=== PATIENT | male | born 1950 | race Caucasian/White ===

== ENCOUNTER 2016-08-31 17:43 | Inpatient (IN) | payer BC ==
[~2016-08-31] VITALS: Ht 180.3 cm; Wt 80.0 kg
[2016-08-31 17:45] VITALS: Ht 180.3 cm; Wt 80.0 kg
[2016-08-31] MEDS ORDERED: NITROGLYCERIN 2% 1 GM OINT PKT TD STA (17:48)
[2016-08-31] MEDS ORDERED: ASPIRIN 81 MG TAB PO STA (17:48)
[2016-08-31] MEDS ORDERED: NITROGLYCERIN (SL) 0.4 MG TAB SL PRN (18:00)
[2016-08-31] MEDS ORDERED: ASPI-664 PO (18:02)
[2016-08-31] MEDS ORDERED: DOCU-103 PO (18:02)
[2016-08-31] MEDS ORDERED: INSU100V3 IJ (18:03)
[2016-08-31] MEDS ORDERED: FURO20TA3 PO (18:04)
[2016-08-31] MEDS ORDERED: VALS160T20 PO (18:05)
[2016-08-31] MEDS ORDERED: ALBU18HF INHALATION (18:05)
[2016-08-31] MEDS ORDERED: HYDR-3011 PO (18:07)
[2016-08-31 18:09] LABS: ADD SCAN DIFF NO
[2016-08-31 18:10] LABS: BASOPHIL # 0.1 10^3/ul (0.0-0.1); BASOPHILS % 0.7 % (0.0-2.0); EOSINOPHILS # 0.3 10^3/ul (0.0-0.5); EOSINOPHILS % 2.5 % (0.0-7.0); HEMATOCRIT 34.9 % (42.0-52.0); HEMOGLOBIN 10.6 g/dl (14.0-18.0); LYMPHOCYTES % 9.7 % (15.0-51.0); MEAN CORPUSCULAR HEMOGLOBIN 24.8 pg (29.0-33.0); MEAN CORPUSCULAR HGB CONC 30.4 g/dl (32.0-37.0); MEAN CORPUSCULAR VOLUME 81.7 fl (82.0-101.0); MONOCYTE # 0.9 10^3/ul (0.3-0.9); NEUTROPHIL # 8.4 10^3/ul (1.6-7.5); NEUTROPHILS % 78.4 % (39.0-77.0); PLATELET COUNT 176 10^3/UL (140-415); RED BLOOD COUNT 4.27 10^6/ul (4.70-6.10); RED CELL DISTRIBUTION WIDTH 18.5 % (11.5-14.5); WHITE BLOOD COUNT 10.7 10^3/ul (4.8-10.8)
--- NOTE | 2016-08-31 18:11 | RADRPT ---
PROCEDURE: Chest x-ray CLINICAL INDICATION: Chest pain TECHNIQUE: Chest single view COMPARISON: None FINDINGS: There is mild cardiomegaly. Mild interstitial CHF is seen with small bilateral pleural effusions. Bony thorax is unremarkable IMPRESSION: Cardiomegaly with mild interstitial CHF and small bilateral pleural effusions right greater than lef t RPTAT: HH .Blake Manzo MD, MD Date Time Electronically viewed and signed by .Blake Manzo MD, on 08/31/2016 18:11 .W/
[2016-08-31 18:21] LABS: INR 1.25; PARTIAL THROMBOPLASTIN TIME 29.3 Sec (25.0-35.0); PROTIME 15.8 Sec (12.2-14.2); PT RATIO 1.2
[2016-08-31] MEDS ORDERED: METO25TA7 PO (18:22)
[2016-08-31 18:26] LABS: CREATININE 2.04 mg/dl (0.61-1.24)
[2016-08-31 18:27] LABS: CALCIUM 8.7 mg/dl (8.4-10.2)
[2016-08-31 18:30] VITALS: TEMP 98.3
[2016-08-31 18:39] LABS: TROPONIN-I 0.041 ng/ml (0.00-0.12)
[2016-08-31] MEDS ORDERED: ALBUTEROL 0.083% (NEB) 2.5 MG/3 ML AMP HHN STA (19:12)
[2016-08-31] MEDS ORDERED: IPRATROPIUM (NEB) 0.5 MG/2.5 ML AMP HHN ONE (19:30)
[2016-08-31] MEDS ORDERED: ONDANSETRON 4 MG INJ IV PRN (20:00)
[2016-08-31] MEDS ORDERED: ACETAMINOPHEN 325 MG TAB PO PRN (20:00)
--- NOTE | 2016-08-31 20:09 | ERA ---
ER Documentation Chief Complaint Date/Time DATE: 08/31/16 TIME: 20:07 Chief Complaint SOB HPI Patient is a 65-year-old male with coronary disease, CHF, and diabetes who presents with shortness of breath. The patient was brought in by ambulance. The patient has had 1 week of shortness of breath which has been worsening. He cannot lay down without becoming extremely short of breath. He also has swelling of his leg to the abdomen. He has a previous right lower extremity amputation. His primary doctor is Dr. Bragg. ROS All systems reviewed and are negative except as per history of present illness. Medications Home Meds Reported Medications Metoprolol Succinate* (Toprol XL*) 25 Mg Tab.sr.24h, 25 MG PO DAILY, #30 TAB 08/31/16 Hydroxyzine Hcl* (Hydroxyzine Hcl*) 25 Mg Tablet, 25 MG PO BID Y for ITCHING, # 30 TAB 08/31/16 Albuterol Sulfate* (Ventolin HFA*) 18 Gm Hfa.aer.ad, 2 PUFF INHALATION Q4H, #1 INHALER 08/31/16 Valsartan* (Diovan*) 160 Mg Tablet, 160 MG PO DAILY, TAB 08/31/16 Furosemide* (Furosemide*) 20 Mg Tablet, 20 MG PO DAILY, #60 TAB 08/31/16 Insulin Regular, Human (Humulin R) 100 Unit/1 Ml Vial, 6-15 UNIT IJ BID, VIAL INJECT 6 UNITS-QAM AND 12-15 UNITS-QPM, DEPENDS HOW MUCH BS 08/31/16 Docusate Sodium (Docusil) 100 Mg Capsule, 100 MG PO BID, #60 CAP 08/31/16 Aspirin* (Aspirin* EC) 81 Mg Tablet.dr, 81 MG PO DAILY, TAB 08/31/16 Allergies Allergies: Coded Allergies: No Known Allergy (Unverified , 08/31/16) PMhx/Soc Positive for coronary disease, CHF, and diabetes FmHx Family History: No diabetes Physical Exam Vitals Vital Signs Date Time Temp Pulse Resp B/P Pulse Ox O2 Delivery O2 Flow Rate FiO2 08/31/16 19:46 2.0 08/31/16 19:45 87 20 97 Nasal Cannula 2.0 08/31/16 18:30 98.3 83 16 129/82 100 Room Air 08/31/16 17:50 0 08/31/16 17:45 85 33 133/87 98 Physical Exam Const: Moderate distress secondary to shortness of breath Head: Atraumatic Eyes: Normal Conjunctiva ENT: Normal External Ears, Nose and Mouth. Neck: Full range of motion..~ No meningismus. Resp: Decreased breath sounds bilaterally Cardio: Regular rate and rhythm, no murmurs Abd: Soft, edema to the lower abdomen Skin: No petechiae or rashes Back: No midline or flank tenderness Ext: Previous right lower extremity amputation, left lower extremity edema Neur: Awake and alert Psych: Normal Mood and Affect Result Diagram: 08/31/16 1750 08/31/16 175 Results 24 hrs Laboratory Tests Test 08/31/16 17:50 White Blood Count 10.710^3/ul Red Blood Count 4.2710^6/ul Hemoglobin 10.6g/dl Hematocrit 34.9% Mean Corpuscular Volume 81.7fl Mean Corpuscular Hemoglobin 24.8pg Mean Corpuscular Hemoglobin Concent 30.4g/dl Red Cell Distribution Width 18.5% Platelet Count 63134^3/UL Mean Platelet Volume 10.0fl Neutrophils % 78.4% Lymphocytes % 9.7% Monocytes % 8.0% Eosinophils % 2.5% Basophils % 0.7% Nucleated Red Blood Cells % 0.0/100WBC Neutrophils # 8.410^3/ul Lymphocytes # 1.010^3/ul Monocytes # 0.910^3/ul Eosinophils # 0.310^3/ul Basophils # 0.110^3/ul Nucleated Red Blood Cells # 0.010^3/ul Prothrombin Time 15.8Sec Prothrombin Time Ratio 1.2 INR International Normalized Ratio 1.25 Activated Partial Thromboplast Time 29.3Sec Sodium Level 140mmol/L Potassium Level 5.0mmol/L Chloride Level 104mmol/L Carbon Dioxide Level 23mmol/L Anion Gap 18 Blood Urea Nitrogen 43mg/dl Creatinine 2.04mg/dl Glucose Level 95mg/dl Calcium Level 8.7mg/dl Troponin I 0.041ng/ml Current Medications Medications (Trade) Dose Ordered Sig/Deborah Route PRN Reason Start Time Stop Time Status Last Admin Dose Admin Aspirin (Aspirin) 162 mg ONCE STAT PO 08/31/16 17:48 08/31/16 17:49 DC 08/31/16 17:58 Nitroglycerin (Nitroglycerin 2% Oint) 1 inch ONCE STAT TD 08/31/16 17:48 08/31/16 17:49 DC 08/31/16 17:59 Nitroglycerin (Nitroglycerin (Sl Tab) 0.4 Mg) 1 tab Q5M UP TO 3 DOSES PRN SL CHEST PAIN 08/31/16 18:00 08/31/16 17:57 Albuterol (Proventil 0.083% (Neb)) 5 mg ONCE STAT HHN 08/31/16 19:12 08/31/16 19:13 DC 08/31/16 19:44 Ipratropium [place] (Atrovent 0.02% (Neb)) 0.5 mg ONCE ONCE HHN 08/31/16 19:30 08/31/16 19:31 DC 08/31/16 19:44 Ondansetron HCl (Zofran Inj) 4 mg ER BRIDGE PRN IV NAUSEA AND/OR VOMITING 08/31/16 20:00 09/01/16 19:59 Acetaminophen (Tylenol Tab) 650 mg ER BRIDGE PRN PO MILD PAIN/FEVER 08/31/16 20:00 09/01/16 19:59 Procedures/MDM EKG read by me: Rate/Rhythm: Left bundle branch block a normal rate Intervals: Normal Impression: Left bundle branch block with negative Sgarbossa criteria Chest x-ray shows cardiomegaly, edema, and pleural effusions per radiology. Patient is a 65-year-old male with cardiac disease who presents with what appears to be acute CHF exacerbation. I believe he has anasarca with swelling to the abdomen as well. The patient was given Lasix, aspirin, and nitroglycerin. The patient will be admitted to the care of Dr. Perez from the panel team. Patient will be admitted to a trauma to bed. At this point I doubt pneumonia or pneumothorax, or pulmonary embolism. Departure Diagnosis: Primary Impression: Shortness of breath Additional Impressions: Acute exacerbation of CHF (congestive heart failure) Qualified Code: I50.9 - Acute on chronic congestive heart failure, unspecified congestive heart failure type Anemia Qualified Code: D64.9 - Anemia, unspecified type Condition: DHARA Ferrell MD Aug 31, 2016 20:09
[2016-08-31 21:00] VITALS: BP 133/74; PULSE 89; RESP 17
[2016-09-01] VITALS (12 sets, daily range): BP systolic 114–139; BP diastolic 59–77; PULSE 75–94; RESP 16–19
[2016-09-01 00:16] LABS: TROPONIN-I 0.04 ng/ml (0.00-0.12)
[2016-09-01 00:21] LABS: CK-MB 0.79 ng/ml (0.0-2.4)
[2016-09-01] MEDS ORDERED: GLUCOSE GEL 15 GRAM TUBE BUCCAL PRN (05:00)
[2016-09-01] MEDS ORDERED: GLUCOSE GEL 15 GRAM TUBE PO PRN ×2 (05:00)
[2016-09-01] MEDS ORDERED: ONDANSETRON 4 MG INJ IV PRN (05:00)
[2016-09-01] MEDS ORDERED: GLUCAGON 1 MG INJ IM PRN (05:00)
[2016-09-01] MEDS ORDERED: DEXTROSE 50% 50 ML SYRINGE IV PRN ×2 (05:00)
[2016-09-01] MEDS ORDERED: ACETAMINOPHEN 325 MG TAB PO PRN (05:00)
[2016-09-01] MEDS ORDERED: FUROSEMIDE 40 MG INJ IV SCH (06:00)
--- NOTE | 2016-09-01 07:53 | HP ---
DATE OF ADMISSION: 08/31/2016 TIME SEEN: 2300 CHIEF COMPLAINT: Shortness of breath. HISTORY OF PRESENT ILLNESS: The patient is a 65-year-old male with a history of diabetes, CHF, righ t above knee amputation, probable old AL in [place] a few years ago, peripheral neuropathy, diabetes , and hypertension who presented to the emergency department with shortness of breath. The symptoms have been progressively getting worse for over a week now. The patient's home medication includes albuterol as well as among other medications, but the patient has not always been compliant with med ication. He also reported left lower extremity swelling (notes that he has right-above knee amputat ion) and also orthopnea. Denied chest pain, nausea, vomiting, diaphoresis, fever, chills. When he presented to the ER, vitals were stable except he was initially tachypneic with respiratory rate in the 30s. Laboratory value shows a hemoglobin of 10.6, BUN 43, creatinine 2, otherwise the r est of his basic labs are within normal limits. Chest x-ray shows cardiomegaly with mild interstitial CHF and small bilateral pleural effusions, rig ht greater than left. REVIEW OF SYSTEMS: A 12-point review was performed, negative except as mentioned in the HPI. PAST MEDICAL HISTORY: As per HPI. PAST SURGICAL HISTORY: Right above-knee amputation. SURGICAL HISTORY: Right above-knee amputation. ALLERGIES: NO KNOWN DRUG ALLERGIES. HOME MEDICATIONS: 1. Albuterol. 2. Toprol XL. 3. Diovan 4. Aspirin. 5. Atarax 6. Lasix. 8. Colace. 9. Regular insulin. PHYSICAL EXAMINATION: VITAL SIGNS: Stable. GENERAL: The patient in some distress due to shortness of breath. HEENT: Normocephalic, atraumatic. Extraocular muscles are intact. Pupils are reactive to light. No scleral icterus. CARDIOVASCULAR: Regular rate and rhythm. LUNGS: He has decreased breath sounds at the bases. ABDOMEN: Soft. There is anasarca. Positive bowel sounds. There is some discomfort to deep palpat ion with no guarding, no rigidity, no rebound tenderness. EXTREMITIES: Right above-knee amputation and left lower extremity edema. LABORATORY DATA: Pertinent positives as mentioned in the HPI. IMAGING: Chest x-ray results as mentioned in the HPI. IMPRESSION: 1. Shortness of breath, combination of congestive heart failure exacerbation and renal insufficienc y. 2. Congestive heart failure exacerbation. 3. Presumed acute renal insufficiency. 4. Likely history of coronary artery disease. 5. Hypertension. 6. Type 1 diabetes. PLAN: Continue telemetry monitoring. He will receive breathing treatments. Will hold Lasix for no w given elevated creatinine. Will give albumin. We will monitor her urine output closely. We will obtain a 2-D echo. We will trend his troponins, the first 2 so far have been negative. We will tabatha ce a cardiology consult. Will continue his home medications with adjustments as needed. He will be on insulin for diabetes. Will check A1c, fasting lipid, and TSH in the morning. Will check for fe rritin, iron profile, as well as FOBT to work up his microcytic anemia. Further workup and management will be per clinical course. Dictated By: BRADLEY GUTIERREZ/IMTIAZ Conf#: [id number] DID#: [id number]
[2016-09-01 07:58] LABS: ADD SCAN DIFF NO
[2016-09-01] MEDS: INSULIN ASPART [NOVOLOG] 3 ML PEN SC SCH ×4 (08:00→21:00)
[2016-09-01 08:07] LABS: BASOPHILS % 0.3 % (0.0-2.0); EOSINOPHILS # 0.1 10^3/ul (0.0-0.5); EOSINOPHILS % 0.8 % (0.0-7.0); HEMATOCRIT 32.1 % (42.0-52.0); HEMOGLOBIN 9.6 g/dl (14.0-18.0); LYMPHOCYTES # 0.8 10^3/ul (0.8-2.9); LYMPHOCYTES % 6.3 % (15.0-51.0); MEAN CORPUSCULAR HEMOGLOBIN 24.1 pg (29.0-33.0); MEAN CORPUSCULAR HGB CONC 29.9 g/dl (32.0-37.0); MEAN CORPUSCULAR VOLUME 80.7 fl (82.0-101.0); MEAN PLATELET VOLUME 11.1 fl (7.4-10.4); MONOCYTE # 1.1 10^3/ul (0.3-0.9); MONOCYTES % 8.3 % (0.0-11.0); NEUTROPHIL # 10.6 10^3/ul (1.6-7.5); NEUTROPHILS % 83.7 % (39.0-77.0); PLATELET COUNT 162 10^3/UL (140-415); RED BLOOD COUNT 3.98 10^6/ul (4.70-6.10); RED CELL DISTRIBUTION WIDTH 18.4 % (11.5-14.5); WHITE BLOOD COUNT 12.7 10^3/ul (4.8-10.8)
[2016-09-01 08:26] LABS: ALBUMIN 3.3 g/dl (3.3-4.9); POTASSIUM 4.8 mmol/L (3.5-5.1)
[2016-09-01 08:28] LABS: BILIRUBIN,INDIRECT 0.7 mg/dl (0-1.1); BILIRUBIN,TOTAL 0.7 mg/dl (0.2-1.3); CREATININE 1.94 mg/dl (0.61-1.24)
[2016-09-01 08:29] LABS: CALCIUM 8.6 mg/dl (8.4-10.2); TOTAL PROTEIN 7.1 g/dl (6.1-8.1)
[2016-09-01] MEDS ORDERED: hydrOXYzine HCL 25 MG TAB GTB PRN (08:30)
[2016-09-01 08:41] LABS: ALBUMIN/GLOBULIN RATIO 0.86; CHOL/HDL RATIO 4.2 RATIO
[2016-09-01 08:42] LABS: TROPONIN-I 0.045 ng/ml (0.00-0.12)
--- NOTE | 2016-09-01 08:51 | RADRPT ---
PROCEDURE: US KIDNEYS AND BLADDER CLINICAL INDICATION: Renal insufficiency TECHNIQUE: Sonographic evaluation of the kidneys and bladder was performed using a curved array tr ansducer. COMPARISON: None. FINDINGS: Right kidney measures 10.7 cm in length. Left kidney measures 10.8 cm in length. Moderate bilateral cortical thinning and echogenicity suggestive of medical renal disease. Benign appearing cyst is seen in the right kidney. No hydronephrosis bilaterally. The incompletely distended bladder is grossly unremarkable. Bilateral ureteral jets are seen. Moderate ascites is seen. IMPRESSION: Moderate bilateral cortical thinning and echogenicity suggestive of medical renal disease. No hydro nephrosis. Benign appearing cyst seen in the right kidney. Moderate ascites. RPTAT:PP .Femi Feliz MD, Date Time Electronically viewed and signed by .Femi Feliz MD, on 09/01/2016 08:51 .V/
[2016-09-01 08:54] LABS: CK-MB 0.66 ng/ml (0.0-2.4)
[2016-09-01] MEDS ORDERED: VALSARTAN 160 MG TAB PO SCH (09:00)
[2016-09-01] MEDS: METOPROLOL (XL) 25 MG TAB PO SCH (09:33)
[2016-09-01] MEDS: DOCUSATE SODIUM 100 MG CAP PO SCH (09:33)
[2016-09-01] MEDS: ASPIRIN (EC) 81 MG TAB PO SCH (09:33)
[2016-09-01] MEDS: HEPARIN 5,000 UNIT/0.5 ML VIAL SC SCH ×2 (09:35→22:00)
--- NOTE | 2016-09-01 10:21 | PN ---
Date/Time of Note Date/Time of Note DATE: 09/01/16 TIME: 10:17 Assessment/Plan VTE Prophylaxis VTE Prophylaxis Intervention: heparin Lines/Catheters IV [facility] Saline Lock Assessment/Plan Chief Complaint/Hosp Course Assessment and plan 1. Dyspnea secondary to CHF exacerbation and renal insufficiency. Medications to be renally dosed. Surgeon Chief and caterpillar driver consulted. Diuretic per nephrology recommendations. Continue on O2 and titrate down as tolerated. Bronchodilators as needed. 2. CHF exacerbation. Echocardiogram pending. Follow up on result. Continue optimization with cardiovascular medications 3. Acute on likely chronic kidney disease. Monitor renal panel. Avoid nephrotoxic medications as possible. 4. History of CAD. Continue on antiplatelet therapy 5. History of hypertension. On antihypertensives and adjust as needed 6. Diabetes. Follow up on A1c. Continue insulin regimen and adjust as needed Disposition and plan: Await cardiology section crews activities clerk input. Continue on O2. Follow-up with tachycardia gram. Continue inpatient monitoring Discussed plan of care with Dr. Rasmussen Problems: Subjective 24 Hr Interval Summary Free Text/Dictation Still reports having some shortness of breath. Denies any chest pain Exam/Review of Systems Vital Signs Vitals Vital Signs Date Time Temp Pulse Resp B/P Pulse Ox O2 Delivery O2 Flow Rate FiO2 09/01/16 09:04 89 09/01/16 07:58 Nasal Cannula 2.0 09/01/16 07:39 98.4 19 124/74 97 Intake and Output 08/31/16 08/31/16 09/01/16 15:00 23:00 07:00 Output Total 250 ml Balance -250 ml Exam Constitutional: alert, oriented Psych: nl mood/affect Head: normocephalic Eyes: nl conjunctiva Neck: non-tender, supple, No jvd Respiratory: diminished breath sounds, wheezing Cardiovascular: other (regular rate) Gastrointestinal: other (protuberant,), soft Musculoskeletal: other (right AKA), swelling (left lower extremity) Neurological: INDEPENDENT JEWELER II-XII intact, nl mental status, nl speech Skin: No rash or lesions Results Result Diagram: 09/01/16 0710 09/01/16 0710 Results 24 hrs Laboratory Tests Test 08/31/16 17:50 08/31/16 23:30 09/01/16 00:34 09/01/16 07:10 White Blood Count 10.7 12.7 H Red Blood Count 4.27 L 3.98 L Hemoglobin 10.6 L 9.6 L Hematocrit 34.9 L 32.1 L Mean Corpuscular Volume 81.7 L 80.7 L Mean Corpuscular Hemoglobin 24.8 L 24.1 L Mean Corpuscular Hemoglobin Concent 30.4 L 29.9 L Red Cell Distribution Width 18.5 H 18.4 H Platelet Count 176 162 Mean Platelet Volume 10.0 11.1 H Neutrophils % 78.4 H 83.7 H Lymphocytes % 9.7 L 6.3 L Monocytes % 8.0 8.3 Eosinophils % 2.5 0.8 Basophils % 0.7 0.3 Nucleated Red Blood Cells % 0.0 0.0 Neutrophils # 8.4 H 10.6 H Lymphocytes # 1.0 0.8 Monocytes # 0.9 1.1 H Eosinophils # 0.3 0.1 Basophils # 0.1 0.0 Nucleated Red Blood Cells # 0.0 0.0 Prothrombin Time 15.8 H Prothrombin Time Ratio 1.2 INR International Normalized Ratio 1.25 Activated Partial Thromboplast Time 29.3 Sodium Level 140 139 Potassium Level 5.0 4.8 Chloride Level 104 105 Carbon Dioxide Level 23 21 Anion Gap 18 H 18 H Blood Urea Nitrogen 43 H 41 H Creatinine 2.04 H 1.94 H Glucose Level 95 139 # Calcium Level 8.7 8.6 Troponin I 0.041 0.040 0.045 Creatine Kinase 38 38 Creatine Kinase Index 2.1 1.7 Creatinine Kinase MB (Mass) 0.79 0.66 Bedside Glucose 125 Hemoglobin A1c 5.4 Total Bilirubin 0.7 Direct Bilirubin 0.00 Indirect Bilirubin 0.7 Aspartate Amino Transf (AST/SGOT) 17 Alanine Aminotransferase (ALT/SGPT) 19 Alkaline Phosphatase 128 H Total Protein 7.1 Albumin 3.3 Globulin 3.80 H Albumin/Globulin Ratio 0.86 Triglycerides Level 81 Cholesterol Level 124 LDL Cholesterol, Calculated 79 HDL Cholesterol 29 L Cholesterol/HDL Ratio 4.2 Thyroid Stimulating Hormone (TSH) Pending Test 09/01/16 08:20 Bedside Glucose 131 Medications Medications Current Medications Heparin Sodium (Porcine) (Heparin (5000 Units/0.5 ml)) 5,000 unit BID SC Last administered on 09/01/16t 09:35; Admin Dose 5,000 UNIT; Start 09/01/16 at 09:00 Acetaminophen (Tylenol Tab) 650 mg Q6H PRN PO PAIN AND OR ELEVATED TEMP; Start 09/01/16 at 05:00 Insulin Glargine (Lantus) 12 unit DAILY@20 SC ; Start 09/01/16 at 20:00 Diagnostic Test (Pha) (Accu-Chek) 1 ea 02 XX ; Start 09/02/16 at 02:00 Ondansetron HCl (Zofran Inj) 4 mg Q6H PRN IV NAUSEA AND/OR VOMITING; Start at 05:00 Miscellaneous Information 1 ea NOTE XX ; Start 09/01/16 at 05:00 Glucose (Glutose) 15 gm Q15M PRN PO DECREASED GLUCOSE; Start 09/01/16 at 05:00 Glucose (Glutose) 22.5 gm Q15M PRN PO DECREASED GLUCOSE; Start 09/01/16 at 05: 00 Dextrose (D50w Syringe) 25 ml Q15M PRN IV DECREASED GLUCOSE; Start 09/01/16 at 05:00 Dextrose (D50w Syringe) 50 ml Q15M PRN IV DECREASED GLUCOSE; Start 09/01/16 at 05:00 Glucagon (Glucagen) 1 mg Q15M PRN IM DECREASED GLUCOSE; Start 09/01/16 at 05:00 Glucose (Glutose) 15 gm Q15M PRN BUCCAL DECREASED GLUCOSE; Start 09/01/16 at 05 :00 Aspirin (Halfprin) 81 mg DAILY PO Last administered on 09/01/16 09:33; Admin Dose 81 MG; Start 09/01/16 at 09:00 Metoprolol Succinate (Toprol Xl) 25 mg DAILY PO Last administered on 09/01/16 09:33; Admin Dose 25 MG; Start 09/01/16 at 09:00 Hydroxyzine HCl (Atarax) 25 mg Q6H PRN GTB ITCHING; Start 09/01/16 at 08:30 Valsartan (Diovan) 160 mg DAILY PO Last administered on 09/01/16 09:33; Admin Dose 160 MG; Start 09/01/16 at 09:00 Docusate Sodium (Colace) 100 mg DAILY PO Last administered on 09/01/16 09:33; Admin Dose 100 MG; Start 09/01/16 at 09:00 URSULA COOK Sep 01, 2016 10:20
--- NOTE | 2016-09-01 12:52 | CONS ---
DATE OF ADMISSION: 08/31/2016 DATE OF CONSULTATION: 09/01/2016 HISTORY OF PRESENT ILLNESS: Thank you very much for allowing me to evaluate this 65-year-old male w ith known diabetes, history of heart failure, peripheral vascular disease with above the right knee amputation, antecedent [place], neuropathy, admitted to the hospital with shortness of breath with eviden ce of renal insufficiency. HISTORICAL EVENTS: As you well know, this patient does have known diabetes and objective evidence m acrovascular disease, accompanied by coronary artery disease, admitted to the hospital with increasi ng shortness of breath during the last week. My conversation with the patient's daughter revealed t hat he does have underlying renal disease and laboratory studies will hopefully be forwarded to me f or my review. He presently remains tachypneic per the family and has had no chest pain. MEDICATIONS PRIOR TO ADMISSION INCLUDE: 1. Albuterol. 2. Toprol. 3. Diovan. 4. Aspirin. 5. Atarax 6. Lasix. 7. Colace. 8. Regular insulin. PHYSICAL EXAMINATION: VITAL SIGNS: BP 114/59, respirations were 22, temperature 99.2. EYES: Extraocular muscles were full. NOSE, MOUTH, AND THROAT: Normal. NECK: Supple. LUNGS: There were rales and rhonchi bilaterally. HEART: Rhythm slightly irregular without third sound, 1/6 systolic murmur. ABDOMEN: Nontender. Liver and spleen were not palpable. No masses or tenderness were noted. EXTREMITIES: There was amputation of the right lower extremity, no edema. Sacrum revealed 2+ edema . LABORATORY AND DIAGNOSTIC STUDIES: Hematocrit 32.1 today, yesterday 34.9, white count 10,700 yester day, 12,700 today, platelet count was normal. Creatinine was 1.94 today, yesterday 2.04. Electroly maik were unrevealing. IMAGING STUDIES: Included a renal ultrasound that revealed cortical thinning bilaterally without hy dronephrosis and a chest x-ray compatible with congestive heart failure. IMPRESSION: 1. 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 2. At this point, would continue his ARB as it will be beneficial with respect to treatment of his CHF and continued diurese. Pending reviewing laboratory studies from his regular physician and obse rving creatinines going forward, I will decide whether to discontinue ARB. I will be glad to follow him with you. Dictated By: JACKIE SCOTT/IMTIAZ Conf#: [id number] DID#: [id number]
[2016-09-01 13:32] LABS: THYROID STIMULATING HORMONE 2.65 MIU/L (0.465-4.680)
[2016-09-01 14:03] LABS: IRON 13 ug/dl (35-150)
[2016-09-01 14:12] LABS: TOTAL IRON BINDING CAPACITY 275 ug/dl (241-421)
[2016-09-01 14:31] LABS: FERRITIN 92.1 ng/ml (11.1-264.0)
[2016-09-01 15:36] LABS: ADD UMIC YES; URINE BILIRUBIN (Dip) NEGATIVE (NEGATIVE); URINE BLOOD (Dip) TRACE (NEGATIVE); URINE COLOR LT. YELLOW (YELLOW); URINE GLUCOSE (Dip) NEGATIVE (NEGATIVE); URINE KETONES (Dip) NEGATIVE (NEGATIVE); URINE LEUKOCYTE ESTERASE (Dip) NEGATIVE (NEGATIVE); URINE NITRITE (Dip) NEGATIVE (NEGATIVE); URINE TOTAL PROTEIN (Dip) 2+ (NEGATIVE); URINE UROBILINOGEN (Dip) 0.2 E.U./dL (0.1-1.0)
[2016-09-01 15:53] LABS: TRANSITIONAL EPI CELLS,URINE MODERATE; URINE RBCS 0-2 /HPF (0)
[2016-09-01 15:54] LABS: BACTERIA,URINE FEW
[2016-09-01 16:08] LABS: PROTEIN/CREAT RATIO 1.75 RATIO
--- NOTE | 2016-09-01 17:16 | RADRPT ---
PROCEDURE: Limited US Pelvis. CLINICAL INDICATION: Pre and post bladder scan for urinary retention. TECHNIQUE: Multiple sonographic images of the pelvis were obtained utilizing a transabdominal and endovaginal technique. The images were reviewed on a PACS workstation. COMPARISON: No. FINDINGS: The urinary bladder measures 7.4 x 4.35 7.3 cm for total volume of 164 ml. Postvoid images revealed the urinary bladder measuring 7.4 x 4.3 x 6 cm. Postvoid residual of 101 ml is noted. There is a m oderate amount of ascites. IMPRESSION: 1. 100.1 ml postvoid residual. 2. Ascites. Physician Bridget Date Time Electronically viewed and signed by Physician Bridget on 09/01/2016 17:16 /
[2016-09-01] MEDS: INSULIN GLARGINE [LANtus] 3 ML PEN SC SCH (21:48)
[2016-09-02] VITALS (12 sets, daily range): BP systolic 108–133; BP diastolic 59–63; PULSE 72–77; RESP 16–20
--- NOTE | 2016-09-02 00:17 | RADRPT ---
Echocardiogram Report Patient Name: GERSON LYN Gender: Male Date: 1950 Study Date: 01-Sep-2016 Collarette Separator: Luis Miguel Coley [facility] Location: [id number] Ref. Physician: BRADLEY SETHI Quality: Adequate Procedures: Transthoracic echocardiogram with complete 2D, M-Mode, and doppler examination. Indications: Congestive Heart Failure. 2D/M Mode Doppler Measurement Value Normal Ranges Measurement Value Normal Ranges LVIDd 2D 5.5 3.5 - 5.6 cm AV Peak Evangelista 1.1 m/sec LVIDs 2D 4.9 2.1 - 4.1 cm AV Peak PG 4.4 mmHg LVPWd 2D 0.9 0.6 - 1.1 cm LVOT Peak Evangelista 0.8 m/sec IVSd 2D 1.0 0.6 - 1.1 cm LVOT Peak PG 2.4 mmHg AoR Diam 2D 3.7 2.0 - 3.7 cm TR Peak Evangelista 2.9 m/sec EDV 2D 146.0 cm3 TR Peak PG 34.3 mmHg ESV 2D 118.7 cm3 RVSP 49.0 mmHg LA Dimen 2D 4.3 2.3 - 4.0 cm Findings Left Ventricle: Normal left ventricular cavity size. Normal left ventricular wall thickness. Severe left ventricular systolic dysfunction. Ejection fraction is visually estimated at 1520 %. Multiple segmental wall motion abnormalities. These segments of the LV are dyskinetic mid septum segment. Right Ventricle: Normal right ventricular size. Normal right ventricular systolic function. Left Atrium: There is mild enlargement of left atrium. Right Atrium: There is mild enlargement of right atrium. Mitral Valve: Mild mitral annular calcification. Mild mitral valve regurgitation. Aortic Valve: No hemodynamically significant aortic stenosis by doppler. Aortic cusps appear mildly calcified. Tricuspid Valve: Estimated peak PA systolic pressure 49 mmHg. Tricuspid valve appears mildly thickened. There is mild tricuspid regurgitation. Pulmonic Valve: Pulmonic valve not well visualized. There is trace pulmonic regurgitation. Pericardium: Normal pericardium with no significant pericardial effusion. Aorta: Normal aortic root. IVC: Dilated IVC without respiratory collapse consistent with elevated right atrial pressure. Conclusions 1.Normal left ventricular cavity size. Normal left ventricular wall thickness. Severe left ventricular systolic dysfunction. Ejection fraction is visually estimated at 15-20 %. Multiple segmental wall motion abnormalities. These segments of the LV are dyskinetic mid septum segment. 2.There is mild enlargement of left atrium. 3.There is mild enlargement of right atrium. 4.Mild mitral annular calcification. Mild mitral valve regurgitation. 5.No hemodynamically significant aortic stenosis by doppler. Aortic cusps appear mildly calcified. 6.Estimated peak PA systolic pressure 49 mmHg. Tricuspid valve appears mildly thickened. There is mild tricuspid regurgitation. 7.Pulmonic valve not well visualized. There is trace pulmonic regurgitation. Electronically Signed By: Ochoa Oneill 02-Sep-2016 00:16:49 -0700 Patient Name: GERSON LYN Study Date: 01-Sep-2016 [id number]
[2016-09-02] MEDS ORDERED: ACCU-CHEK XX SCH (02:00)
[2016-09-02] MEDS: ACCU-CHEK XX SCH (02:00)
[2016-09-02] MEDS: IPRATROPIUM (NEB) 0.5 MG/2.5 ML AMP HHN PRN (03:09)
[2016-09-02] MEDS: LEVALBUTEROL (NEB) 0.63 MG/3 ML AMP HHN PRN (03:09)
[2016-09-02 07:50] LABS: ADD SCAN DIFF NO
[2016-09-02 07:54] LABS: BASOPHILS % 0.4 % (0.0-2.0); EOSINOPHILS # 0.4 10^3/ul (0.0-0.5); EOSINOPHILS % 3.8 % (0.0-7.0); HEMATOCRIT 32.7 % (42.0-52.0); HEMOGLOBIN 9.5 g/dl (14.0-18.0); LYMPHOCYTES # 1.2 10^3/ul (0.8-2.9); MEAN CORPUSCULAR HEMOGLOBIN 24.1 pg (29.0-33.0); MEAN CORPUSCULAR HGB CONC 29.1 g/dl (32.0-37.0); MEAN CORPUSCULAR VOLUME 82.8 fl (82.0-101.0); MONOCYTE # 0.9 10^3/ul (0.3-0.9); MONOCYTES % 9.6 % (0.0-11.0); NEUTROPHIL # 7.1 10^3/ul (1.6-7.5); NEUTROPHILS % 73.9 % (39.0-77.0); PLATELET COUNT 161 10^3/UL (140-415); RED BLOOD COUNT 3.95 10^6/ul (4.70-6.10); RED CELL DISTRIBUTION WIDTH 18.3 % (11.5-14.5); WHITE BLOOD COUNT 9.7 10^3/ul (4.8-10.8)
[2016-09-02] MEDS: INSULIN ASPART [NOVOLOG] 3 ML PEN SC SCH ×4 (08:00→21:00)
[2016-09-02 08:12] LABS: CALCIUM 8.5 mg/dl (8.4-10.2); CREATININE 2.2 mg/dl (0.61-1.24); MAGNESIUM 2.1 mg/dl (1.7-2.5); PHOSPHORUS 4.6 mg/dl (2.5-4.9); POTASSIUM 5.4 mmol/L (3.5-5.1)
--- NOTE | 2016-09-02 08:42 | CONS ---
Date/Time of Note Date/Time of Note DATE: 09/02/16 TIME: 08:39 Assessment/Plan Assessment/Plan Additional Assessment/Plan 1. CKD, stable sec to ateriolonephrosclerosis, ? DM (non-nephrotic proteinuria) 2. Elev K, I stopped ARB and will inc lasix today and observe renal fx 3. Ascites is present, consider paracentesis altho JVD is present. Consultation Date/Type/Reason Admit Date/Time Aug 31, 2016 at 19:32 Initial Consult Date Detailed Summary Respiratory: shortness of breath Cardiovascular: No chest pain Gastrointestinal: No pain Exam/Review of Systems Vital Signs Vitals Vital Signs Date Time Temp Pulse Resp B/P Pulse Ox O2 Delivery O2 Flow Rate FiO2 09/02/16 08:25 72 09/02/16 07:42 98.6 20 112/62 97 09/02/16 03:12 21 09/01/16 19:42 Nasal Cannula 2.0 Intake and Output 09/01/16 09/01/16 09/02/16 15:00 23:00 07:00 Intake Total 600 ml Output Total 390 ml 400 ml 325 ml Balance -390 ml 200 ml -325 ml Exam Neck: jvd Respiratory: diminished breath sounds (with rales pesent bilat) Cardiovascular: regular rate and rhythm Gastrointestinal: soft Extremities: edema (sacral edema is present) Results Result Diagram: 09/02/16 0716 09/02/16 0716 Results 24 hrs Laboratory Tests Test 09/01/16 12:37 09/01/16 13:29 09/01/16 14:45 09/01/16 17:14 Bedside Glucose 170 165 Iron Level 13 L Total Iron Binding Capacity 275 Percent Iron Saturation 5 L Ferritin 92.1 Troponin I 0.044 B-Type Natriuretic Peptide 97953 H Urine Color LT. YELLOW Urine Clarity CLOUDY H Urine pH 5.5 Urine Specific Cerulean 1.020 Urine Ketones NEGATIVE Urine Nitrite NEGATIVE Urine Bilirubin NEGATIVE Urine Urobilinogen 0.2 E.U./dL Urine Leukocyte Esterase NEGATIVE Urine Microscopic RBC 0-2 Urine Microscopic WBC NONE SEEN Urine Transitional Epithelial Cells MODERATE Urine Amorphous Urates MANY Urine Bacteria FEW Urine Hemoglobin TRACE Urine Random Creatinine 55.79 Urine Protein/Creatinine Ratio 1.75 Urine Glucose NEGATIVE Urine Total Protein 98.0 H Test 09/01/16 21:44 09/02/16 03:12 09/02/16 07:16 09/02/16 07:51 Bedside Glucose 180 140 102 White Blood Count 9.7 # Red Blood Count 3.95 L Hemoglobin 9.5 L Hematocrit 32.7 L Mean Corpuscular Volume 82.8 Mean Corpuscular Hemoglobin 24.1 L Mean Corpuscular Hemoglobin Concent 29.1 L Red Cell Distribution Width 18.3 H Platelet Count 161 Mean Platelet Volume 10.0 Neutrophils % 73.9 Lymphocytes % 12.0 L Monocytes % 9.6 Eosinophils % 3.8 Basophils % 0.4 Nucleated Red Blood Cells % 0.0 Neutrophils # 7.1 Lymphocytes # 1.2 Monocytes # 0.9 Eosinophils # 0.4 Basophils # 0.0 Nucleated Red Blood Cells # 0.0 Sodium Level 138 Potassium Level 5.4 H Chloride Level 108 Carbon Dioxide Level 24 Anion Gap 11 # Blood Urea Nitrogen 48 H Creatinine 2.20 H Glucose Level 105 Calcium Level 8.5 Phosphorus Level 4.6 Magnesium Level 2.1 Medications Medications Current Medications Heparin Sodium (Porcine) (Heparin (5000 Units/0.5 ml)) 5,000 unit BID SC Last administered on 09/01/16 22:00; Admin Dose 5,000 UNIT; Start 09/01/16 at 09:00 Acetaminophen (Tylenol Tab) 650 mg Q6H PRN PO PAIN AND OR ELEVATED TEMP; Start 09/01/16 at 05:00 Insulin Glargine (Lantus) 12 unit DAILY@20 SC Last administered on 09/01/16 21 :48; Admin Dose 12 UNIT; Start 09/01/16 at 20:00 Diagnostic Test (Pha) (Accu-Chek) 1 ea 02 XX Last administered on 09/02/16 02: 00; Admin Dose 1 EA; Start 09/02/16 at 02:00 Ondansetron HCl (Zofran Inj) 4 mg Q6H PRN IV NAUSEA AND/OR VOMITING; Start at 05:00 Miscellaneous Information 1 ea NOTE XX ; Start 09/01/16 at 05:00 Glucose (Glutose) 15 gm Q15M PRN PO DECREASED GLUCOSE; Start 09/01/16 at 05:00 Glucose (Glutose) 22.5 gm Q15M PRN PO DECREASED GLUCOSE; Start 09/01/16 at 05: 00 Dextrose (D50w Syringe) 25 ml Q15M PRN IV DECREASED GLUCOSE; Start 09/01/16 at 05:00 Dextrose (D50w Syringe) 50 ml Q15M PRN IV DECREASED GLUCOSE; Start 09/01/16 at 05:00 Glucagon (Glucagen) 1 mg Q15M PRN IM DECREASED GLUCOSE; Start 09/01/16 at 05:00 Glucose (Glutose) 15 gm Q15M PRN BUCCAL DECREASED GLUCOSE; Start 09/01/16 at 05 :00 Aspirin (Halfprin) 81 mg DAILY PO Last administered on 09/01/16 09:33; Admin Dose 81 MG; Start 09/01/16 at 09:00 Metoprolol Succinate (Toprol Xl) 25 mg DAILY PO Last administered on 09/01/16 09:33; Admin Dose 25 MG; Start 09/01/16 at 09:00 Hydroxyzine HCl (Atarax) 25 mg Q6H PRN GTB ITCHING; Start 09/01/16 at 08:30 Valsartan (Diovan) 160 mg DAILY PO Last administered on 09/01/16 09:33; Admin Dose 160 MG; Start 09/01/16 at 09:00 Docusate Sodium (Colace) 100 mg DAILY PO Last administered on 09/01/16 09:33; Admin Dose 100 MG; Start 09/01/16 at 09:00 JACKIE FROST MD Sep 02, 2016 08:42
[2016-09-02] MEDS: ASPIRIN (EC) 81 MG TAB PO SCH (11:00)
[2016-09-02] MEDS: METOPROLOL (XL) 25 MG TAB PO SCH (11:01)
[2016-09-02] MEDS: DOCUSATE SODIUM 100 MG CAP PO SCH (11:01)
[2016-09-02] MEDS: HEPARIN 5,000 UNIT/0.5 ML VIAL SC SCH ×2 (11:02→21:45)
[2016-09-02] MEDS: FUROSEMIDE 40 MG INJ IV SCH ×2 (11:02→18:45)
--- NOTE | 2016-09-02 15:59 | PN ---
Date/Time of Note Date/Time of Note DATE: 09/02/16 TIME: 15:54 Assessment/Plan VTE Prophylaxis VTE Prophylaxis Intervention: heparin Lines/Catheters IV [facility]from [facility] Saline Lock Urinary Cath still in place: No Assessment/Plan Chief Complaint/Hosp Course Assessment and plan 1. Dyspnea secondary to CHF exacerbation and renal insufficiency. Medications to be renally dosed. Diuretic per nephrology recommendations. Continue on O2 and titrate down as tolerated. Bronchodilators as needed. Cardiology to follow 2. CHF exacerbation. EF: 15-20%. cont optimization with cardiovascular medications 3. Acute on likely chronic kidney disease. Avoid nephrotoxic medications as possible. 4. History of CAD. Continue on antiplatelet therapy 5. History of hypertension. On antihypertensives and adjust as needed 6. Diabetes.. 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 cont diuretic with monitor of renal panel. await for clinical improvement Discussed plan of care with Dr. Rasmussen Problems: Subjective 24 Hr Interval Summary Free Text/Dictation no s/s of distress. reports better breathing Exam/Review of Systems Vital Signs Vitals Vital Signs Date Time Temp Pulse Resp B/P Pulse Ox O2 Delivery O2 Flow Rate FiO2 09/02/16 12:12 77 09/02/16 12:10 97.8 18 115/60 93 09/02/16 08:00 Nasal Cannula 2.0 09/02/16 03:12 21 Intake and Output 09/01/16 09/01/16 09/02/16 14:59 22:59 06:59 Intake Total 600 ml Output Total 390 ml 400 ml 200 ml Balance -390 ml 200 ml -200 ml Exam Constitutional: alert, oriented Psych: nl mood/affect Head: normocephalic Eyes: nl conjunctiva Neck: non-tender, supple, No jvd Respiratory: diminished breath sounds, wheezing Cardiovascular: other (regular rate) Gastrointestinal: other (protuberant,), soft, less distended Musculoskeletal: other (right AKA), swelling (left lower extremity) Neurological: CREATIVE DESIGNER II-XII intact, nl mental status, nl speech Skin: No rash or lesions Results Result Diagram: 09/02/16 0716 09/02/16 1357 Results 24 hrs Laboratory Tests Test 09/01/16 17:14 09/01/16 21:44 09/02/16 03:12 09/02/16 07:16 Bedside Glucose 165 180 140 White Blood Count 9.7 # Red Blood Count 3.95 L Hemoglobin 9.5 L Hematocrit 32.7 L Mean Corpuscular Volume 82.8 Mean Corpuscular Hemoglobin 24.1 L Mean Corpuscular Hemoglobin Concent 29.1 L Red Cell Distribution Width 18.3 H Platelet Count 161 Mean Platelet Volume 10.0 Neutrophils % 73.9 Lymphocytes % 12.0 L Monocytes % 9.6 Eosinophils % 3.8 Basophils % 0.4 Nucleated Red Blood Cells % 0.0 Neutrophils # 7.1 Lymphocytes # 1.2 Monocytes # 0.9 Eosinophils # 0.4 Basophils # 0.0 Nucleated Red Blood Cells # 0.0 Sodium Level 138 Potassium Level 5.4 H Chloride Level 108 Carbon Dioxide Level 24 Anion Gap 11 # Blood Urea Nitrogen 48 H Creatinine 2.20 H Glucose Level 105 Calcium Level 8.5 Phosphorus Level 4.6 Magnesium Level 2.1 Test 09/02/16 07:51 09/02/16 11:56 09/02/16 13:57 Bedside Glucose 102 143 Potassium Level 5.2 H Medications Medications Current Medications Heparin Sodium (Porcine) (Heparin (5000 Units/0.5 ml)) 5,000 unit BID SC Last administered on 09/02/16 11:02; Admin Dose 5,000 UNIT; Start 09/01/16 at 09:00 Acetaminophen (Tylenol Tab) 650 mg Q6H PRN PO PAIN AND OR ELEVATED TEMP; Start 09/01/16 at 05:00 Insulin Glargine (Lantus) 12 unit DAILY@20 SC Last administered on 09/01/16 21 :48; Admin Dose 12 UNIT; Start 09/01/16 at 20:00 Diagnostic Test (Pha) (Accu-Chek) 1 ea 02 XX Last administered on 09/02/16 02: 00; Admin Dose 1 EA; Start 09/02/16 at 02:00 Ondansetron HCl (Zofran Inj) 4 mg Q6H PRN IV NAUSEA AND/OR VOMITING; Start at 05:00 Miscellaneous Information 1 ea NOTE XX ; Start 09/01/16 at 05:00 Glucose (Glutose) 15 gm Q15M PRN PO DECREASED GLUCOSE; Start 09/01/16 at 05:00 Glucose (Glutose) 22.5 gm Q15M PRN PO DECREASED GLUCOSE; Start 09/01/16 at 05: 00 Dextrose (D50w Syringe) 25 ml Q15M PRN IV DECREASED GLUCOSE; Start 09/01/16 at 05:00 Dextrose (D50w Syringe) 50 ml Q15M PRN IV DECREASED GLUCOSE; Start 09/01/16 at 05:00 Glucagon (Glucagen) 1 mg Q15M PRN IM DECREASED GLUCOSE; Start 09/01/16 at 05:00 Glucose (Glutose) 15 gm Q15M PRN BUCCAL DECREASED GLUCOSE; Start 09/01/16 at 05 :00 Aspirin (Halfprin) 81 mg DAILY PO Last administered on 09/02/16 11:00; Admin Dose 81 MG; Start 09/01/16 at 09:00 Metoprolol Succinate (Toprol Xl) 25 mg DAILY PO Last administered on 09/02/16 11:01; Admin Dose 25 MG; Start 09/01/16 at 09:00 Hydroxyzine HCl (Atarax) 25 mg Q6H PRN GTB ITCHING; Start 09/01/16 at 08:30 Docusate Sodium (Colace) 100 mg DAILY PO Last administered on 09/02/16 11:01; Admin Dose 100 MG; Start 09/01/16 at 09:00 URSULA COOK Sep 02, 2016 15:59
[2016-09-02] MEDS: INSULIN GLARGINE [LANtus] 3 ML PEN SC SCH (21:45)
[2016-09-03] VITALS (12 sets, daily range): BP systolic 102–131; BP diastolic 53–72; PULSE 68–84; RESP 18–21
[2016-09-03] MEDS: ACCU-CHEK XX SCH (02:00)
[2016-09-03] MEDS: FUROSEMIDE 40 MG INJ IV SCH ×2 (05:42→18:05)
--- NOTE | 2016-09-03 07:02 | CONS ---
DATE OF ADMISSION: 08/31/2016 DATE OF CONSULTATION: 09/02/2016 TYPE OF CONSULTATION: Cardiology. REASON FOR CONSULTATION: Cardiomyopathy with severely depressed left ventricular ejection fraction, congestive heart failure exacerbation. REQUESTING PHYSICIAN: Dawson Sethi MD, from the hospital service, and Ursula Schroeder NP from the hospitalist service. HISTORY OF PRESENT ILLNESS: Mr. Phan is a 65-year-old male with history of diabetes mellitus, congestive heart failure, right above knee amputation, possible prior [place] in [facility] a few years prior, who initially presented with complaints of dyspnea on exertion with very minimal activity, orthopnea, but denies chest pain, syncope, dizziness, or palpitations. Upon arrival initially in the emergency department, temperature of 98.3, blood pressure 130/60, pulse 85, respiratory rate 33, saturating 98% on 2 liters. Patient's labs showed white count of 10.7, hemoglobin 10.6, platelet count 176. Sodium 140, potassium 5.0, creatinine 2.0, BUN of 43. Troponin negative. INR 1.25. UA borderline. The patient underwent a chest x-ray revealing cardiomegaly with mild interstitial CHF and small bilateral pleural effusions, right greater than left. The patient underwent a renal ultrasound revealing moderate bilateral cortical thinning and changes suggestive of medical renal disease, no hydronephrosis, moderate ascites and a pelvic ultrasound revealing a postvoid residual of 100 mL and ascites. The patient's electrocardiogram revealed normal sinus rhythm at a rate of 85 with left bundle branch block, secondary repolarization abnormalities. The patient subsequently was admitted to the hospital and underwent a 2D echo interpreted by myself revealing a severely depressed left ventricular ejection fraction of approximately 15% to 20% with global hypokinesis and associated mild tricuspid and mitral regurgitation. Additionally, the patient has been consulted by nephrology service for renal failure. PAST MEDICAL HISTORY: As above in HPI. MEDICATIONS CURRENTLY IN HOSPITAL: 1. Lasix 80 mg IV b.i.d. 2. Lantus. 3. Heparin 5000 subq b.i.d. 4. Aspirin 81 mg daily. 5. Toprol-XL 25 mg daily. 6. Colace p.r.n. 7. Hydroxyzine p.r.n. 8. Insulin sliding scale. 9. Zofran p.r.n. 11. Sublingual nitroglycerin p.r.n. ALLERGIES: NO KNOWN DRUG ALLERGIES. SOCIAL HISTORY: Very remote tobacco, quit greater than 15 years. No ETOH or illicit drug use. FAMILY HISTORY: No history of cardiac or early CAD. REVIEW OF SYSTEMS: As above in HPI. CONSTITUTIONAL: No fevers, chills. PULMONARY: Shortness of breath. CARDIOVASCULAR: Congestive heart failure, cardiomyopathy. GASTROINTESTINAL: No vomiting. GENITOURINARY: No hematuria. MUSCULOSKELETAL: Degenerative joint disease. PSYCHIATRIC: No documented psych history. NEUROLOGIC: No documented history of CVA. PHYSICAL EXAMINATION VITAL SIGNS: Temperature 98.4, blood pressure 130/60, pulse 76, respiratory rate 20, saturating 97%. GENERAL: The patient is alert, awake and complaining of shortness of breath. NECK: JVP approximately 9 to 10 cm water. CHEST: Fair movement throughout with bibasilar crackles. HEART: Regular rate and rhythm. Normal S1, S2, a I/ systolic murmur, laterally displaced PMI. ABDOMEN: Positive bowel sounds, soft. EXTREMITIES: Mildly distended. EXTREMITIES: Status post right above knee amputation with left lower extremity with 1+ edema and chronic venous stasis changes and difficult to palpate distal pulses at the dorsalis pedis, posterior tibial. LABORATORY DATA: As above in HPI with most recent from today, sodium 138, potassium 5.4, creatinine 2.2, BUN of 48. White blood cell count 9.7, hemoglobin 9.5, platelet count of 161. Troponin negative x3. LDL of 79, HDL of 29. TSH of 2.6. IMAGING STUDIES: As above in HPI. No further imaging studies for my review at this time. ECG: As above in HPI. No further electrocardiograms for my review at this time. IMPRESSION: 1. Congestive heart failure, systolic, acute on chronic, likely. 2. Cardiomyopathy with severely depressed left ventricular ejection fraction. 3. Abnormal electrocardiogram with left bundle branch block pattern; negative troponins greater than 3. 4. Hypertension, under reasonable control. 5. Peripheral vascular disease, status post right above the knee amputation. 6. Renal failure. 7. Hyperkalemia. 8. Anemia. RECOMMENDATIONS: 1. At this time, would maintain patient on telemetry monitoring to follow rhythm and rate closely. 2. Would continue the patient's newly started Lasix diuresis as well as aspirin for prophylaxis against cardiovascular events. 3. Continue the patient's current Toprol-XL and we will initiate patient on hydralazine afterload reduction in the setting of renal failure in lieu of JACQUELINE inhibitor or ARB that has been held at this time, given renal failure and hyperkalemia. 4. Follow for recurrent episodes of chest pain and we will give p.r.n. sublingual nitroglycerin for this. 5. We will continue to check serial EKGs, although they may be unrevealing as they may continue to just reveal left bundle branch block. 6. When patient's vital signs have improved, we will likely progress to Lexiscan Cardiolite stress test and/or left heart catheterization. Thank you for allowing me to take part in the care of this patient. I will continue to follow along very closely with you. Further recommendations will be made as the patient progresses through his inpatient hospital clinical course. Dictated By: ELANA ROTHMAN/IMTIAZ Conf#: [id number] DID#: [id number] CC: URSULA SCHROEDER NP; DAWSON SETHI MD;*EndCC* MTDD
[2016-09-03] MEDS: INSULIN ASPART [NOVOLOG] 3 ML PEN SC SCH ×4 (08:00→21:00)
[2016-09-03 08:16] LABS: ADD SCAN DIFF NO
[2016-09-03 08:18] LABS: BASOPHILS % 0.5 % (0.0-2.0); EOSINOPHILS # 0.4 10^3/ul (0.0-0.5); EOSINOPHILS % 4.4 % (0.0-7.0); HEMATOCRIT 32.2 % (42.0-52.0); HEMOGLOBIN 9.5 g/dl (14.0-18.0); LYMPHOCYTES # 0.9 10^3/ul (0.8-2.9); LYMPHOCYTES % 10.8 % (15.0-51.0); MEAN CORPUSCULAR HEMOGLOBIN 24.2 pg (29.0-33.0); MEAN CORPUSCULAR HGB CONC 29.5 g/dl (32.0-37.0); MEAN CORPUSCULAR VOLUME 81.9 fl (82.0-101.0); MEAN PLATELET VOLUME 10.1 fl (7.4-10.4); MONOCYTE # 0.8 10^3/ul (0.3-0.9); MONOCYTES % 9.2 % (0.0-11.0); NEUTROPHIL # 6.3 10^3/ul (1.6-7.5); NEUTROPHILS % 74.7 % (39.0-77.0); PLATELET COUNT 182 10^3/UL (140-415); RED BLOOD COUNT 3.93 10^6/ul (4.70-6.10); RED CELL DISTRIBUTION WIDTH 17.8 % (11.5-14.5); WHITE BLOOD COUNT 8.5 10^3/ul (4.8-10.8)
[2016-09-03 08:36] LABS: CHOL/HDL RATIO 5.2 RATIO
[2016-09-03 08:38] LABS: POTASSIUM 4.7 mmol/L (3.5-5.1)
[2016-09-03 08:41] LABS: CREATININE 2.5 mg/dl (0.61-1.24)
[2016-09-03 08:42] LABS: CALCIUM 8.6 mg/dl (8.4-10.2); MAGNESIUM 2.1 mg/dl (1.7-2.5); PHOSPHORUS 4.7 mg/dl (2.5-4.9)
--- NOTE | 2016-09-03 09:19 | PN ---
Date/Time of Note Date/Time of Note DATE: 09/03/16 TIME: 09:16 Assessment/Plan VTE Prophylaxis VTE Prophylaxis Intervention: heparin Lines/Catheters IV [facility] Saline Lock Urinary Cath still in place: No Assessment/Plan Chief Complaint/Hosp Course Assessment and plan 1. Dyspnea secondary to CHF exacerbation and renal insufficiency. Medications to be renally dosed. Diuretic per nephrology recommendations. Continue on O2 and titrate down as tolerated. Bronchodilators as needed. Continue with cardiology recommendations. Follow up on chest x-ray 2. CHF exacerbation. EF: 15-20%. cont optimization with cardiovascular medications. Possible stress test/catheterization per anesthetic assistant once VS more stable 3. Acute on likely chronic kidney disease. meds renally dosed. slightly worse today 4. History of CAD. Continue on antiplatelet therapy 5. History of hypertension. On antihypertensives and adjust as needed 6. Diabetes.. Continue insulin regimen and adjust as needed Disposition and plan: f/u CXR. monitor renal panel. cont inhouse monitoring Discussed plan of care with Dr. Rasmussen Problems: Subjective 24 Hr Interval Summary Free Text/Dictation Reports still orthopnea Exam/Review of Systems Vital Signs Vitals Vital Signs Date Time Temp Pulse Resp B/P Pulse Ox O2 Delivery O2 Flow Rate FiO2 09/03/16 08:04 74 09/03/16 07:33 98.2 21 125/60 98 09/03/16 03:39 2.0 09/02/16 08:00 Nasal Cannula 09/02/16 03:12 21 Intake and Output 09/02/16 09/02/16 09/03/16 15:00 23:00 07:00 Intake Total 600 ml Output Total 700 ml Balance -100 ml Exam Constitutional: alert, oriented Psych: nl mood/affect Head: normocephalic Neck: non-tender, supple Respiratory: diminished breath sounds, wheezing Cardiovascular: regular rate and rhythm Gastrointestinal: non-tender, other (protuberant), soft Musculoskeletal: other (right AKA) Neurological: RECRUITING MANAGER II-XII intact, nl mental status, nl speech Skin: nl turgor Results Result Diagram: 09/03/16 0725 09/03/16 0725 Results 24 hrs Laboratory Tests Test 09/02/16 11:56 09/02/16 13:57 09/02/16 17:19 09/02/16 21:36 Bedside Glucose 143 127 126 Potassium Level 5.2 H Test 09/03/16 07:25 09/03/16 08:41 White Blood Count 8.5 Red Blood Count 3.93 L Hemoglobin 9.5 L Hematocrit 32.2 L Mean Corpuscular Volume 81.9 L Mean Corpuscular Hemoglobin 24.2 L Mean Corpuscular Hemoglobin Concent 29.5 L Red Cell Distribution Width 17.8 H Platelet Count 182 Mean Platelet Volume 10.1 Neutrophils % 74.7 Lymphocytes % 10.8 L Monocytes % 9.2 Eosinophils % 4.4 Basophils % 0.5 Nucleated Red Blood Cells % 0.0 Neutrophils # 6.3 Lymphocytes # 0.9 Monocytes # 0.8 Eosinophils # 0.4 Basophils # 0.0 Nucleated Red Blood Cells # 0.0 Sodium Level 141 Potassium Level 4.7 Chloride Level 105 Carbon Dioxide Level 25 Anion Gap 16 Blood Urea Nitrogen 55 H Creatinine 2.50 H Glucose Level 103 Calcium Level 8.6 Phosphorus Level 4.7 Magnesium Level 2.1 Triglycerides Level 99 Cholesterol Level 141 LDL Cholesterol, Calculated 94 HDL Cholesterol 27 L Cholesterol/HDL Ratio 5.2 Bedside Glucose 94 Medications Medications Current Medications Heparin Sodium (Porcine) (Heparin (5000 Units/0.5 ml)) 5,000 unit BID SC Last administered on 09/02/16 21:45; Admin Dose 5,000 UNIT; Start 09/01/16 at 09:00 Acetaminophen (Tylenol Tab) 650 mg Q6H PRN PO PAIN AND OR ELEVATED TEMP; Start 09/01/16 at 05:00 Insulin Glargine (Lantus) 12 unit DAILY@20 SC Last administered on 09/02/16 21 :45; Admin Dose 12 UNIT; Start 09/01/16 at 20:00 Diagnostic Test (Pha) (Accu-Chek) 1 ea 02 XX Last administered on 09/02/16 02: 00; Admin Dose 1 EA; Start 09/02/16 at 02:00 Ondansetron HCl (Zofran Inj) 4 mg Q6H PRN IV NAUSEA AND/OR VOMITING; Start at 05:00 Miscellaneous Information 1 ea NOTE XX ; Start 09/01/16 at 05:00 Glucose (Glutose) 15 gm Q15M PRN PO DECREASED GLUCOSE; Start 09/01/16 at 05:00 Glucose (Glutose) 22.5 gm Q15M PRN PO DECREASED GLUCOSE; Start 09/01/16 at 05: 00 Dextrose (D50w Syringe) 25 ml Q15M PRN IV DECREASED GLUCOSE; Start 09/01/16 at 05:00 Dextrose (D50w Syringe) 50 ml Q15M PRN IV DECREASED GLUCOSE; Start 09/01/16 at 05:00 Glucagon (Glucagen) 1 mg Q15M PRN IM DECREASED GLUCOSE; Start 09/01/16 at 05:00 Glucose (Glutose) 15 gm Q15M PRN BUCCAL DECREASED GLUCOSE; Start 09/01/16 at 05 :00 Aspirin (Halfprin) 81 mg DAILY PO Last administered on 09/02/16 11:00; Admin Dose 81 MG; Start 09/01/16 at 09:00 Metoprolol Succinate (Toprol Xl) 25 mg DAILY PO Last administered on 09/02/16 11:01; Admin Dose 25 MG; Start 09/01/16 at 09:00 Hydroxyzine HCl (Atarax) 25 mg Q6H PRN GTB ITCHING; Start 09/01/16 at 08:30 Docusate Sodium (Colace) 100 mg DAILY PO Last administered on 09/02/16 11:01; Admin Dose 100 MG; Start 09/01/16 at 09:00 Hydralazine HCl (Apresoline) 10 mg Q8 PO Last administered on 09/02/16 21:43; Admin Dose 10 MG; Start 09/02/16 at 22:00 URSULA COOK Sep 03, 2016 09:19
[2016-09-03] MEDS: METOPROLOL (XL) 25 MG TAB PO SCH ×2 (09:26→21:17)
[2016-09-03] MEDS: DOCUSATE SODIUM 100 MG CAP PO SCH (09:26)
[2016-09-03] MEDS: ASPIRIN (EC) 81 MG TAB PO SCH (09:26)
[2016-09-03] MEDS: HEPARIN 5,000 UNIT/0.5 ML VIAL SC SCH ×2 (09:37→21:20)
--- NOTE | 2016-09-03 13:42 | CONS ---
Date/Time of Note Date/Time of Note DATE: 09/03/16 TIME: 13:39 Assessment/Plan Assessment/Plan Additional Assessment/Plan * Dyspnea secondary to CHF exacerbation : cont to improve slowly with diuretics. cr slightly worse again today and will reduce lasix to 40 mg iv bid and follow * CHF exacerbation. EF: 15-20%. cont optimization with cardiovascular medications. dc hydralaizine given hypotesnion. target bp <140/90 to help renal perfusion * Acute on likely chronic kidney disease: cr worse, suspect due to hypotension and diuretics. reduce dose and monitor am labs * History of CAD. Continue on antiplatelet therapy/ b blockers * History of hypertension. On antihypertensives/ dc hydralaizine and cont toprol for now * Diabetes.. Continue insulin regimen and adjust as needed Consultation Date/Type/Reason Admit Date/Time Aug 31, 2016 at 19:32 Initial Consult Date 24 HR Interval Summary Free Text/Dictation feels a little better. at bedside. no sob/ cp Exam/Review of Systems Vital Signs Vitals Vital Signs Date Time Temp Pulse Resp B/P Pulse Ox O2 Delivery O2 Flow Rate FiO2 09/03/16 12:06 68 09/03/16 11:33 97.9 20 106/55 99 09/03/16 08:00 Nasal Cannula 2.0 09/02/16 03:12 21 Intake and Output 09/02/16 09/02/16 09/03/16 15:00 23:00 07:00 Intake Total 600 ml Output Total 700 ml Balance -100 ml Exam Constitutional: alert Head: atraumatic, normocephalic Neck: supple Respiratory: diminished breath sounds Cardiovascular: edema, nl pulses, regular rate and rhythm Gastrointestinal: non-tender (s/p amputation), soft Results Result Diagram: 09/03/16 0725 09/03/16 0725 Results 24 hrs Laboratory Tests Test 09/02/16 13:57 09/02/16 17:19 09/02/16 21:36 09/03/16 07:25 Potassium Level 5.2 H 4.7 Bedside Glucose 127 126 White Blood Count 8.5 Red Blood Count 3.93 L Hemoglobin 9.5 L Hematocrit 32.2 L Mean Corpuscular Volume 81.9 L Mean Corpuscular Hemoglobin 24.2 L Mean Corpuscular Hemoglobin Concent 29.5 L Red Cell Distribution Width 17.8 H Platelet Count 182 Mean Platelet Volume 10.1 Neutrophils % 74.7 Lymphocytes % 10.8 L Monocytes % 9.2 Eosinophils % 4.4 Basophils % 0.5 Nucleated Red Blood Cells % 0.0 Neutrophils # 6.3 Lymphocytes # 0.9 Monocytes # 0.8 Eosinophils # 0.4 Basophils # 0.0 Nucleated Red Blood Cells # 0.0 Sodium Level 141 Chloride Level 105 Carbon Dioxide Level 25 Anion Gap 16 Blood Urea Nitrogen 55 H Creatinine 2.50 H Glucose Level 103 Calcium Level 8.6 Phosphorus Level 4.7 Magnesium Level 2.1 Triglycerides Level 99 Cholesterol Level 141 LDL Cholesterol, Calculated 94 HDL Cholesterol 27 L Cholesterol/HDL Ratio 5.2 Test 09/03/16 08:41 09/03/16 11:59 Bedside Glucose 94 112 Medications Medications Current Medications Heparin Sodium (Porcine) (Heparin (5000 Units/0.5 ml)) 5,000 unit BID SC Last administered on 09/03/16 09:37; Admin Dose 5,000 UNIT; Start 09/01/16 at 09:00 Acetaminophen (Tylenol Tab) 650 mg Q6H PRN PO PAIN AND OR ELEVATED TEMP; Start 09/01/16 at 05:00 Insulin Glargine (Lantus) 12 unit DAILY@20 SC Last administered on 09/02/16 21 :45; Admin Dose 12 UNIT; Start 09/01/16 at 20:00 Diagnostic Test (Pha) (Accu-Chek) 1 ea 02 XX Last administered on 09/02/16 02: 00; Admin Dose 1 EA; Start 09/02/16 at 02:00 Ondansetron HCl (Zofran Inj) 4 mg Q6H PRN IV NAUSEA AND/OR VOMITING; Start at 05:00 Miscellaneous Information 1 ea NOTE XX ; Start 09/01/16 at 05:00 Glucose (Glutose) 15 gm Q15M PRN PO DECREASED GLUCOSE; Start 09/01/16 at 05:00 Glucose (Glutose) 22.5 gm Q15M PRN PO DECREASED GLUCOSE; Start 09/01/16 at 05: 00 Dextrose (D50w Syringe) 25 ml Q15M PRN IV DECREASED GLUCOSE; Start 09/01/16 at 05:00 Dextrose (D50w Syringe) 50 ml Q15M PRN IV DECREASED GLUCOSE; Start 09/01/16 at 05:00 Glucagon (Glucagen) 1 mg Q15M PRN IM DECREASED GLUCOSE; Start 09/01/16 at 05:00 Glucose (Glutose) 15 gm Q15M PRN BUCCAL DECREASED GLUCOSE; Start 09/01/16 at 05 :00 Aspirin (Halfprin) 81 mg DAILY PO Last administered on 09/03/16 09:26; Admin Dose 81 MG; Start 09/01/16 at 09:00 Metoprolol Succinate (Toprol Xl) 25 mg DAILY PO Last administered on 09/03/16 09:26; Admin Dose 25 MG; Start 09/01/16 at 09:00 Hydroxyzine HCl (Atarax) 25 mg Q6H PRN GTB ITCHING; Start 09/01/16 at 08:30 Docusate Sodium (Colace) 100 mg DAILY PO Last administered on 09/03/16 09:26; Admin Dose 100 MG; Start 09/01/16 at 09:00 Hydralazine HCl (Apresoline) 10 mg Q8 PO Last administered on 09/02/16 21:43; Admin Dose 10 MG; Start 09/02/16 at 22:00 ELVIS PACHECO MD Sep 03, 2016 13:42
--- NOTE | 2016-09-03 16:16 | CONS ---
Date/Time of Note Date/Time of Note DATE: 09/03/16 TIME: 16:10 Assessment/Plan Assessment/Plan Chief Complaint/Hosp Course IMPRESSION: 1. Congestive heart failure, systolic, acute on chronic, likely. 2. Cardiomyopathy with severely depressed left ventricular ejection fraction.15 -20% by echo this admit 3. Abnormal electrocardiogram with left bundle branch block pattern; negative troponins greater than 3. 4. Hypertension, under reasonable control. 5. Peripheral vascular disease, status post right above the knee amputation. 6. Renal failure. 7. Hyperkalemia. 8. Anemia. 9.Dyslipidemia-LDL 93 HDL 27 Recc: -Tele -serial ecg's -Continue toprol XL -Resume low dose hydralazine afterload reduction as tolerated to improve cardiac output in lieu of ACEI given renal failure at this time -Continue lasix diuresis and follow dandy tender clsoely and volume status Problems: Consultation Date/Type/Reason Admit Date/Time Aug 31, 2016 at 19:32 Initial Consult Date 09/02/2016 Type of Consultation: Cardiology Reason for Consultation CHF/cardiomyopathy Referring Provider: LEE RAHMAN Exam/Review of Systems Vital Signs Vitals Vital Signs Date Time Temp Pulse Resp B/P Pulse Ox O2 Delivery O2 Flow Rate FiO2 09/03/16 15:25 98.1 76 20 125/70 99 09/03/16 08:00 Nasal Cannula 2.0 09/02/16 03:12 21 Intake and Output 09/02/16 09/02/16 09/03/16 15:00 23:00 07:00 Intake Total 600 ml Output Total 700 ml Balance -100 ml Exam Review of Systems: CONSTITUTIONAL: No fevers, chills. PULMONARY: No sob CARDIOVASCULAR: No chest pain/palpitations GASTROINTESTINAL: No nausea/vomiting. GENITOURINARY: No hematuria/dysuria. MUSCULOSKELETAL: No myagias/arthalgias. PSYCHIATRIC: The patient denies depression. NEUROLOGIC: No weakness Constitutional: alert, oriented Psych: no complaints Head: normocephalic ENMT: mucosa pink and moist Neck: jvd (9-10 cm water), supple Respiratory: diminished breath sounds (at bases/B) Cardiovascular: regular rate and rhythm Gastrointestinal: non-tender, soft Musculoskeletal: muscle tone (normal) Extremities: pitting pedal edema (LLE, RLE s/p amputation) Neurological: lethargic Results Result Diagram: 09/03/16 0725 09/03/16 0725 Results 24 hrs Laboratory Tests Test 09/02/16 17:19 09/02/16 21:36 09/03/16 07:25 09/03/16 08:41 Bedside Glucose 127 126 94 White Blood Count 8.5 Red Blood Count 3.93 L Hemoglobin 9.5 L Hematocrit 32.2 L Mean Corpuscular Volume 81.9 L Mean Corpuscular Hemoglobin 24.2 L Mean Corpuscular Hemoglobin Concent 29.5 L Red Cell Distribution Width 17.8 H Platelet Count 182 Mean Platelet Volume 10.1 Neutrophils % 74.7 Lymphocytes % 10.8 L Monocytes % 9.2 Eosinophils % 4.4 Basophils % 0.5 Nucleated Red Blood Cells % 0.0 Neutrophils # 6.3 Lymphocytes # 0.9 Monocytes # 0.8 Eosinophils # 0.4 Basophils # 0.0 Nucleated Red Blood Cells # 0.0 Sodium Level 141 Potassium Level 4.7 Chloride Level 105 Carbon Dioxide Level 25 Anion Gap 16 Blood Urea Nitrogen 55 H Creatinine 2.50 H Glucose Level 103 Calcium Level 8.6 Phosphorus Level 4.7 Magnesium Level 2.1 Triglycerides Level 99 Cholesterol Level 141 LDL Cholesterol, Calculated 94 HDL Cholesterol 27 L Cholesterol/HDL Ratio 5.2 Test 09/03/16 11:59 Bedside Glucose 112 Medications Medications Current Medications Heparin Sodium (Porcine) (Heparin (5000 Units/0.5 ml)) 5,000 unit BID SC Last administered on 09/03/16 09:37; Admin Dose 5,000 UNIT; Start 09/01/16 at 09:00 Acetaminophen (Tylenol Tab) 650 mg Q6H PRN PO PAIN AND OR ELEVATED TEMP; Start 09/01/16 at 05:00 Insulin Glargine (Lantus) 12 unit DAILY@20 SC Last administered on 09/02/16 21 :45; Admin Dose 12 UNIT; Start 09/01/16 at 20:00 Diagnostic Test (Pha) (Accu-Chek) 1 ea 02 XX Last administered on 09/02/16 02: 00; Admin Dose 1 EA; Start 09/02/16 at 02:00 Ondansetron HCl (Zofran Inj) 4 mg Q6H PRN IV NAUSEA AND/OR VOMITING; Start at 05:00 Miscellaneous Information 1 ea NOTE XX ; Start 09/01/16 at 05:00 Glucose (Glutose) 15 gm Q15M PRN PO DECREASED GLUCOSE; Start 09/01/16 at 05:00 Glucose (Glutose) 22.5 gm Q15M PRN PO DECREASED GLUCOSE; Start 09/01/16 at 05: 00 Dextrose (D50w Syringe) 25 ml Q15M PRN IV DECREASED GLUCOSE; Start 09/01/16 at 05:00 Dextrose (D50w Syringe) 50 ml Q15M PRN IV DECREASED GLUCOSE; Start 09/01/16 at 05:00 Glucagon (Glucagen) 1 mg Q15M PRN IM DECREASED GLUCOSE; Start 09/01/16 at 05:00 Glucose (Glutose) 15 gm Q15M PRN BUCCAL DECREASED GLUCOSE; Start 09/01/16 at 05 :00 Aspirin (Halfprin) 81 mg DAILY PO Last administered on 09/03/16 09:26; Admin Dose 81 MG; Start 09/01/16 at 09:00 Metoprolol Succinate (Toprol Xl) 25 mg DAILY PO Last administered on 09/03/16 09:26; Admin Dose 25 MG; Start 09/01/16 at 09:00 Hydroxyzine HCl (Atarax) 25 mg Q6H PRN GTB ITCHING; Start 09/01/16 at 08:30 Docusate Sodium (Colace) 100 mg DAILY PO Last administered on 09/03/16 09:26; Admin Dose 100 MG; Start 09/01/16 at 09:00 ELANA LARSON Sep 03, 2016 16:16
--- NOTE | 2016-09-03 19:26 | RADRPT ---
PROCEDURE: XR Chest. CLINICAL INDICATION: Shortness of breath. TECHNIQUE: Single frontal view. COMPARISON: 08/31/2016. FINDINGS: There is interstitial disease bilaterally consistent with pulmonary edema, slightly worse than seen previously. There is mild atelectasis at the lung bases. The lungs are otherwise clear. The heart is enlarged. There are small bilateral pleural effusions. There is no pneumothorax. IMPRESSION: 1. Slightly worse appearance of the lungs. 2. Small bilateral pleural effusions. 3. Cardiomegaly. RPTAT: QQ .Bernardo Terrell MD, MD Date Time Electronically viewed and signed by .Bernardo Terrell MD, MD on 09/03/2016 19:26 .R/
[2016-09-03] MEDS: LEVALBUTEROL (NEB) 0.63 MG/3 ML AMP HHN PRN (20:15)
[2016-09-03] MEDS: INSULIN GLARGINE [LANtus] 3 ML PEN SC SCH (21:20)
[2016-09-04] VITALS (11 sets, daily range): BP systolic 113–130; BP diastolic 61–78; PULSE 68–84; RESP 17–20
[2016-09-04] MEDS: ACCU-CHEK XX SCH (01:51)
[2016-09-04] MEDS: FUROSEMIDE 40 MG INJ IV SCH ×2 (05:38→17:46)
[2016-09-04 07:43] LABS: ADD SCAN DIFF NO
[2016-09-04 07:48] LABS: BASOPHILS % 0.4 % (0.0-2.0); EOSINOPHILS # 0.4 10^3/ul (0.0-0.5); EOSINOPHILS % 4.4 % (0.0-7.0); HEMATOCRIT 29.7 % (42.0-52.0); HEMOGLOBIN 8.8 g/dl (14.0-18.0); LYMPHOCYTES % 12.6 % (15.0-51.0); MEAN CORPUSCULAR HEMOGLOBIN 24.2 pg (29.0-33.0); MEAN CORPUSCULAR HGB CONC 29.6 g/dl (32.0-37.0); MEAN CORPUSCULAR VOLUME 81.8 fl (82.0-101.0); MEAN PLATELET VOLUME 10.3 fl (7.4-10.4); MONOCYTE # 0.8 10^3/ul (0.3-0.9); NEUTROPHIL # 5.9 10^3/ul (1.6-7.5); NEUTROPHILS % 72.1 % (39.0-77.0); PLATELET COUNT 177 10^3/UL (140-415); RED BLOOD COUNT 3.63 10^6/ul (4.70-6.10); RED CELL DISTRIBUTION WIDTH 17.6 % (11.5-14.5); WHITE BLOOD COUNT 8.2 10^3/ul (4.8-10.8)
[2016-09-04] MEDS: INSULIN ASPART [NOVOLOG] 3 ML PEN SC SCH ×4 (08:00→20:23)
[2016-09-04 08:06] LABS: MAGNESIUM 1.9 mg/dl (1.7-2.5); PHOSPHORUS 4.7 mg/dl (2.5-4.9)
[2016-09-04] MEDS: DOCUSATE SODIUM 100 MG CAP PO SCH (09:23)
[2016-09-04] MEDS: ASPIRIN (EC) 81 MG TAB PO SCH (09:23)
[2016-09-04] MEDS: METOPROLOL (XL) 25 MG TAB PO SCH ×2 (09:24→20:30)
[2016-09-04] MEDS: HEPARIN 5,000 UNIT/0.5 ML VIAL SC SCH ×2 (09:33→20:34)
[2016-09-04 10:07] LABS: ADD SCAN DIFF NO
[2016-09-04 10:09] LABS: BASOPHILS % 0.5 % (0.0-2.0); EOSINOPHILS # 0.4 10^3/ul (0.0-0.5); EOSINOPHILS % 4.5 % (0.0-7.0); HEMATOCRIT 30.7 % (42.0-52.0); HEMOGLOBIN 9.3 g/dl (14.0-18.0); LYMPHOCYTES % 11.3 % (15.0-51.0); MEAN CORPUSCULAR HEMOGLOBIN 24.7 pg (29.0-33.0); MEAN CORPUSCULAR HGB CONC 30.3 g/dl (32.0-37.0); MEAN CORPUSCULAR VOLUME 81.6 fl (82.0-101.0); MEAN PLATELET VOLUME 10.1 fl (7.4-10.4); MONOCYTE # 0.9 10^3/ul (0.3-0.9); MONOCYTES % 10.9 % (0.0-11.0); NEUTROPHIL # 6.1 10^3/ul (1.6-7.5); NEUTROPHILS % 72.3 % (39.0-77.0); PLATELET COUNT 188 10^3/UL (140-415); RED BLOOD COUNT 3.76 10^6/ul (4.70-6.10); RED CELL DISTRIBUTION WIDTH 17.6 % (11.5-14.5); WHITE BLOOD COUNT 8.4 10^3/ul (4.8-10.8)
--- NOTE | 2016-09-04 10:10 | PN ---
Date/Time of Note Date/Time of Note DATE: 09/04/16 TIME: 10:08 Assessment/Plan VTE Prophylaxis VTE Prophylaxis Intervention: heparin Lines/Catheters IV [facility] Saline Lock Urinary Cath still in place: No Assessment/Plan Chief Complaint/Hosp Course Assessment and plan 1. Dyspnea secondary to CHF exacerbation and renal insufficiency. Medications to be renally dosed. Continue diuresis. Continue on O2 and titrate down as tolerated. Bronchodilators as needed. Noted with slightly worse x-ray. 2. CHF exacerbation. EF: 15-20%. cont optimization with cardiovascular medications. 3. Acute on likely chronic kidney disease. meds renally dosed. Renal panel pending 4. History of CAD. Continue on antiplatelet therapy 5. History of hypertension. On antihypertensives and adjust as needed 6. Diabetes.. Continue insulin regimen and adjust as needed Disposition and plan: Still orthopneic. Continue diuresis. Await for clinical improvement. Discussed plan of care with Dr. Rasmussen Problems: Subjective 24 Hr Interval Summary Free Text/Dictation Still has orthopnea. No reports of cough at this time of chest pain Exam/Review of Systems Vital Signs Vitals Vital Signs Date Time Temp Pulse Resp B/P Pulse Ox O2 Delivery O2 Flow Rate FiO2 09/04/16 08:10 Nasal Cannula 2.0 09/04/16 08:04 68 09/04/16 07:50 97.6 19 118/61 97 09/02/16 03:12 21 Intake and Output 09/03/16 09/03/16 09/04/16 14:59 22:59 06:59 Intake Total 900 ml 240 ml Output Total 700 ml 925 ml Balance 200 ml -685 ml Exam Constitutional: alert, oriented Psych: nl mood/affect Head: normocephalic Neck: No jvd Respiratory: diminished breath sounds, wheezing Cardiovascular: other (regular rate) Gastrointestinal: non-tender, soft Musculoskeletal: other (right AKA) 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, nl mental status, nl speech Skin: other (scabs seen on abdomen) Results Result Diagram: 09/04/16 0612 09/03/16 0725 Results 24 hrs Laboratory Tests Test 09/03/16 11:59 09/03/16 17:19 09/03/16 20:55 09/04/16 06:12 Bedside Glucose 112 137 142 White Blood Count 8.2 Red Blood Count 3.63 L Hemoglobin 8.8 L Hematocrit 29.7 L Mean Corpuscular Volume 81.8 L Mean Corpuscular Hemoglobin 24.2 L Mean Corpuscular Hemoglobin Concent 29.6 L Red Cell Distribution Width 17.6 H Platelet Count 177 Mean Platelet Volume 10.3 Neutrophils % 72.1 Lymphocytes % 12.6 L Monocytes % 10.0 Eosinophils % 4.4 Basophils % 0.4 Nucleated Red Blood Cells % 0.0 Neutrophils # 5.9 Lymphocytes # 1.0 Monocytes # 0.8 Eosinophils # 0.4 Basophils # 0.0 Nucleated Red Blood Cells # 0.0 Phosphorus Level 4.7 Magnesium Level 1.9 Test 09/04/16 08:12 Bedside Glucose 70 Medications Medications Current Medications Heparin Sodium (Porcine) (Heparin (5000 Units/0.5 ml)) 5,000 unit BID SC Last administered on 09/04/16 09:33; Admin Dose 5,000 UNIT; Start 09/01/16 at 09:00 Acetaminophen (Tylenol Tab) 650 mg Q6H PRN PO PAIN AND OR ELEVATED TEMP; Start 09/01/16 at 05:00 Insulin Glargine (Lantus) 12 unit DAILY@20 SC Last administered on 09/03/16 21 :20; Admin Dose 12 UNIT; Start 09/01/16 at 20:00 Diagnostic Test (Pha) (Accu-Chek) 1 ea 02 XX Last administered on 09/02/16 02: 00; Admin Dose 1 EA; Start 09/02/16 at 02:00 Ondansetron HCl (Zofran Inj) 4 mg Q6H PRN IV NAUSEA AND/OR VOMITING; Start at 05:00 Miscellaneous Information 1 ea NOTE XX ; Start 09/01/16 at 05:00 Glucose (Glutose) 15 gm Q15M PRN PO DECREASED GLUCOSE; Start 09/01/16 at 05:00 Glucose (Glutose) 22.5 gm Q15M PRN PO DECREASED GLUCOSE; Start 09/01/16 at 05: 00 Dextrose (D50w Syringe) 25 ml Q15M PRN IV DECREASED GLUCOSE; Start 09/01/16 at 05:00 Dextrose (D50w Syringe) 50 ml Q15M PRN IV DECREASED GLUCOSE; Start 09/01/16 at 05:00 Glucagon (Glucagen) 1 mg Q15M PRN IM DECREASED GLUCOSE; Start 09/01/16 at 05:00 Glucose (Glutose) 15 gm Q15M PRN BUCCAL DECREASED GLUCOSE; Start 09/01/16 at 05 :00 Aspirin (Halfprin) 81 mg DAILY PO Last administered on 09/04/16 09:23; Admin Dose 81 MG; Start 09/01/16 at 09:00 Hydroxyzine HCl (Atarax) 25 mg Q6H PRN GTB ITCHING; Start 09/01/16 at 08:30 Docusate Sodium (Colace) 100 mg DAILY PO Last administered on 09/04/16 09:23; Admin Dose 100 MG; Start 09/01/16 at 09:00 Metoprolol Succinate (Toprol Xl) 12.5 mg BID PO Last administered on 09/04/16 09:24; Admin Dose 12.5 MG; Start 09/03/16 at 21:00 Hydralazine HCl (Apresoline) 10 mg Q8 PO Last administered on 09/03/16 21:18; Admin Dose 10 MG; Start 09/03/16 at 22:00 URSULA COOK Sep 04, 2016 10:10
[2016-09-04 10:22] LABS: POTASSIUM 5.2 mmol/L (3.5-5.1)
[2016-09-04 10:24] LABS: CREATININE 2.28 mg/dl (0.61-1.24)
[2016-09-04 10:25] LABS: CALCIUM 8.4 mg/dl (8.4-10.2)
--- NOTE | 2016-09-04 11:41 | CONS ---
Date/Time of Note Date/Time of Note DATE: 09/04/16 TIME: 11:38 Assessment/Plan Assessment/Plan Additional Assessment/Plan * Dyspnea secondary to CHF exacerbation : cont to improve slowly with diuretics. cr slightly better today awith adjustment in lasix dose. cont current meds and monitor cr/ k * CHF exacerbation. EF: 15-20%. cont optimization with cardiovascular medications. hydralaizine on hold for sbp<100 to ensure adequate renal perfusion * Acute on likely chronic kidney disease: slightly better * History of CAD. Continue on antiplatelet therapy/ b blockers * History of hypertension. On antihypertensives. keep sbp> 100 * Diabetes.. Continue insulin regimen and adjust as needed Consultation Date/Type/Reason Admit Date/Time Aug 31, 2016 at 19:32 Type of Consultation: Cardiology Referring Provider: LEE RAHMAN 24 HR Interval Summary Free Text/Dictation DOING OK. SITTING IN BED. SOME COUGH. NO SOB Exam/Review of Systems Vital Signs Vitals Vital Signs Date Time Temp Pulse Resp B/P Pulse Ox O2 Delivery O2 Flow Rate FiO2 09/04/16 08:10 Nasal Cannula 2.0 09/04/16 08:04 68 09/04/16 07:50 97.6 19 118/61 97 09/02/16 03:12 21 Intake and Output 09/03/16 09/03/16 09/04/16 15:00 23:00 07:00 Intake Total 900 ml 240 ml Output Total 700 ml 925 ml Balance 200 ml -685 ml Exam Constitutional: alert, oriented Psych: no complaints Head: normocephalic Neck: non-tender, supple Respiratory: diminished breath sounds Cardiovascular: edema (s/p bka), regular rate and rhythm Gastrointestinal: non-tender, soft Results Result Diagram: 09/04/1637 09/04/16 0937 Results 24 hrs Laboratory Tests Test 09/03/16 11:59 09/03/16 17:19 09/03/16 20:55 09/04/16 06:12 Bedside Glucose 112 137 142 White Blood Count 8.2 Red Blood Count 3.63 L Hemoglobin 8.8 L Hematocrit 29.7 L Mean Corpuscular Volume 81.8 L Mean Corpuscular Hemoglobin 24.2 L Mean Corpuscular Hemoglobin Concent 29.6 L Red Cell Distribution Width 17.6 H Platelet Count 177 Mean Platelet Volume 10.3 Neutrophils % 72.1 Lymphocytes % 12.6 L Monocytes % 10.0 Eosinophils % 4.4 Basophils % 0.4 Nucleated Red Blood Cells % 0.0 Neutrophils # 5.9 Lymphocytes # 1.0 Monocytes # 0.8 Eosinophils # 0.4 Basophils # 0.0 Nucleated Red Blood Cells # 0.0 Phosphorus Level 4.7 Magnesium Level 1.9 Test 09/04/16 08:12 09/04/16 09:37 Bedside Glucose 70 White Blood Count 8.4 Red Blood Count 3.76 L Hemoglobin 9.3 L Hematocrit 30.7 L Mean Corpuscular Volume 81.6 L Mean Corpuscular Hemoglobin 24.7 L Mean Corpuscular Hemoglobin Concent 30.3 L Red Cell Distribution Width 17.6 H Platelet Count 188 Mean Platelet Volume 10.1 Neutrophils % 72.3 Lymphocytes % 11.3 L Monocytes % 10.9 Eosinophils % 4.5 Basophils % 0.5 Nucleated Red Blood Cells % 0.0 Neutrophils # 6.1 Lymphocytes # 1.0 Monocytes # 0.9 Eosinophils # 0.4 Basophils # 0.0 Nucleated Red Blood Cells # 0.0 Sodium Level 141 Potassium Level 5.2 H Chloride Level 104 Carbon Dioxide Level 26 Anion Gap 16 Blood Urea Nitrogen 57 H Creatinine 2.28 H Glucose Level 100 Calcium Level 8.4 Medications Medications Current Medications Heparin Sodium (Porcine) (Heparin (5000 Units/0.5 ml)) 5,000 unit BID SC Last administered on 09/04/16 09:33; Admin Dose 5,000 UNIT; Start 09/01/16 at 09:00 Acetaminophen (Tylenol Tab) 650 mg Q6H PRN PO PAIN AND OR ELEVATED TEMP; Start 09/01/16 at 05:00 Insulin Glargine (Lantus) 12 unit DAILY@20 SC Last administered on 09/03/16 21 :20; Admin Dose 12 UNIT; Start 09/01/16 at 20:00 Diagnostic Test (Pha) (Accu-Chek) 1 ea 02 XX Last administered on 09/02/16 02: 00; Admin Dose 1 EA; Start 09/02/16 at 02:00 Ondansetron HCl (Zofran Inj) 4 mg Q6H PRN IV NAUSEA AND/OR VOMITING; Start at 05:00 Miscellaneous Information 1 ea NOTE XX ; Start 09/01/16 at 05:00 Glucose (Glutose) 15 gm Q15M PRN PO DECREASED GLUCOSE; Start 09/01/16 at 05:00 Glucose (Glutose) 22.5 gm Q15M PRN PO DECREASED GLUCOSE; Start 09/01/16 at 05: 00 Dextrose (D50w Syringe) 25 ml Q15M PRN IV DECREASED GLUCOSE; Start 09/01/16 at 05:00 Dextrose (D50w Syringe) 50 ml Q15M PRN IV DECREASED GLUCOSE; Start 09/01/16 at 05:00 Glucagon (Glucagen) 1 mg Q15M PRN IM DECREASED GLUCOSE; Start 09/01/16 at 05:00 Glucose (Glutose) 15 gm Q15M PRN BUCCAL DECREASED GLUCOSE; Start 09/01/16 at 05 :00 Aspirin (Halfprin) 81 mg DAILY PO Last administered on 09/04/16 09:23; Admin Dose 81 MG; Start 09/01/16 at 09:00 Hydroxyzine HCl (Atarax) 25 mg Q6H PRN GTB ITCHING; Start 09/01/16 at 08:30 Docusate Sodium (Colace) 100 mg DAILY PO Last administered on 09/04/16 09:23; Admin Dose 100 MG; Start 09/01/16 at 09:00 Metoprolol Succinate (Toprol Xl) 12.5 mg BID PO Last administered on 09/04/16 09:24; Admin Dose 12.5 MG; Start 09/03/16 at 21:00 Hydralazine HCl (Apresoline) 10 mg Q8 PO Last administered on 09/03/16 21:18; Admin Dose 10 MG; Start 09/03/16 at 22:00 ELVIS PACHECO MD Sep 04, 2016 11:40
--- NOTE | 2016-09-04 15:26 | CONS ---
Date/Time of Note Date/Time of Note DATE: 09/04/16 TIME: 15:23 Assessment/Plan Assessment/Plan Chief Complaint/Hosp Course IMPRESSION: 1. Congestive heart failure, systolic, acute on chronic, likely.-negative troponin x 3 2. Cardiomyopathy with severely depressed left ventricular ejection fraction.15 -20% by echo this admit 3. Abnormal electrocardiogram with left bundle branch block pattern; negative troponins greater than 3. 4. Hypertension, under reasonable control. 5. Peripheral vascular disease, status post right above the knee amputation. 6. Renal failure. 7. Hyperkalemia-improved 8. Anemia. 9.Dyslipidemia-LDL 93 HDL 27 Recc: -Tele -serial ecg's -Continue toprol XL -Continue low dose hydralazine afterload reduction as tolerated to improve cardiac output in lieu of ACEI given renal failure at this time -Continue lasix diuresis and follow regulatory compliance coordinator closely and volume status Problems: Consultation Date/Type/Reason Admit Date/Time Aug 31, 2016 at 19:32 Initial Consult Date 09/02/2016 Type of Consultation: Cardiology Reason for Consultation Cardiomyopathy Referring Provider: LEE RAHMAN Exam/Review of Systems Vital Signs Vitals Vital Signs Date Time Temp Pulse Resp B/P Pulse Ox O2 Delivery O2 Flow Rate FiO2 09/04/16 12:27 97.6 70 18 120/65 99 09/04/16 08:10 Nasal Cannula 2.0 09/02/16 03:12 21 Intake and Output 09/03/16 09/03/16 09/04/16 15:00 23:00 07:00 Intake Total 900 ml 240 ml Output Total 700 ml 925 ml Balance 200 ml -685 ml Exam Cardiomyopathy Constitutional: alert Psych: no complaints Head: normocephalic ENMT: mucosa pink and moist Neck: supple Respiratory: clear to auscultation Cardiovascular: regular rate and rhythm Gastrointestinal: non-tender, soft Musculoskeletal: muscle tone (normal) Extremities: other (s/p LLE amputation), pitting pedal edema Neurological: other (No focal deficits) Results Result Diagram: 09/04/16 0937 09/04/16 0937 Results 24 hrs Laboratory Tests Test 09/03/16 17:19 09/03/16 20:55 09/04/16 06:12 09/04/16 08:12 Bedside Glucose 137 142 70 White Blood Count 8.2 Red Blood Count 3.63 L Hemoglobin 8.8 L Hematocrit 29.7 L Mean Corpuscular Volume 81.8 L Mean Corpuscular Hemoglobin 24.2 L Mean Corpuscular Hemoglobin Concent 29.6 L Red Cell Distribution Width 17.6 H Platelet Count 177 Mean Platelet Volume 10.3 Neutrophils % 72.1 Lymphocytes % 12.6 L Monocytes % 10.0 Eosinophils % 4.4 Basophils % 0.4 Nucleated Red Blood Cells % 0.0 Neutrophils # 5.9 Lymphocytes # 1.0 Monocytes # 0.8 Eosinophils # 0.4 Basophils # 0.0 Nucleated Red Blood Cells # 0.0 Phosphorus Level 4.7 Magnesium Level 1.9 Test 09/04/16 09:37 09/04/16 12:20 White Blood Count 8.4 Red Blood Count 3.76 L Hemoglobin 9.3 L Hematocrit 30.7 L Mean Corpuscular Volume 81.6 L Mean Corpuscular Hemoglobin 24.7 L Mean Corpuscular Hemoglobin Concent 30.3 L Red Cell Distribution Width 17.6 H Platelet Count 188 Mean Platelet Volume 10.1 Neutrophils % 72.3 Lymphocytes % 11.3 L Monocytes % 10.9 Eosinophils % 4.5 Basophils % 0.5 Nucleated Red Blood Cells % 0.0 Neutrophils # 6.1 Lymphocytes # 1.0 Monocytes # 0.9 Eosinophils # 0.4 Basophils # 0.0 Nucleated Red Blood Cells # 0.0 Sodium Level 141 Potassium Level 5.2 H Chloride Level 104 Carbon Dioxide Level 26 Anion Gap 16 Blood Urea Nitrogen 57 H Creatinine 2.28 H Glucose Level 100 Calcium Level 8.4 Bedside Glucose 97 Medications Medications Current Medications Heparin Sodium (Porcine) (Heparin (5000 Units/0.5 ml)) 5,000 unit BID SC Last administered on 09/04/16 09:33; Admin Dose 5,000 UNIT; Start 09/01/16 at 09:00 Acetaminophen (Tylenol Tab) 650 mg Q6H PRN PO PAIN AND OR ELEVATED TEMP; Start 09/01/16 at 05:00 Insulin Glargine (Lantus) 12 unit DAILY@20 SC Last administered on 09/03/16 21 :20; Admin Dose 12 UNIT; Start 09/01/16 at 20:00 Diagnostic Test (Pha) (Accu-Chek) 1 XX Last administered on 09/02/16 02: 00; Admin Dose 1 EA; Start 09/02/16 at 02:00 Ondansetron HCl (Zofran Inj) 4 mg Q6H PRN IV NAUSEA AND/OR VOMITING; Start at 05:00 Miscellaneous Information 1 ea NOTE XX ; Start 09/01/16 at 05:00 Glucose (Glutose) 15 gm Q15M PRN PO DECREASED GLUCOSE; Start 09/01/16 at 05:00 Glucose (Glutose) 22.5 gm Q15M PRN PO DECREASED GLUCOSE; Start 09/01/16 at 05: 00 Dextrose (D50w Syringe) 25 ml Q15M PRN IV DECREASED GLUCOSE; Start 09/01/16 at 05:00 Dextrose (D50w Syringe) 50 ml Q15M PRN IV DECREASED GLUCOSE; Start 09/01/16 at 05:00 Glucagon (Glucagen) 1 mg Q15M PRN IM DECREASED GLUCOSE; Start 09/01/16 at 05:00 Glucose (Glutose) 15 gm Q15M PRN BUCCAL DECREASED GLUCOSE; Start 09/01/16 at 05 :00 Aspirin (Halfprin) 81 mg DAILY PO Last administered on 09/04/16 09:23; Admin Dose 81 MG; Start 09/01/16 at 09:00 Hydroxyzine HCl (Atarax) 25 mg Q6H PRN GTB ITCHING; Start 09/01/16 at 08:30 Docusate Sodium (Colace) 100 mg DAILY PO Last administered on 09/04/16 09:23; Admin Dose 100 MG; Start 09/01/16 at 09:00 Metoprolol Succinate (Toprol Xl) 12.5 mg BID PO Last administered on 09/04/16 09:24; Admin Dose 12.5 MG; Start 09/03/16 at 21:00 Hydralazine HCl (Apresoline) 10 mg Q8 PO Last administered on 09/04/16 14:09; Admin Dose 10 MG; Start 09/03/16 at 22:00 ELANA LARSON Sep 04, 2016 15:26
[2016-09-04] MEDS: INSULIN GLARGINE [LANtus] 3 ML PEN SC SCH (20:24)
[2016-09-04] MEDS: IPRATROPIUM (NEB) 0.5 MG/2.5 ML AMP HHN PRN (21:03)
[2016-09-04] MEDS: LEVALBUTEROL (NEB) 0.63 MG/3 ML AMP HHN PRN (21:03)
[2016-09-05] VITALS (12 sets, daily range): BP systolic 97–126; BP diastolic 50–76; PULSE 69–80; RESP 18–20
[2016-09-05] MEDS: ACCU-CHEK XX SCH (02:00)
[2016-09-05] MEDS: FUROSEMIDE 40 MG INJ IV SCH ×2 (05:59→17:53)
[2016-09-05 07:59] LABS: ADD SCAN DIFF NO
[2016-09-05] MEDS: INSULIN ASPART [NOVOLOG] 3 ML PEN SC SCH ×4 (07:59→21:00)
[2016-09-05 08:05] LABS: BASOPHIL # 0.1 10^3/ul (0.0-0.1); BASOPHILS % 0.6 % (0.0-2.0); EOSINOPHILS # 0.3 10^3/ul (0.0-0.5); EOSINOPHILS % 3.9 % (0.0-7.0); HEMATOCRIT 28.4 % (42.0-52.0); HEMOGLOBIN 8.6 g/dl (14.0-18.0); LYMPHOCYTES % 11.3 % (15.0-51.0); MEAN CORPUSCULAR HEMOGLOBIN 24.6 pg (29.0-33.0); MEAN CORPUSCULAR HGB CONC 30.3 g/dl (32.0-37.0); MEAN CORPUSCULAR VOLUME 81.1 fl (82.0-101.0); MEAN PLATELET VOLUME 10.4 fl (7.4-10.4); MONOCYTE # 0.9 10^3/ul (0.3-0.9); MONOCYTES % 10.5 % (0.0-11.0); NEUTROPHIL # 6.4 10^3/ul (1.6-7.5); NEUTROPHILS % 73.2 % (39.0-77.0); PLATELET COUNT 179 10^3/UL (140-415); RED CELL DISTRIBUTION WIDTH 17.5 % (11.5-14.5); WHITE BLOOD COUNT 8.7 10^3/ul (4.8-10.8)
[2016-09-05 08:25] LABS: ALBUMIN/GLOBULIN RATIO 0.81; BILIRUBIN,INDIRECT 0.1 mg/dl (0-1.1); BILIRUBIN,TOTAL 0.1 mg/dl (0.2-1.3); CALCIUM 8.1 mg/dl (8.4-10.2); CREATININE 2.08 mg/dl (0.61-1.24); TOTAL PROTEIN 6.7 g/dl (6.1-8.1)
[2016-09-05] MEDS: DOCUSATE SODIUM 100 MG CAP PO SCH (08:34)
[2016-09-05] MEDS: ASPIRIN (EC) 81 MG TAB PO SCH (08:35)
[2016-09-05] MEDS: HEPARIN 5,000 UNIT/0.5 ML VIAL SC SCH ×2 (08:36→20:34)
[2016-09-05] MEDS: METOPROLOL (XL) 25 MG TAB PO SCH ×2 (08:37→20:28)
--- NOTE | 2016-09-05 08:41 | CONS ---
Date/Time of Note Date/Time of Note DATE: 09/05/16 TIME: 08:39 Assessment/Plan Assessment/Plan Additional Assessment/Plan 1. CKD is stable despite diuretic rx, will inc Lasix 2. CHF improved. Consultation Date/Type/Reason Admit Date/Time Aug 31, 2016 at 19:32 Type of Consultation: Cardiology Referring Provider: LEE RAHMAN Detailed Summary Respiratory: No shortness of breath Cardiovascular: No chest pain Gastrointestinal: no complaints Exam/Review of Systems Vital Signs Vitals Vital Signs Date Time Temp Pulse Resp B/P Pulse Ox O2 Delivery O2 Flow Rate FiO2 09/05/16 08:17 69 09/05/16 08:15 2.0 09/05/16 07:26 97.7 20 97/50 92 09/04/16 21:03 Nasal Cannula 09/02/16 03:12 21 Intake and Output 09/04/16 09/04/16 09/05/16 15:00 23:00 07:00 Intake Total 120 ml 800 ml 1250 ml Output Total 300 ml 700 ml 1995 ml Balance -180 ml 100 ml -745 ml Exam Neck: jvd (is present) Respiratory: clear to auscultation, diminished breath sounds Cardiovascular: regular rate and rhythm Gastrointestinal: soft Extremities: edema (less sacral edema) Results Result Diagram: 09/05/16 0645 09/05/16 0645 Results 24 hrs Laboratory Tests Test 09/04/16 09:37 09/04/16 12:20 09/04/16 17:38 09/04/16 20:03 White Blood Count 8.4 Red Blood Count 3.76 L Hemoglobin 9.3 L Hematocrit 30.7 L Mean Corpuscular Volume 81.6 L Mean Corpuscular Hemoglobin 24.7 L Mean Corpuscular Hemoglobin Concent 30.3 L Red Cell Distribution Width 17.6 H Platelet Count 188 Mean Platelet Volume 10.1 Neutrophils % 72.3 Lymphocytes % 11.3 L Monocytes % 10.9 Eosinophils % 4.5 Basophils % 0.5 Nucleated Red Blood Cells % 0.0 Neutrophils # 6.1 Lymphocytes # 1.0 Monocytes # 0.9 Eosinophils # 0.4 Basophils # 0.0 Nucleated Red Blood Cells # 0.0 Sodium Level 141 Potassium Level 5.2 H Chloride Level 104 Carbon Dioxide Level 26 Anion Gap 16 Blood Urea Nitrogen 57 H Creatinine 2.28 H Glucose Level 100 Calcium Level 8.4 Bedside Glucose 97 134 182 Test 09/05/16 02:52 09/05/16 06:45 09/05/16 07:39 Bedside Glucose 134 280 H White Blood Count 8.7 Red Blood Count 3.50 L Hemoglobin 8.6 L Hematocrit 28.4 L Mean Corpuscular Volume 81.1 L Mean Corpuscular Hemoglobin 24.6 L Mean Corpuscular Hemoglobin Concent 30.3 L Red Cell Distribution Width 17.5 H Platelet Count 179 Mean Platelet Volume 10.4 Neutrophils % 73.2 Lymphocytes % 11.3 L Monocytes % 10.5 Eosinophils % 3.9 Basophils % 0.6 Nucleated Red Blood Cells % 0.0 Neutrophils # 6.4 Lymphocytes # 1.0 Monocytes # 0.9 Eosinophils # 0.3 Basophils # 0.1 Nucleated Red Blood Cells # 0.0 Sodium Level 136 Potassium Level 5.0 Chloride Level 106 Carbon Dioxide Level 23 Anion Gap 12 Blood Urea Nitrogen 61 H Creatinine 2.08 H Glucose Level 134 Calcium Level 8.1 L Total Bilirubin 0.1 L Direct Bilirubin 0.00 Indirect Bilirubin 0.1 Aspartate Amino Transf (AST/SGOT) 23 Alanine Aminotransferase (ALT/SGPT) 26 Alkaline Phosphatase 144 H Total Protein 6.7 Albumin 3.0 L Globulin 3.70 H Albumin/Globulin Ratio 0.81 Medications Medications Current Medications Heparin Sodium (Porcine) (Heparin (5000 Units/0.5 ml)) 5,000 unit BID SC Last administered on 09/05/16 08:36; Admin Dose 5,000 UNIT; Start 09/01/16 at 09:00 Acetaminophen (Tylenol Tab) 650 mg Q6H PRN PO PAIN AND OR ELEVATED TEMP; Start 09/01/16 at 05:00 Insulin Glargine (Lantus) 12 unit DAILY@20 SC Last administered on 09/04/16 20 :24; Admin Dose 12 UNIT; Start 09/01/16 at 20:00 Diagnostic Test (Pha) (Accu-Chek) 1 ea 02 XX Last administered on 09/05/16 02: 00; Admin Dose 1 EA; Start 09/02/16 at 02:00 Ondansetron HCl (Zofran Inj) 4 mg Q6H PRN IV NAUSEA AND/OR VOMITING; Start at 05:00 Miscellaneous Information 1 ea NOTE XX ; Start 09/01/16 at 05:00 Glucose (Glutose) 15 gm Q15M PRN PO DECREASED GLUCOSE; Start 09/01/16 at 05:00 Glucose (Glutose) 22.5 gm Q15M PRN PO DECREASED GLUCOSE; Start 09/01/16 at 05: 00 Dextrose (D50w Syringe) 25 ml Q15M PRN IV DECREASED GLUCOSE; Start 09/01/16 at 05:00 Dextrose (D50w Syringe) 50 ml Q15M PRN IV DECREASED GLUCOSE; Start 09/01/16 at 05:00 Glucagon (Glucagen) 1 mg Q15M PRN IM DECREASED GLUCOSE; Start 09/01/16 at 05:00 Glucose (Glutose) 15 gm Q15M PRN BUCCAL DECREASED GLUCOSE; Start 09/01/16 at 05 :00 Aspirin (Halfprin) 81 mg DAILY PO Last administered on 09/05/16 08:35; Admin Dose 81 MG; Start 09/01/16 at 09:00 Hydroxyzine HCl (Atarax) 25 mg Q6H PRN GTB ITCHING; Start 09/01/16 at 08:30 Docusate Sodium (Colace) 100 mg DAILY PO Last administered on 09/05/16 08:34; Admin Dose 100 MG; Start 09/01/16 at 09:00 Metoprolol Succinate (Toprol Xl) 12.5 mg BID PO Last administered on 09/04/16 20:30; Admin Dose 12.5 MG; Start 09/03/16 at 21:00 Hydralazine HCl (Apresoline) 10 mg Q8 PO Last administered on 09/04/16 22:39; Admin Dose 10 MG; Start 09/03/16 at 22:00 JACKIE FROST MD September 05, 2016 08:41
--- NOTE | 2016-09-05 15:03 | RADRPT ---
Vent Rate: 74 bpm RR Interval: 0 msec [place] Interval: 168 msec QRS Duration: 182 msec QT Interval: 448 msec QTC Interval: 497 msec P-R-T [place]: 42 - -21 - 0 degrees Normal sinus rhythm Nonspecific intraventricular block Possible Lateral infarct , age undetermined Abnormal ECG Electronically Signed By: Micky Gibbons [id number]
--- NOTE | 2016-09-05 18:33 | PN ---
DATE: 09/05/2016 TIME OF EVALUATION: 1600. SUBJECTIVE DATA: Denies any chest pain. Denies any dyspnea. OBJECTIVE DATA: VITAL SIGNS: Temperature 98.0, pulse 76, respiratory rate 20, blood pressure 123/71, oxygen saturation 97% on room air. GENERAL: This is a 65-year-old male sitting in bed in no apparent distress. HEENT: Head normocephalic and atraumatic. Eyes: Anicteric sclerae. Conjunctivae clear. ENT: Nasal septum is midline. Oral mucosa is moist. NECK: Supple. No JVD noticed. RESPIRATORY: Bilaterally diminished breath sounds. No adventitious breath sounds heard. No use of accessory muscles of respiration. CARDIAC: Regular rate and rhythm. S1 and S2 heard. GENITOURINARY: Deferred. EXTREMITIES: No cyanosis, no clubbing. Right-sided below knee amputation. NEUROLOGIC: The patient is awake, alert and oriented. Cranial nerves are grossly intact. LABORATORY AND DIAGNOSTIC DATA: WBC 8.7, hemoglobin 8.6, hematocrit 28.4, platelet count 129. Sodium 136, potassium 5.0, chloride 106, carbon dioxide 23 , anion gap 12, BUN 61, creatinine 2.3, glucose 134, calcium 8.1. ASSESSMENT AND PLAN: 1. Acute respiratory failure. Hypoxic. Most probably secondary to congestive heart failure exacerbation. Systolic dysfunction. Continue supplemental oxygen and inhaled bronchodilators. 2. Cardiomyopathy with ejection fraction of 15% to 20%. Continue cardiac medications including beta blockers and hydralazine. The patient is not an ideal candidate for JACQUELINE inhibitors because of underlying renal function. 3. Acute on chronic congestive heart failure exacerbation. Systolic dysfunction. Continue on diuretics as per nephrology. 4. Acute on chronic kidney disease. Continue to monitor BUN and creatinine closely. Nephrology following. 5. Essential hypertension. Continue antihypertensives. Blood pressure slightly on the lower side. 6. Coronary artery disease. Continue antiplatelet therapy. 7. Diabetes mellitus type 2. Hemoglobin A1c 5.4. Continue sliding scale insulin. Blood sugars fairly well controlled. 8. Dyslipidemia. Low cholesterol diet. 9. Hyperkalemia, most probably secondary to underlying worsening renal function , improving. 10. Peripheral vascular disease. Continue antiplatelet therapy. 11. Fluid, electrolytes and nutrition. Carbohydrate controlled low cholesterol diet. 12 Deep venous thrombosis prophylaxis. Subcutaneous heparin. 13. Gastrointestinal prophylaxis. Histamine 2 receptor blockers. PLAN: 1. Continue current management. 2. Continue to monitor renal function closely. 3. Will discharge the patient home once cleared by consultants. The case was discussed with Dr. Valera. The plan of care was explained to the patient's daughter over the phone. RICKY VALERA MD, AM/IMTIAZ Conf#: [id number] DID#: [id number] MTDD
[2016-09-05] MEDS: FAMOTIDINE 20 MG TAB PO SCH (18:34)
--- NOTE | 2016-09-05 18:50 | CONS ---
Date/Time of Note Date/Time of Note DATE: 09/05/16 TIME: 18:48 Assessment/Plan Assessment/Plan Chief Complaint/Hosp Course IMPRESSION: 1. Congestive heart failure, systolic, acute on chronic, likely.-negative troponin x 3 2. Cardiomyopathy with severely depressed left ventricular ejection fraction.15 -20% by echo this admit 3. Abnormal electrocardiogram with left bundle branch block pattern; negative troponins greater than 3. 4. Hypertension, under reasonable control. 5. Peripheral vascular disease, status post right above the knee amputation. 6. Renal failure. 7. Hyperkalemia-improved 8. Anemia. 9.Dyslipidemia-LDL 93 HDL 27 Recc: -Tele -serial ecg's -Continue toprol XL -Continue low dose hydralazine afterload reduction as tolerated to improve cardiac output in lieu of ACEI given renal failure at this time -Continue lasix diuresis which was increased today and follow [employer] exchange administrator closely and volume status which are both slowly improving Problems: Consultation Date/Type/Reason Admit Date/Time Aug 31, 2016 at 19:32 Initial Consult Date 09/02/2016 Type of Consultation: Cardiology Reason for Consultation CHF/cardiomyopathy Referring Provider: LEE RAHMAN Exam/Review of Systems Vital Signs Vitals Vital Signs Date Time Temp Pulse Resp B/P Pulse Ox O2 Delivery O2 Flow Rate FiO2 09/05/16 16:21 76 09/05/16 15:58 98.0 20 123/61 95 09/05/16 08:15 2.0 09/05/16 07:30 Nasal Cannula 09/02/16 03:12 21 Intake and Output 09/04/16 09/04/16 09/05/16 15:00 23:00 07:00 Intake Total 120 ml 800 ml 1250 ml Output Total 300 ml 700 ml 1995 ml Balance -180 ml 100 ml -745 ml Exam Review of Systems: CONSTITUTIONAL: No fevers, chills. PULMONARY: ongoing sob CARDIOVASCULAR: No chest pain/palpitations GASTROINTESTINAL: No nausea/vomiting. GENITOURINARY: No hematuria/dysuria. MUSCULOSKELETAL: No myagias/arthalgias. PSYCHIATRIC: The patient denies depression. NEUROLOGIC: generalized weakness Constitutional: alert Psych: no complaints Head: normocephalic ENMT: mucosa pink and moist Neck: jvd (9 cm water), supple Respiratory: diminished breath sounds (at bases/B) Cardiovascular: regular rate and rhythm Gastrointestinal: non-tender, soft Musculoskeletal: muscle tone (normal) Extremities: other (RLE s/p amputation), pitting pedal edema (LLE) Neurological: lethargic Results Result Diagram: 09/05/16 0645 09/05/16 0645 Results 24 hrs Laboratory Tests Test 09/04/16 20:03 09/05/16 02:52 09/05/16 06:45 09/05/16 07:39 Bedside Glucose 182 134 280 H White Blood Count 8.7 Red Blood Count 3.50 L Hemoglobin 8.6 L Hematocrit 28.4 L Mean Corpuscular Volume 81.1 L Mean Corpuscular Hemoglobin 24.6 L Mean Corpuscular Hemoglobin Concent 30.3 L Red Cell Distribution Width 17.5 H Platelet Count 179 Mean Platelet Volume 10.4 Neutrophils % 73.2 Lymphocytes % 11.3 L Monocytes % 10.5 Eosinophils % 3.9 Basophils % 0.6 Nucleated Red Blood Cells % 0.0 Neutrophils # 6.4 Lymphocytes # 1.0 Monocytes # 0.9 Eosinophils # 0.3 Basophils # 0.1 Nucleated Red Blood Cells # 0.0 Sodium Level 136 Potassium Level 5.0 Chloride Level 106 Carbon Dioxide Level 23 Anion Gap 12 Blood Urea Nitrogen 61 H Creatinine 2.08 H Glucose Level 134 Calcium Level 8.1 L Total Bilirubin 0.1 L Direct Bilirubin 0.00 Indirect Bilirubin 0.1 Aspartate Amino Transf (AST/SGOT) 23 Alanine Aminotransferase (ALT/SGPT) 26 Alkaline Phosphatase 144 H Total Protein 6.7 Albumin 3.0 L Globulin 3.70 H Albumin/Globulin Ratio 0.81 Test 09/05/16 11:48 09/05/16 17:04 Bedside Glucose 92 136 Medications Medications Current Medications Heparin Sodium (Porcine) (Heparin (5000 Units/0.5 ml)) 5,000 unit BID SC Last administered on 09/05/16 08:36; Admin Dose 5,000 UNIT; Start 09/01/16 at 09:00 Acetaminophen (Tylenol Tab) 650 mg Q6H PRN PO PAIN AND OR ELEVATED TEMP; Start 09/01/16 at 05:00 Insulin Glargine (Lantus) 12 unit DAILY@20 SC Last administered on 09/04/16 20 :24; Admin Dose 12 UNIT; Start 09/01/16 at 20:00 Diagnostic Test (Pha) (Accu-Chek) 1 ea 02 XX Last administered on 09/05/16 02: 00; Admin Dose 1 EA; Start 09/02/16 at 02:00 Ondansetron HCl (Zofran Inj) 4 mg Q6H PRN IV NAUSEA AND/OR VOMITING; Start at 05:00 Miscellaneous Information 1 ea NOTE XX ; Start 09/01/16 at 05:00 Glucose (Glutose) 15 gm Q15M PRN PO DECREASED GLUCOSE; Start 09/01/16 at 05:00 Glucose (Glutose) 22.5 gm Q15M PRN PO DECREASED GLUCOSE; Start 09/01/16 at 05: 00 Dextrose (D50w Syringe) 25 ml Q15M PRN IV DECREASED GLUCOSE; Start 09/01/16 at 05:00 Dextrose (D50w Syringe) 50 ml Q15M PRN IV DECREASED GLUCOSE; Start 09/01/16 at 05:00 Glucagon (Glucagen) 1 mg Q15M PRN IM DECREASED GLUCOSE; Start 09/01/16 at 05:00 Glucose (Glutose) 15 gm Q15M PRN BUCCAL DECREASED GLUCOSE; Start 09/01/16 at 05 :00 Aspirin (Halfprin) 81 mg DAILY PO Last administered on 09/05/16 08:35; Admin Dose 81 MG; Start 09/01/16 at 09:00 Hydroxyzine HCl (Atarax) 25 mg Q6H PRN GTB ITCHING; Start 09/01/16 at 08:30 Docusate Sodium (Colace) 100 mg DAILY PO Last administered on 09/05/16 08:34; Admin Dose 100 MG; Start 09/01/16 at 09:00 Metoprolol Succinate (Toprol Xl) 12.5 mg BID PO Last administered on 09/04/16 20:30; Admin Dose 12.5 MG; Start 09/03/16 at 21:00 Hydralazine HCl (Apresoline) 10 mg Q8 PO Last administered on 09/05/16 15:48; Admin Dose 10 MG; Start 09/03/16 at 22:00 Famotidine (Pepcid) 20 mg DAILY PO Last administered on 09/05/16 18:34; Admin Dose 20 MG; Start 09/05/16 at 17:57 ELANA LARSON 1, 2017 18:50
[2016-09-05] MEDS: INSULIN GLARGINE [LANtus] 3 ML PEN SC SCH (20:33)
[2016-09-06] VITALS (12 sets, daily range): BP systolic 101–144; BP diastolic 41–79; PULSE 72–85; RESP 18–22
[2016-09-06] MEDS: ACCU-CHEK XX SCH (02:00)
[2016-09-06] MEDS: FUROSEMIDE 40 MG INJ IV SCH ×2 (06:00→17:18)
[2016-09-06 06:33] LABS: ADD SCAN DIFF NO
[2016-09-06 06:41] LABS: BASOPHILS % 0.5 % (0.0-2.0); EOSINOPHILS # 0.4 10^3/ul (0.0-0.5); EOSINOPHILS % 4.6 % (0.0-7.0); HEMATOCRIT 30.5 % (42.0-52.0); HEMOGLOBIN 9.1 g/dl (14.0-18.0); LYMPHOCYTES % 11.4 % (15.0-51.0); MEAN CORPUSCULAR HEMOGLOBIN 23.9 pg (29.0-33.0); MEAN CORPUSCULAR HGB CONC 29.8 g/dl (32.0-37.0); MEAN CORPUSCULAR VOLUME 80.1 fl (82.0-101.0); MEAN PLATELET VOLUME 10.2 fl (7.4-10.4); MONOCYTE # 0.8 10^3/ul (0.3-0.9); MONOCYTES % 8.7 % (0.0-11.0); NEUTROPHIL # 6.5 10^3/ul (1.6-7.5); NEUTROPHILS % 74.5 % (39.0-77.0); PLATELET COUNT 203 10^3/UL (140-415); RED BLOOD COUNT 3.81 10^6/ul (4.70-6.10); RED CELL DISTRIBUTION WIDTH 17.4 % (11.5-14.5); WHITE BLOOD COUNT 8.7 10^3/ul (4.8-10.8)
[2016-09-06 06:52] LABS: CALCIUM 8.5 mg/dl (8.4-10.2); CREATININE 1.96 mg/dl (0.61-1.24); POTASSIUM 5.2 mmol/L (3.5-5.1)
--- NOTE | 2016-09-06 07:56 | CONS ---
Date/Time of Note Date/Time of Note DATE: 09/06/16 TIME: 07:54 Assessment/Plan Assessment/Plan Additional Assessment/Plan 1. CKD, stable 2. CHF, will add zaroxolyn bid, follow up cxr ordered 3. Cards comments reviewed Consultation Date/Type/Reason Admit Date/Time Aug 31, 2016 at 19:32 Type of Consultation: Cardiology Referring Provider: LEE RAHMAN Detailed Summary Respiratory: cough, shortness of breath Cardiovascular: No chest pain Gastrointestinal: no complaints Exam/Review of Systems Vital Signs Vitals Vital Signs Date Time Temp Pulse Resp B/P Pulse Ox O2 Delivery O2 Flow Rate FiO2 09/06/16 06:06 2.0 09/06/16 04:55 98.1 77 20 101/41 95 09/05/16 07:30 Nasal Cannula Intake and Output 09/05/16 09/05/16 09/06/16 15:00 23:00 07:00 Intake Total 400 ml 250 ml Output Total 800 ml Balance 400 ml -550 ml Exam Neck: jvd Respiratory: diminished breath sounds, other (rhonchi bilat and few rales) Cardiovascular: regular rate and rhythm Gastrointestinal: soft Extremities: No edema (mod sacral edema) Results Result Diagram: 09/06/16 0610 09/06/16 0610 Results 24 hrs Laboratory Tests Test 09/05/16 11:48 09/05/16 17:04 09/05/16 20:25 09/06/16 06:10 Bedside Glucose 92 136 141 White Blood Count 8.7 Red Blood Count 3.81 L Hemoglobin 9.1 L Hematocrit 30.5 L Mean Corpuscular Volume 80.1 L Mean Corpuscular Hemoglobin 23.9 L Mean Corpuscular Hemoglobin Concent 29.8 L Red Cell Distribution Width 17.4 H Platelet Count 203 Mean Platelet Volume 10.2 Neutrophils % 74.5 Lymphocytes % 11.4 L Monocytes % 8.7 Eosinophils % 4.6 Basophils % 0.5 Nucleated Red Blood Cells % 0.0 Neutrophils # 6.5 Lymphocytes # 1.0 Monocytes # 0.8 Eosinophils # 0.4 Basophils # 0.0 Nucleated Red Blood Cells # 0.0 Sodium Level 138 Potassium Level 5.2 H Chloride Level 106 Carbon Dioxide Level 25 Anion Gap 12 Blood Urea Nitrogen 60 H Creatinine 1.96 H Glucose Level 116 Calcium Level 8.5 Magnesium Level 1.8 Medications Medications Current Medications Heparin Sodium (Porcine) (Heparin (5000 Units/0.5 ml)) 5,000 unit BID SC Last administered on 09/05/16 20:34; Admin Dose 5,000 UNIT; Start 09/01/16 at 09:00 Acetaminophen (Tylenol Tab) 650 mg Q6H PRN PO PAIN AND OR ELEVATED TEMP; Start 09/01/16 at 05:00 Insulin Glargine (Lantus) 12 unit DAILY@20 SC Last administered on 09/05/16 20: 33; Admin Dose 12 UNIT; Start 09/01/16 at 20:00 Diagnostic Test (Pha) (Accu-Chek) 1 ea 02 XX Last administered on 09/05/16 02: 00; Admin Dose 1 EA; Start 09/02/16 at 02:00 Ondansetron HCl (Zofran Inj) 4 mg Q6H PRN IV NAUSEA AND/OR VOMITING; Start at 05:00 Miscellaneous Information 1 ea NOTE XX ; Start 09/01/16 at 05:00 Glucose (Glutose) 15 gm Q15M PRN PO DECREASED GLUCOSE; Start 09/01/16 at 05:00 Glucose (Glutose) 22.5 gm Q15M PRN PO DECREASED GLUCOSE; Start 09/01/16 at 05: 00 Dextrose (D50w Syringe) 25 ml Q15M PRN IV DECREASED GLUCOSE; Start 09/01/16 at 05:00 Dextrose (D50w Syringe) 50 ml Q15M PRN IV DECREASED GLUCOSE; Start 09/01/16 at 05:00 Glucagon (Glucagen) 1 mg Q15M PRN IM DECREASED GLUCOSE; Start 09/01/16 at 05:00 Glucose (Glutose) 15 gm Q15M PRN BUCCAL DECREASED GLUCOSE; Start 09/01/16 at 05 :00 Aspirin (Halfprin) 81 mg DAILY PO Last administered on 09/05/16 08:35; Admin Dose 81 MG; Start 09/01/16 at 09:00 Hydroxyzine HCl (Atarax) 25 mg Q6H PRN GTB ITCHING; Start 09/01/16 at 08:30 Docusate Sodium (Colace) 100 mg DAILY PO Last administered on 09/05/16 08:34; Admin Dose 100 MG; Start 09/01/16 at 09:00 Metoprolol Succinate (Toprol Xl) 12.5 mg BID PO Last administered on 09/05/16 20:28; Admin Dose 12.5 MG; Start 09/03/16 at 21:00 Hydralazine HCl (Apresoline) 10 mg Q8 PO Last administered on 09/05/16 21:47; Admin Dose 10 MG; Start 09/03/16 at 22:00 Famotidine (Pepcid) 20 mg DAILY PO Last administered on 09/05/16 18:34; Admin Dose 20 MG; Start 09/05/16 at 17:57 JACKIE FROST MD September 06, 2016 07:56
[2016-09-06] MEDS: INSULIN ASPART [NOVOLOG] 3 ML PEN SC SCH ×4 (07:59→20:56)
[2016-09-06] MEDS: HEPARIN 5,000 UNIT/0.5 ML VIAL SC SCH ×2 (09:13→20:52)
[2016-09-06] MEDS: ASPIRIN (EC) 81 MG TAB PO SCH (09:15)
[2016-09-06] MEDS: FAMOTIDINE 20 MG TAB PO SCH (09:15)
[2016-09-06] MEDS: DOCUSATE SODIUM 100 MG CAP PO SCH (09:15)
[2016-09-06] MEDS: METOLAZONE 5 MG TAB PO SCH ×2 (09:15→20:51)
[2016-09-06] MEDS: METOPROLOL (XL) 25 MG TAB PO SCH ×2 (09:16→20:51)
--- NOTE | 2016-09-06 12:28 | PN ---
Date/Time of Note Date/Time of Note DATE: 09/06/16 TIME: 12:28 Assessment/Plan VTE Prophylaxis VTE Prophylaxis Intervention: heparin Lines/Catheters IV Catheter Type (from [facility]): Sal[facility] Urinary Cath still in place: No Assessment/Plan Chief Complaint/Hosp Course 1. Acute respiratory failure. Hypoxic. Secondary to congestive heart failure exacerbation. Systolic dysfunction. Continue supplemental oxygen and inhaled bronchodilators. 2. Cardiomyopathy with ejection fraction of 15% to 20%. Continue cardiac medications including beta blockers and hydralazine. The patient is not an ideal candidate for JACQUELINE inhibitors because of underlying renal function. 3. Acute on chronic congestive heart failure exacerbation. Systolic dysfunction. Continue on diuretics as per nephrology. 4. Acute on chronic kidney disease. Continue to monitor BUN and creatinine closely. Nephrology following. 5. Essential hypertension. Continue antihypertensives. Blood pressure slightly on the lower side. 6. History of coronary artery disease. Continue antiplatelet therapy. 7. Diabetes mellitus type 2. Hemoglobin A1c 5.4. Continue sliding scale insulin. Blood sugars fairly good control. 8. Dyslipidemia. Reinforced low cholesterol diet. 9. Hyperkalemia, most probably secondary to underlying worsening renal function , improving. 10. Peripheral vascular disease. Continue antiplatelet therapy. 11. Fluid, electrolytes and nutrition. Carbohydrate controlled, low cholesterol diet. 12 Deep venous thrombosis prophylaxis, subcutaneous heparin. 13. Gastrointestinal prophylaxis. Histamine 2 receptor blockers. PLAN: 1. Continue current management. 2. Continue to monitor renal function closely. Case discussed with Dr. Fuentes. Problems: Subjective 24 Hr Interval Summary Free Text/Dictation Patient complains of orthopnea. Exam/Review of Systems Vital Signs Vitals Vital Signs Date Time Temp Pulse Resp B/P Pulse Ox O2 Delivery O2 Flow Rate FiO2 09/06/16 12:23 97.8 77 18 127/68 96 09/06/16 06:06 2.0 09/05/16 07:30 Nasal Cannula Intake and Output 09/05/16 09/05/16 09/06/16 15:00 23:00 07:00 Intake Total 400 ml 250 ml Output Total 800 ml Balance 400 ml -550 ml Exam GENERAL: This is a 65-year-old male sitting in bed in no apparent distress. HEENT: Head normocephalic and atraumatic. Eyes: Anicteric sclerae. Conjunctivae clear. ENT: Nasal septum is midline. Oral mucosa is moist. NECK: Supple. No JVD noticed. RESPIRATORY: Bilaterally diminished breath sounds. No adventitious breath sounds heard. No use of accessory muscles of respiration. CARDIAC: Regular rate and rhythm. S1 and S2 heard. GENITOURINARY: Deferred. EXTREMITIES: No cyanosis, no clubbing. Right-sided below knee amputation. NEUROLOGIC: The patient is awake, alert and oriented. Cranial nerves are grossly intact. Results Result Diagram: 09/06/16 0610 09/06/16 0610 Results 24 hrs Laboratory Tests Test 09/05/16 17:04 09/05/16 20:25 09/06/16 06:10 09/06/16 07:58 Bedside Glucose 136 141 106 White Blood Count 8.7 Red Blood Count 3.81 L Hemoglobin 9.1 L Hematocrit 30.5 L Mean Corpuscular Volume 80.1 L Mean Corpuscular Hemoglobin 23.9 L Mean Corpuscular Hemoglobin Concent 29.8 L Red Cell Distribution Width 17.4 H Platelet Count 203 Mean Platelet Volume 10.2 Neutrophils % 74.5 Lymphocytes % 11.4 L Monocytes % 8.7 Eosinophils % 4.6 Basophils % 0.5 Nucleated Red Blood Cells % 0.0 Neutrophils # 6.5 Lymphocytes # 1.0 Monocytes # 0.8 Eosinophils # 0.4 Basophils # 0.0 Nucleated Red Blood Cells # 0.0 Sodium Level 138 Potassium Level 5.2 H Chloride Level 106 Carbon Dioxide Level 25 Anion Gap 12 Blood Urea Nitrogen 60 H Creatinine 1.96 H Glucose Level 116 Calcium Level 8.5 Magnesium Level 1.8 Test 09/06/16 12:10 Bedside Glucose 178 Medications Medications Current Medications Heparin Sodium (Porcine) (Heparin (5000 Units/0.5 ml)) 5,000 unit BID SC Last administered on 09/06/16 09:13; Admin Dose 5,000 UNIT; Start 09/01/16 at 09:00 Acetaminophen (Tylenol Tab) 650 mg Q6H PRN PO PAIN AND OR ELEVATED TEMP; Start 09/01/16 at 05:00 Insulin Glargine (Lantus) 12 unit DAILY@20 SC Last administered on 09/05/16 20: 33; Admin Dose 12 UNIT; Start 09/01/16 at 20:00 Diagnostic Test (Pha) (Accu-Chek) 1 ea 02 XX Last administered on 09/05/16 02: 00; Admin Dose 1 EA; Start 09/02/16 at 02:00 Ondansetron HCl (Zofran Inj) 4 mg Q6H PRN IV NAUSEA AND/OR VOMITING; Start at 05:00 Miscellaneous Information 1 ea NOTE XX ; Start 09/01/16 at 05:00 Glucose (Glutose) 15 gm Q15M PRN PO DECREASED GLUCOSE; Start 09/01/16 at 05:00 Glucose (Glutose) 22.5 gm Q15M PRN PO DECREASED GLUCOSE; Start 09/01/16 at 05: 00 Dextrose (D50w Syringe) 25 ml Q15M PRN IV DECREASED GLUCOSE; Start 09/01/16 at 05:00 Dextrose (D50w Syringe) 50 ml Q15M PRN IV DECREASED GLUCOSE; Start 09/01/16 at 05:00 Glucagon (Glucagen) 1 mg Q15M PRN IM DECREASED GLUCOSE; Start 09/01/16 at 05:00 Glucose (Glutose) 15 gm Q15M PRN BUCCAL DECREASED GLUCOSE; Start 09/01/16 at 05 :00 Aspirin (Halfprin) 81 mg DAILY PO Last administered on 09/06/16 09:15; Admin Dose 81 MG; Start 09/01/16 at 09:00 Hydroxyzine HCl (Atarax) 25 mg Q6H PRN GTB ITCHING; Start 09/01/16 at 08:30 Docusate Sodium (Colace) 100 mg DAILY PO Last administered on 09/06/16 09:15; Admin Dose 100 MG; Start 09/01/16 at 09:00 Metoprolol Succinate (Toprol Xl) 12.5 mg BID PO Last administered on 09/06/16 09:16; Admin Dose 12.5 MG; Start 09/03/16 at 21:00 Hydralazine HCl (Apresoline) 10 mg Q8 PO Last administered on 09/05/16 21:47; Admin Dose 10 MG; Start 09/03/16 at 22:00 Famotidine (Pepcid) 20 mg DAILY PO Last administered on 09/06/16 09:15; Admin Dose 20 MG; Start 09/05/16 at 17:57 Metolazone (Zaroxolyn) 5 mg BID PO Last administered on 09/06/16 09:15; Admin Dose 5 MG; Start 09/06/16 at 09:00 RICKY CHUNG NP September 06, 2016 12:28
--- NOTE | 2016-09-06 15:55 | CONS ---
Date/Time of Note Date/Time of Note DATE: 09/06/16 TIME: 15:53 Assessment/Plan Assessment/Plan Additional Assessment/Plan 1. Congestive heart failure, systolic, acute on chronic, likely - negative troponin x 3 - con't to keep euvolemic. 2. Cardiomyopathy with severely depressed left ventricular ejection fraction.15 -20% by echo this admit - con't diuresis. 3. Abnormal electrocardiogram with left bundle branch block pattern; negative troponins greater than 3. 4. Hypertension, under reasonable control - will monitor clinically. 5. Peripheral vascular disease, status post right above the knee amputation. Stable. 6. Renal failure - acute on chronic, con't medrx. 7. Hyperkalemia-improved 8. Anemia. 9.Dyslipidemia-LDL 93 HDL 27 Consultation Date/Type/Reason Admit Date/Time Aug 31, 2016 at 19:32 Initial Consult Date Type of Consultation: Cardiology Referring Provider: LEE RAHMAN 24 HR Interval Summary Free Text/Dictation No acute events- rate well controlled - con't med rx. ROS: No fever, no chills, no nausea, no vomiting, no diarrhea/constipation No recent weight changes No chest pain, no PND, no orthopnea No dizziness, blurred vision No thirst, no heat or cold intolerance Exam/Review of Systems Vital Signs Vitals Vital Signs Date Time Temp Pulse Resp B/P Pulse Ox O2 Delivery O2 Flow Rate FiO2 09/06/16 12:23 97.8 77 18 127/68 96 09/06/16 06:06 2.0 09/05/16 07:30 Nasal Cannula Intake and Output 09/05/16 09/05/16 09/06/16 15:00 23:00 07:00 Intake Total 400 ml 250 ml Output Total 800 ml Balance 400 ml -550 ml Exam General: WN/WD/NAD, AOx 2-3 HEENT: Unicetric/atraumatic/EOMI (follow commands) NECK: JVD elevated, no thyromegaly Lymph: no lymphadenopathy HEART: regular with no S3, II/ systolic murmur at apex LUNGS: Coarse sounds ABD: soft, NT, ND, +BS : Intact Neuro: non focal SKIN: chronic changes EXT: trace edema, amput Results Result Diagram: 09/06/16 0610 09/06/16 0610 Results 24 hrs Laboratory Tests Test 09/05/16 17:04 09/05/16 20:25 09/06/16 06:10 09/06/16 07:58 Bedside Glucose 136 141 106 White Blood Count 8.7 Red Blood Count 3.81 L Hemoglobin 9.1 L Hematocrit 30.5 L Mean Corpuscular Volume 80.1 L Mean Corpuscular Hemoglobin 23.9 L Mean Corpuscular Hemoglobin Concent 29.8 L Red Cell Distribution Width 17.4 H Platelet Count 203 Mean Platelet Volume 10.2 Neutrophils % 74.5 Lymphocytes % 11.4 L Monocytes % 8.7 Eosinophils % 4.6 Basophils % 0.5 Nucleated Red Blood Cells % 0.0 Neutrophils # 6.5 Lymphocytes # 1.0 Monocytes # 0.8 Eosinophils # 0.4 Basophils # 0.0 Nucleated Red Blood Cells # 0.0 Sodium Level 138 Potassium Level 5.2 H Chloride Level 106 Carbon Dioxide Level 25 Anion Gap 12 Blood Urea Nitrogen 60 H Creatinine 1.96 H Glucose Level 116 Calcium Level 8.5 Magnesium Level 1.8 Test 09/06/16 12:10 Bedside Glucose 178 Medications Medications Current Medications Heparin Sodium (Porcine) (Heparin (5000 Units/0.5 ml)) 5,000 unit BID SC Last administered on 09/06/16 09:13; Admin Dose 5,000 UNIT; Start 09/01/16 at 09:00 Acetaminophen (Tylenol Tab) 650 mg Q6H PRN PO PAIN AND OR ELEVATED TEMP; Start 09/01/16 at 05:00 Insulin Glargine (Lantus) 12 unit DAILY@20 SC Last administered on 09/05/16 20: 33; Admin Dose 12 UNIT; Start 09/01/16 at 20:00 Diagnostic Test (Pha) (Accu-Chek) 1 ea 02 XX Last administered on 09/05/16 02: 00; Admin Dose 1 EA; Start 09/02/16 at 02:00 Ondansetron HCl (Zofran Inj) 4 mg Q6H PRN IV NAUSEA AND/OR VOMITING; Start at 05:00 Miscellaneous Information 1 ea NOTE XX ; Start 09/01/16 at 05:00 Glucose (Glutose) 15 gm Q15M PRN PO DECREASED GLUCOSE; Start 09/01/16 at 05:00 Glucose (Glutose) 22.5 gm Q15M PRN PO DECREASED GLUCOSE; Start 09/01/16 at 05: 00 Dextrose (D50w Syringe) 25 ml Q15M PRN IV DECREASED GLUCOSE; Start 09/01/16 at 05:00 Dextrose (D50w Syringe) 50 ml Q15M PRN IV DECREASED GLUCOSE; Start 09/01/16 at 05:00 Glucagon (Glucagen) 1 mg Q15M PRN IM DECREASED GLUCOSE; Start 09/01/16 at 05:00 Glucose (Glutose) 15 gm Q15M PRN BUCCAL DECREASED GLUCOSE; Start 09/01/16 at 05 :00 Aspirin (Halfprin) 81 mg DAILY PO Last administered on 09/06/16 09:15; Admin Dose 81 MG; Start 09/01/16 at 09:00 Hydroxyzine HCl (Atarax) 25 mg Q6H PRN GTB ITCHING; Start 09/01/16 at 08:30 Docusate Sodium (Colace) 100 mg DAILY PO Last administered on 09/06/16 09:15; Admin Dose 100 MG; Start 09/01/16 at 09:00 Metoprolol Succinate (Toprol Xl) 12.5 mg BID PO Last administered on 09/06/16 09:16; Admin Dose 12.5 MG; Start 09/03/16 at 21:00 Hydralazine HCl (Apresoline) 10 mg Q8 PO Last administered on 09/06/16 13:35; Admin Dose 10 MG; Start 09/03/16 at 22:00 Famotidine (Pepcid) 20 mg DAILY PO Last administered on 09/06/16 09:15; Admin Dose 20 MG; Start 09/05/16 at 17:57 Metolazone (Zaroxolyn) 5 mg BID PO Last administered on 09/06/16 09:15; Admin Dose 5 MG; Start 09/06/16 at 09:00 JACKIE PACHECO MD September 06, 2016 15:55
[2016-09-06] MEDS: INSULIN GLARGINE [LANtus] 3 ML PEN SC SCH (20:53)
[2016-09-07] VITALS (12 sets, daily range): BP systolic 104–133; BP diastolic 59–78; PULSE 72–81; RESP 18–24
[2016-09-07] MEDS: ACCU-CHEK XX SCH (02:00)
[2016-09-07] MEDS: FUROSEMIDE 40 MG INJ IV SCH ×2 (05:32→17:20)
--- NOTE | 2016-09-07 07:56 | CONS ---
Date/Time of Note Date/Time of Note DATE: 09/07/16 TIME: 07:54 Assessment/Plan Assessment/Plan Additional Assessment/Plan 1. CHF is resolving, CXR is pending 2. BP is controlled. 3. CKD has been stable, await labs today 4. Anemia is stable Consultation Date/Type/Reason Admit Date/Time Aug 31, 2016 at 19:32 Type of Consultation: Cardiology Referring Provider: LEE RAHMAN Detailed Summary Respiratory: cough (is intermittent), shortness of breath (wehn laying down flat in bed) Cardiovascular: no complaints, No chest pain Gastrointestinal: no complaints Exam/Review of Systems Vital Signs Vitals Vital Signs Date Time Temp Pulse Resp B/P Pulse Ox O2 Delivery O2 Flow Rate FiO2 09/07/16 04:14 77 09/07/16 04:07 98.7 24 104/76 97 09/06/16 06:06 2.0 09/05/16 07:30 Nasal Cannula Intake and Output 09/06/16 09/06/16 09/07/16 15:00 23:00 07:00 Intake Total 720 ml 650 ml Output Total 900 ml Balance 720 ml -250 ml Exam Neck: No jvd Respiratory: diminished breath sounds (and reduced rales bilat) Cardiovascular: regular rate and rhythm, No S3 Gastrointestinal: soft Extremities: No edema (less sacral edema) Results Result Diagram: 09/06/16 0610 09/06/16 0610 Results 24 hrs Laboratory Tests Test 09/06/16 07:58 09/06/16 12:10 09/06/16 17:17 09/06/16 20:07 Bedside Glucose 106 178 159 149 Test 09/07/16 02:46 09/07/16 07:48 Bedside Glucose 83 80 Medications Medications Current Medications Heparin Sodium (Porcine) (Heparin (5000 Units/0.5 ml)) 5,000 unit BID SC Last administered on 09/06/16 20:52; Admin Dose 5,000 UNIT; Start 09/01/16 at 09:00 Acetaminophen (Tylenol Tab) 650 mg Q6H PRN PO PAIN AND OR ELEVATED TEMP; Start 09/01/16 at 05:00 Insulin Glargine (Lantus) 12 unit DAILY@20 SC Last administered on 09/06/16 20: 53; Admin Dose 12 UNIT; Start 09/01/16 at 20:00 Diagnostic Test (Pha) (Accu-Chek) 1 ea 02 XX Last administered on 09/05/16 02: 00; Admin Dose 1 EA; Start 09/02/16 at 02:00 Ondansetron HCl (Zofran Inj) 4 mg Q6H PRN IV NAUSEA AND/OR VOMITING; Start at 05:00 Miscellaneous Information 1 ea NOTE XX ; Start 09/01/16 at 05:00 Glucose (Glutose) 15 gm Q15M PRN PO DECREASED GLUCOSE; Start 09/01/16 at 05:00 Glucose (Glutose) 22.5 gm Q15M PRN PO DECREASED GLUCOSE; Start 09/01/16 at 05: 00 Dextrose (D50w Syringe) 25 ml Q15M PRN IV DECREASED GLUCOSE; Start 09/01/16 at 05:00 Dextrose (D50w Syringe) 50 ml Q15M PRN IV DECREASED GLUCOSE; Start 09/01/16 at 05:00 Glucagon (Glucagen) 1 mg Q15M PRN IM DECREASED GLUCOSE; Start 09/01/16 at 05:00 Glucose (Glutose) 15 gm Q15M PRN BUCCAL DECREASED GLUCOSE; Start 09/01/16 at 05 :00 Aspirin (Halfprin) 81 mg DAILY PO Last administered on 09/06/16 09:15; Admin Dose 81 MG; Start 09/01/16 at 09:00 Hydroxyzine HCl (Atarax) 25 mg Q6H PRN GTB ITCHING; Start 09/01/16 at 08:30 Docusate Sodium (Colace) 100 mg DAILY PO Last administered on 09/06/16 09:15; Admin Dose 100 MG; Start 09/01/16 at 09:00 Metoprolol Succinate (Toprol Xl) 12.5 mg BID PO Last administered on 09/06/16 09:16; Admin Dose 12.5 MG; Start 09/03/16 at 21:00 Hydralazine HCl (Apresoline) 10 mg Q8 PO Last administered on 09/06/16 22:39; Admin Dose 10 MG; Start 09/03/16 at 22:00 Famotidine (Pepcid) 20 mg DAILY PO Last administered on 09/06/16 09:15; Admin Dose 20 MG; Start 09/05/16 at 17:57 Metolazone (Zaroxolyn) 5 mg BID PO Last administered on 09/06/16t 20:51; Admin Dose 5 MG; Start 09/06/16 at 09:00 JACKIE FROST MD September 07, 2016 07:56
[2016-09-07] MEDS: INSULIN ASPART [NOVOLOG] 3 ML PEN SC SCH ×4 (07:59→20:42)
[2016-09-07 08:08] LABS: ADD SCAN DIFF NO
[2016-09-07 08:31] LABS: BASOPHIL # 0.1 10^3/ul (0.0-0.1); BASOPHILS % 0.7 % (0.0-2.0); EOSINOPHILS # 0.4 10^3/ul (0.0-0.5); EOSINOPHILS % 5.1 % (0.0-7.0); HEMATOCRIT 31.2 % (42.0-52.0); HEMOGLOBIN 9.5 g/dl (14.0-18.0); LYMPHOCYTES # 1.1 10^3/ul (0.8-2.9); LYMPHOCYTES % 12.6 % (15.0-51.0); MEAN CORPUSCULAR HEMOGLOBIN 24.1 pg (29.0-33.0); MEAN CORPUSCULAR HGB CONC 30.4 g/dl (32.0-37.0); MEAN PLATELET VOLUME 10.3 fl (7.4-10.4); MONOCYTE # 0.7 10^3/ul (0.3-0.9); MONOCYTES % 7.9 % (0.0-11.0); NEUTROPHIL # 6.4 10^3/ul (1.6-7.5); NEUTROPHILS % 73.2 % (39.0-77.0); PLATELET COUNT 216 10^3/UL (140-415); RED BLOOD COUNT 3.95 10^6/ul (4.70-6.10); RED CELL DISTRIBUTION WIDTH 17.2 % (11.5-14.5); WHITE BLOOD COUNT 8.7 10^3/ul (4.8-10.8)
[2016-09-07 08:33] LABS: POTASSIUM 5.1 mmol/L (3.5-5.1)
[2016-09-07 08:36] LABS: CREATININE 1.88 mg/dl (0.61-1.24)
[2016-09-07 08:37] LABS: CALCIUM 8.8 mg/dl (8.4-10.2)
[2016-09-07] MEDS: FAMOTIDINE 20 MG TAB PO SCH (08:38)
[2016-09-07] MEDS: METOLAZONE 5 MG TAB PO SCH ×2 (08:39→20:43)
[2016-09-07] MEDS: METOPROLOL (XL) 25 MG TAB PO SCH ×2 (08:39→20:44)
[2016-09-07] MEDS: DOCUSATE SODIUM 100 MG CAP PO SCH (08:39)
[2016-09-07] MEDS: ASPIRIN (EC) 81 MG TAB PO SCH (08:39)
[2016-09-07] MEDS: HEPARIN 5,000 UNIT/0.5 ML VIAL SC SCH ×2 (08:52→20:41)
[2016-09-07] MEDS: SOD FERRIC GLUC COMPLX 125 MG in SOD CHLORIDE 0.9% 100 ML IVPB SCH (09:01)
--- NOTE | 2016-09-07 11:29 | RADRPT ---
PROCEDURE: Chest 1 views. CLINICAL INDICATION: Shortness of breath. TECHNIQUE: AP views of the chest was obtained. COMPARISON: September 03, 2016 FINDINGS: The heart is large. Diffuse interstitial prominence in both lungs is unchanged. Patchy right lower lung infiltrates, combined with small pleural effusion are stable. Patchy left basilar infiltrates and small left pleural effusion are stable. Atelectasis is noted in the left upper lobe. Osseous s tructures are intact. IMPRESSION: Cardiomegaly . Stable diffuse mild interstitial prominence in both lungs. Stable bilateral lower lung infiltrates and small pleural effusions. Atelectasis in the left upper lobe. RPTAT: AA .Buddy Hwang MD, MD Date Time Electronically viewed and signed by .Buddy Hwang MD, on 09/07/2016 11:28 .P/
--- NOTE | 2016-09-07 12:26 | CONS ---
Date/Time of Note Date/Time of Note DATE: 09/07/16 TIME: 12:23 Assessment/Plan Assessment/Plan Chief Complaint/Hosp Course IMPRESSION: 1. Congestive heart failure, systolic, acute on chronic, likely.-negative troponin x 3 2. Cardiomyopathy with severely depressed left ventricular ejection fraction.15 -20% by echo this admit 3. Abnormal electrocardiogram with left bundle branch block pattern; negative troponins greater than 3. 4. Hypertension, under reasonable control. 5. Peripheral vascular disease, status post right above the knee amputation. 6. Renal failure. 7. Hyperkalemia-improved 8. Anemia. 9.Dyslipidemia-LDL 93 HDL 27 Recc: -Tele -serial ecg's -Continue toprol XL -Continue low dose hydralazine afterload reduction as tolerated to improve cardiac output in lieu of ACEI given renal failure at this time -Continue lasix diuresis and follow infection prevention specialist closely and volume status which are both slowly improving -Lexiscan tomorrow if able to lay flat in AM Problems: Consultation Date/Type/Reason Admit Date/Time Aug 31, 2016 at 19:32 Initial Consult Date 09/02/2016 Type of Consultation: Cardiology Reason for Consultation CHF Referring Provider: LEE RAHMAN Exam/Review of Systems Vital Signs Vitals Vital Signs Date Time Temp Pulse Resp B/P Pulse Ox O2 Delivery O2 Flow Rate FiO2 09/07/16 11:53 98.4 76 18 107/59 95 09/06/16 06:06 2.0 09/05/16 07:30 Nasal Cannula Intake and Output 09/06/16 09/06/16 09/07/16 15:00 23:00 07:00 Intake Total 720 ml 650 ml Output Total 900 ml Balance 720 ml -250 ml Exam Review of Systems: CONSTITUTIONAL: No fevers, chills. PULMONARY: mild sob CARDIOVASCULAR: No chest pain/palpitations GASTROINTESTINAL: No nausea/vomiting. GENITOURINARY: No hematuria/dysuria. MUSCULOSKELETAL: No myagias/arthalgias. PSYCHIATRIC: The patient denies depression. NEUROLOGIC: No weakness Constitutional: alert Psych: no complaints Head: normocephalic ENMT: mucosa pink and moist Neck: jvd (9 cm water), supple Respiratory: diminished breath sounds Cardiovascular: regular rate and rhythm Gastrointestinal: non-tender, soft Musculoskeletal: muscle tone Extremities: other (no focal deficits) Neurological: other (No focal deficits) Results Result Diagram: 09/07/16 0649 09/07/16 0649 Results 24 hrs Laboratory Tests Test 09/06/16 17:17 09/06/16 20:07 09/07/16 02:46 09/07/16 06:49 Bedside Glucose 159 149 83 White Blood Count 8.7 Red Blood Count 3.95 L Hemoglobin 9.5 L Hematocrit 31.2 L Mean Corpuscular Volume 79.0 L Mean Corpuscular Hemoglobin 24.1 L Mean Corpuscular Hemoglobin Concent 30.4 L Red Cell Distribution Width 17.2 H Platelet Count 216 Mean Platelet Volume 10.3 Neutrophils % 73.2 Lymphocytes % 12.6 L Monocytes % 7.9 Eosinophils % 5.1 Basophils % 0.7 Nucleated Red Blood Cells % 0.0 Neutrophils # 6.4 Lymphocytes # 1.1 Monocytes # 0.7 Eosinophils # 0.4 Basophils # 0.1 Nucleated Red Blood Cells # 0.0 Sodium Level 139 Potassium Level 5.1 Chloride Level 102 Carbon Dioxide Level 25 Anion Gap 17 H Blood Urea Nitrogen 62 H Creatinine 1.88 H Glucose Level 77 Calcium Level 8.8 Phosphorus Level 4.3 Magnesium Level 1.8 Test 09/07/16 07:48 09/07/16 12:06 Bedside Glucose 80 154 Medications Medications Current Medications Heparin Sodium (Porcine) (Heparin (5000 Units/0.5 ml)) 5,000 unit BID SC Last administered on 09/07/16 08:52; Admin Dose 5,000 UNIT; Start 09/01/16 at 09:00 Acetaminophen (Tylenol Tab) 650 mg Q6H PRN PO PAIN AND OR ELEVATED TEMP; Start 09/01/16 at 05:00 Insulin Glargine (Lantus) 12 unit DAILY@20 SC Last administered on 09/06/16 20: 53; Admin Dose 12 UNIT; Start 09/01/16 at 20:00 Diagnostic Test (Pha) (Accu-Chek) 1 ea 02 XX Last administered on 09/05/16 02: 00; Admin Dose 1 EA; Start 09/02/16 at 02:00 Ondansetron HCl (Zofran Inj) 4 mg Q6H PRN IV NAUSEA AND/OR VOMITING; Start at 05:00 Miscellaneous Information 1 ea NOTE XX ; Start 09/01/16 at 05:00 Glucose (Glutose) 15 gm Q15M PRN PO DECREASED GLUCOSE; Start 09/01/16 at 05:00 Glucose (Glutose) 22.5 gm Q15M PRN PO DECREASED GLUCOSE; Start 09/01/16 at 05: 00 Dextrose (D50w Syringe) 25 ml Q15M PRN IV DECREASED GLUCOSE; Start 09/01/16 at 05:00 Dextrose (D50w Syringe) 50 ml Q15M PRN IV DECREASED GLUCOSE; Start 09/01/16 at 05:00 Glucagon (Glucagen) 1 mg Q15M PRN IM DECREASED GLUCOSE; Start 09/01/16 at 05:00 Glucose (Glutose) 15 gm Q15M PRN BUCCAL DECREASED GLUCOSE; Start 09/01/16 at 05 :00 Aspirin (Halfprin) 81 mg DAILY PO Last administered on 09/07/16 08:39; Admin Dose 81 MG; Start 09/01/16 at 09:00 Hydroxyzine HCl (Atarax) 25 mg Q6H PRN GTB ITCHING; Start 09/01/16 at 08:30 Docusate Sodium (Colace) 100 mg DAILY PO Last administered on 09/07/16 08:39; Admin Dose 100 MG; Start 09/01/16 at 09:00 Metoprolol Succinate (Toprol Xl) 12.5 mg BID PO Last administered on 09/07/16 08:39; Admin Dose 12.5 MG; Start 09/03/16 at 21:00 Hydralazine HCl (Apresoline) 10 mg Q8 PO Last administered on 09/06/16 22:39; Admin Dose 10 MG; Start 09/03/16 at 22:00 Famotidine (Pepcid) 20 mg DAILY PO Last administered on 09/07/16 08:38; Admin Dose 20 MG; Start 09/05/16 at 17:57 Metolazone 5 mg 5 mg BID PO Last administered on 09/07/16 08:39; Admin Dose 5 MG; Start 09/06/16 at 09:00 Ferric Sodium Gluconate Complex/ Sodium Chloride (Ferrlecit/NS) 110 ml @ 110 mls/hr Q24H IVPB Last administered on 09/07/16 09:01; Admin Dose 110 MLS/HR; Start 09/07/16 at 09:00; Stop 09/11/16 at 09:59 Epoetin Rio (Epogen (Non Esrd/Non Oncology)) 10,000 units MoWeFr@17 SC ; Start 09/07/16 at 17:00 ELANA LARSON September 07, 2016 12:26
--- NOTE | 2016-09-07 12:28 | PN ---
Date/Time of Note Date/Time of Note DATE: 09/07/16 TIME: 12:25 Assessment/Plan VTE Prophylaxis VTE Prophylaxis Intervention: heparin Lines/Catheters IV C[facility]ter Type (from [facility]): [facility] Urinary Cath still in place: No Assessment/Plan Chief Complaint/Hosp Course 1. Acute respiratory failure. Hypoxic. Secondary to congestive heart failure exacerbation. Systolic dysfunction. Continue supplemental oxygen and inhaled bronchodilators. 2. Cardiomyopathy with ejection fraction of 15% to 20%. Continue cardiac medications including beta blockers and hydralazine. The patient is not an ideal candidate for JACQUELINE inhibitors because of underlying renal function. 3. Acute on chronic congestive heart failure exacerbation. Systolic dysfunction. Continue on diuretics as per nephrology. 4. Acute on chronic kidney disease. Continue to monitor BUN and creatinine closely. Nephrology following. 5. Essential hypertension. Continue antihypertensives. Blood pressure slightly on the lower side. 6. History of coronary artery disease. Continue antiplatelet therapy. 7. Diabetes mellitus type 2. Hemoglobin A1c 5.4. Continue sliding scale insulin. Blood sugars fairly good control. 8. Dyslipidemia. Reinforced low cholesterol diet. 9. Hyperkalemia, most probably secondary to underlying worsening renal function , improving. 10. Peripheral vascular disease. Continue antiplatelet therapy. 11. Fluid, electrolytes and nutrition. Carbohydrate controlled, low cholesterol diet. 12 Deep venous thrombosis prophylaxis, subcutaneous heparin. 13. Gastrointestinal prophylaxis. Histamine 2 receptor blockers. PLAN: 1. Continue current management. 2. Continue to monitor renal function closely. 3. Call hematology consult because of monoclonal immunoglobulin evident in urine and blood. Case discussed with Dr. Fuentes. Problems: Subjective 24 Hr Interval Summary Free Text/Dictation Vital signs stable. Complains of orthopnea. Exam/Review of Systems Vital Signs Vitals Vital Signs Date Time Temp Pulse Resp B/P Pulse Ox O2 Delivery O2 Flow Rate FiO2 09/07/16 11:53 98.4 76 18 107/59 95 09/06/16 06:06 2.0 09/05/16 07:30 Nasal Cannula Intake and Output 09/06/16 09/06/16 09/07/16 15:00 23:00 07:00 Intake Total 720 ml 650 ml Output Total 900 ml Balance 720 ml -250 ml Exam GENERAL: This is a 65-year-old male sitting in bed in no apparent distress. HEENT: Head normocephalic and atraumatic. Eyes: Anicteric sclerae. Conjunctivae clear. ENT: Nasal septum is midline. Oral mucosa is moist. NECK: Supple. No JVD noticed. RESPIRATORY: Bilaterally diminished breath sounds. Right basilar rales. CARDIAC: Regular rate and rhythm. S1 and S2 heard. GENITOURINARY: Deferred. EXTREMITIES: No cyanosis, no clubbing. Right-sided below knee amputation. NEUROLOGIC: The patient is awake, alert and oriented. Cranial nerves are grossly intact. Results Result Diagram: 09/07/16 0649 09/07/16 0649 Results 24 hrs Laboratory Tests Test 09/06/16 17:17 09/06/16 20:07 09/07/16 02:46 09/07/16 06:49 Bedside Glucose 159 149 83 White Blood Count 8.7 Red Blood Count 3.95 L Hemoglobin 9.5 L Hematocrit 31.2 L Mean Corpuscular Volume 79.0 L Mean Corpuscular Hemoglobin 24.1 L Mean Corpuscular Hemoglobin Concent 30.4 L Red Cell Distribution Width 17.2 H Platelet Count 216 Mean Platelet Volume 10.3 Neutrophils % 73.2 Lymphocytes % 12.6 L Monocytes % 7.9 Eosinophils % 5.1 Basophils % 0.7 Nucleated Red Blood Cells % 0.0 Neutrophils # 6.4 Lymphocytes # 1.1 Monocytes # 0.7 Eosinophils # 0.4 Basophils # 0.1 Nucleated Red Blood Cells # 0.0 Sodium Level 139 Potassium Level 5.1 Chloride Level 102 Carbon Dioxide Level 25 Anion Gap 17 H Blood Urea Nitrogen 62 H Creatinine 1.88 H Glucose Level 77 Calcium Level 8.8 Phosphorus Level 4.3 Magnesium Level 1.8 Test 09/07/16 07:48 09/07/16 12:06 Bedside Glucose 80 154 Medications Medications Current Medications Heparin Sodium (Porcine) (Heparin (5000 Units/0.5 ml)) 5,000 unit BID SC Last administered on 09/07/16 08:52; Admin Dose 5,000 UNIT; Start 09/01/16 at 09:00 Acetaminophen (Tylenol Tab) 650 mg Q6H PRN PO PAIN AND OR ELEVATED TEMP; Start 09/01/16 at 05:00 Insulin Glargine (Lantus) 12 unit DAILY@20 SC Last administered on 09/06/16 20: 53; Admin Dose 12 UNIT; Start 09/01/16 at 20:00 Diagnostic Test (Pha) (Accu-Chek) 1 ea 02 XX Last administered on 09/05/16 02: 00; Admin Dose 1 EA; Start 09/02/16 at 02:00 Ondansetron HCl (Zofran Inj) 4 mg Q6H PRN IV NAUSEA AND/OR VOMITING; Start at 05:00 Miscellaneous Information 1 ea NOTE XX ; Start 09/01/16 at 05:00 Glucose (Glutose) 15 gm Q15M PRN PO DECREASED GLUCOSE; Start 09/01/16 at 05:00 Glucose (Glutose) 22.5 gm Q15M PRN PO DECREASED GLUCOSE; Start 09/01/16 at 05: 00 Dextrose (D50w Syringe) 25 ml Q15M PRN IV DECREASED GLUCOSE; Start 09/01/16 at 05:00 Dextrose (D50w Syringe) 50 ml Q15M PRN IV DECREASED GLUCOSE; Start 09/01/16 at 05:00 Glucagon (Glucagen) 1 mg Q15M PRN IM DECREASED GLUCOSE; Start 09/01/16 at 05:00 Glucose (Glutose) 15 gm Q15M PRN BUCCAL DECREASED GLUCOSE; Start 09/01/16 at 05 :00 Aspirin (Halfprin) 81 mg DAILY PO Last administered on 09/07/16 08:39; Admin Dose 81 MG; Start 09/01/16 at 09:00 Hydroxyzine HCl (Atarax) 25 mg Q6H PRN GTB ITCHING; Start 09/01/16 at 08:30 Docusate Sodium (Colace) 100 mg DAILY PO Last administered on 09/07/16 08:39; Admin Dose 100 MG; Start 09/01/16 at 09:00 Metoprolol Succinate (Toprol Xl) 12.5 mg BID PO Last administered on 09/07/16 08:39; Admin Dose 12.5 MG; Start 09/03/16 at 21:00 Hydralazine HCl (Apresoline) 10 mg Q8 PO Last administered on 09/06/16 22:39; Admin Dose 10 MG; Start 09/03/16 at 22:00 Famotidine (Pepcid) 20 mg DAILY PO Last administered on 09/07/16 08:38; Admin Dose 20 MG; Start 09/05/16 at 17:57 Metolazone 5 mg 5 mg BID PO Last administered on 09/07/16 08:39; Admin Dose 5 MG; Start 09/06/16 at 09:00 Ferric Sodium Gluconate Complex/ Sodium Chloride (Ferrlecit/NS) 110 ml @ 110 mls/hr Q24H IVPB Last administered on 09/07/16 09:01; Admin Dose 110 MLS/HR; Start 09/07/16 at 09:00; Stop 09/11/16 at 09:59 Epoetin Rio (Epogen (Non Esrd/Non Oncology)) 10,000 units MoWeFr@17 SC ; Start 09/07/16 at 17:00 RICKY CHUNG NP September 07, 2016 12:28
[2016-09-07] MEDS ORDERED: SOD FERRIC GLUC COMPLX 125 MG in SOD CHLORIDE 0.9% 100 ML IVPB SCH (15:00)
--- NOTE | 2016-09-07 15:06 | CONS ---
Date/Time of Note Date/Time of Note DATE: 09/07/16 TIME: 14:48 Assessment/Plan Assessment/Plan Chief Complaint/Hosp Course 65 yo male with CKD found with faint IgA (kappa) monoclonal immunoglobulin detected on serum and urine immunofixation. Although monoclonal gammopathy can be seen in CKD it is reasonable to rule out multiple myeloma or smoldering myeloma. We will first order the SPEP to see if there is a clinically significant amount of monoclonal protein. We will also order quantitative immunoglobulins and [place]/ lambda Light chains. # Concern for monoclonal gammopathy -f/u SPEP. QUIGS, Free [place]/ Lambda LC -if the above labs are abnormal, we will need to pursue a bone marrow bx to confirm the presence of multiple myeloma. # Anemia - this is likely secondary to iron deficiency as well as CKD -cont Ferrlecit as ordered -Epo level ordered to see if patient would benefit from procrit. # CHF - ER 20% -management per cardiology # CKD -management per nephrology Problems: Consultation Date/Type/Reason Admit Date/Time Aug 31, 2016 at 19:32 Date of Consultation: September 07, 2016 Type of Consultation: hematology Reason for Consultation monoclonal gammopathy Referring Provider: RICKY CHUNG NP Hx of Present Illness 65-year-old male with a history of diabetes, CHF EF 15-20%, right above knee amputation, probable old NE in [place] a few years ago, peripheral neuropathy, diabetes, and hypertension who presented to the emergency department with shortness of breath. The symptoms have been progressively getting worse for over a week now. As part of the workup for CKD patient was found to have a A faint IgA kappa monoclonal immunoglobulin with faint monoclonal free kappa light chains detected on SPEP as well as A faint IgA (kappa) monoclonal immunoglobulin on urine TONY. Respiratory: cough (is intermittent), shortness of breath (wehn laying down flat in bed) Cardiovascular: no complaints, No chest pain Gastrointestinal: no complaints Psychological: no complaints Past Medical History diabetes coronary artery disease CKD peripheral vascular disease Past Surgical History Right above-knee amputation. Family History Significant Family History: no pertinent family hx Social History Alcohol Use: none Smoking Status: Never smoker Drug Use: none Exam/Review of Systems Vital Signs Vitals Vital Signs Date Time Temp Pulse Resp B/P Pulse Ox O2 Delivery O2 Flow Rate FiO2 09/07/16 12:34 78 09/07/16 11:53 98.4 18 107/59 95 09/06/16 06:06 2.0 09/05/16 07:30 Nasal Cannula Intake and Output 09/06/16 09/06/16 09/07/16 15:00 23:00 07:00 Intake Total 720 ml 650 ml Output Total 900 ml Balance 720 ml -250 ml Exam Constitutional: alert, oriented Psych: no complaints Head: normocephalic Eyes: nl conjunctiva ENMT: nl external ears & nose, nl lips & teeth Neck: non-tender, supple Respiratory: clear to auscultation, normal air movement Cardiovascular: regular rate and rhythm Gastrointestinal: soft Musculoskeletal: nl extremities to inspection, nl gait and stance Extremities: normal pulses, other (s/p amputation) Results Result Diagram: 09/07/1649 09/07/16 0649 Results 24 hrs Laboratory Tests Test 09/06/16 17:17 09/06/16 20:07 09/07/16 02:46 09/07/16 06:49 Bedside Glucose 159 149 83 White Blood Count 8.7 Red Blood Count 3.95 L Hemoglobin 9.5 L Hematocrit 31.2 L Mean Corpuscular Volume 79.0 L Mean Corpuscular Hemoglobin 24.1 L Mean Corpuscular Hemoglobin Concent 30.4 L Red Cell Distribution Width 17.2 H Platelet Count 216 Mean Platelet Volume 10.3 Neutrophils % 73.2 Lymphocytes % 12.6 L Monocytes % 7.9 Eosinophils % 5.1 Basophils % 0.7 Nucleated Red Blood Cells % 0.0 Neutrophils # 6.4 Lymphocytes # 1.1 Monocytes # 0.7 Eosinophils # 0.4 Basophils # 0.1 Nucleated Red Blood Cells # 0.0 Sodium Level 139 Potassium Level 5.1 Chloride Level 102 Carbon Dioxide Level 25 Anion Gap 17 H Blood Urea Nitrogen 62 H Creatinine 1.88 H Glucose Level 77 Calcium Level 8.8 Phosphorus Level 4.3 Magnesium Level 1.8 Test 09/07/16 07:48 09/07/16 12:06 Bedside Glucose 80 154 Medications Medications Current Medications Heparin Sodium (Porcine) (Heparin (5000 Units/0.5 ml)) 5,000 unit BID SC Last administered on 09/07/16t 08:52; Admin Dose 5,000 UNIT; Start 09/01/16 at 09:00 Acetaminophen (Tylenol Tab) 650 mg Q6H PRN PO PAIN AND OR ELEVATED TEMP; Start 09/01/16 at 05:00 Insulin Glargine (Lantus) 12 unit DAILY@20 SC Last administered on 09/06/16 20: 53; Admin Dose 12 UNIT; Start 09/01/16 at 20:00 Diagnostic Test (Pha) (Accu-Chek) 1 ea 02 XX Last administered on 09/05/16 02: 00; Admin Dose 1 EA; Start 09/02/16 at 02:00 Ondansetron HCl (Zofran Inj) 4 mg Q6H PRN IV NAUSEA AND/OR VOMITING; Start at 05:00 Miscellaneous Information 1 ea NOTE XX ; Start 09/01/16 at 05:00 Glucose (Glutose) 15 gm Q15M PRN PO DECREASED GLUCOSE; Start 09/01/16 at 05:00 Glucose (Glutose) 22.5 gm Q15M PRN PO DECREASED GLUCOSE; Start 09/01/16 at 05: 00 Dextrose (D50w Syringe) 25 ml Q15M PRN IV DECREASED GLUCOSE; Start 09/01/16 at 05:00 Dextrose (D50w Syringe) 50 ml Q15M PRN IV DECREASED GLUCOSE; Start 09/01/16 at 05:00 Glucagon (Glucagen) 1 mg Q15M PRN IM DECREASED GLUCOSE; Start 09/01/16 at 05:00 Glucose (Glutose) 15 gm Q15M PRN BUCCAL DECREASED GLUCOSE; Start 09/01/16 at 05 :00 Aspirin (Halfprin) 81 mg DAILY PO Last administered on 09/07/16 08:39; Admin Dose 81 MG; Start 09/01/16 at 09:00 Hydroxyzine HCl (Atarax) 25 mg Q6H PRN GTB ITCHING; Start 09/01/16 at 08:30 Docusate Sodium (Colace) 100 mg DAILY PO Last administered on 09/07/16 08:39; Admin Dose 100 MG; Start 09/01/16 at 09:00 Metoprolol Succinate (Toprol Xl) 12.5 mg BID PO Last administered on 09/07/16 08:39; Admin Dose 12.5 MG; Start 09/03/16 at 21:00 Hydralazine HCl (Apresoline) 10 mg Q8 PO Last administered on 09/07/16 14:13; Admin Dose 10 MG; Start 09/03/16 at 22:00 Famotidine (Pepcid) 20 mg DAILY PO Last administered on 09/07/16 08:38; Admin Dose 20 MG; Start 09/05/16 at 17:57 Metolazone 5 mg 5 mg BID PO Last administered on 09/07/16 08:39; Admin Dose 5 MG; Start 09/06/16 at 09:00 Ferric Sodium Gluconate Complex/ Sodium Chloride (Ferrlecit/NS) 110 ml @ 110 mls/hr Q24H IVPB Last administered on 09/07/16 09:01; Admin Dose 110 MLS/HR; Start 09/07/16 at 09:00; Stop 09/11/16 at 09:59 Epoetin Rio (Epogen (Non Esrd/Non Oncology)) 10,000 units MoWeFr@17 SC ; Start 09/07/16 at 17:00 CRUZ NUÑEZ M.D. September 07, 2016 14:58
[2016-09-07 17:04] LABS: IMMUNOGLOBULIN A 749 mg/dl (70-400); IMMUNOGLOBULIN G 1760 mg/dl (700-1600); IMMUNOGLOBULIN M 83 mg/dl (40-230)
[2016-09-07] MEDS: EPOETIN 10000 UNITS/ML (NON ESRD/NON ONCOLOGY) SC SCH (17:20)
[2016-09-07] MEDS: INSULIN GLARGINE [LANtus] 3 ML PEN SC SCH (20:42)
[2016-09-08] VITALS (11 sets, daily range): BP systolic 98–130; BP diastolic 54–73; PULSE 75–78; RESP 16–19
[2016-09-08] MEDS: ACCU-CHEK XX SCH (02:00)
[2016-09-08] MEDS: FUROSEMIDE 40 MG INJ IV SCH ×2 (05:33→17:46)
[2016-09-08 07:35] LABS: ADD SCAN DIFF NO
[2016-09-08 07:40] LABS: BASOPHIL # 0.1 10^3/ul (0.0-0.1); BASOPHILS % 0.6 % (0.0-2.0); EOSINOPHILS # 0.4 10^3/ul (0.0-0.5); EOSINOPHILS % 3.9 % (0.0-7.0); HEMATOCRIT 31.3 % (42.0-52.0); HEMOGLOBIN 9.7 g/dl (14.0-18.0); LYMPHOCYTES % 9.7 % (15.0-51.0); MEAN CORPUSCULAR HEMOGLOBIN 24.6 pg (29.0-33.0); MEAN CORPUSCULAR VOLUME 79.2 fl (82.0-101.0); MEAN PLATELET VOLUME 9.9 fl (7.4-10.4); MONOCYTE # 0.7 10^3/ul (0.3-0.9); MONOCYTES % 7.6 % (0.0-11.0); NEUTROPHIL # 7.6 10^3/ul (1.6-7.5); NEUTROPHILS % 77.6 % (39.0-77.0); PLATELET COUNT 226 10^3/UL (140-415); RED BLOOD COUNT 3.95 10^6/ul (4.70-6.10); RED CELL DISTRIBUTION WIDTH 17.1 % (11.5-14.5); WHITE BLOOD COUNT 9.8 10^3/ul (4.8-10.8)
[2016-09-08 07:51] LABS: POTASSIUM 5.8 mmol/L (3.5-5.1)
[2016-09-08 07:54] LABS: CREATININE 2.02 mg/dl (0.61-1.24)
[2016-09-08] MEDS: INSULIN ASPART [NOVOLOG] 3 ML PEN SC SCH ×4 (08:00→21:06)
[2016-09-08] MEDS: METOLAZONE 5 MG TAB PO SCH ×2 (08:58→21:03)
[2016-09-08] MEDS: ASPIRIN (EC) 81 MG TAB PO SCH (08:58)
[2016-09-08] MEDS: DOCUSATE SODIUM 100 MG CAP PO SCH (08:58)
[2016-09-08] MEDS: FAMOTIDINE 20 MG TAB PO SCH (08:59)
[2016-09-08] MEDS: HEPARIN 5,000 UNIT/0.5 ML VIAL SC SCH ×2 (09:07→21:06)
[2016-09-08] MEDS ORDERED: REGADENOSON 0.4 MG/5 ML SYG ONE (11:10)
--- NOTE | 2016-09-08 11:39 | CONS ---
Date/Time of Note Date/Time of Note DATE: 09/08/16 TIME: 11:37 Assessment/Plan Assessment/Plan Additional Assessment/Plan 1. Renal insuff is stable, will cont to diurese and reduce 1-2 d 2. Monoclonal protein is being pursued, heme eval noted 3. CHF is resolving, cxr noted 4. Elev K noted, kayexelate is ordered and repeat k later today Consultation Date/Type/Reason Admit Date/Time Aug 31, 2016 at 19:32 Type of Consultation: hematology Referring Provider: RICKY CHUNG EMERGENCY DEPARTMENT DIRECTOR Detailed Summary Respiratory: shortness of breath (is less ) Cardiovascular: No chest pain Gastrointestinal: no complaints Genitourinary: no complaints Exam/Review of Systems Vital Signs Vitals Vital Signs Date Time Temp Pulse Resp B/P Pulse Ox O2 Delivery O2 Flow Rate FiO2 09/08/16 10:00 Nasal Cannula 2.0 09/08/16 08:12 77 09/08/16 07:59 98.6 16 130/73 98 Intake and Output 09/07/16 09/07/16 09/08/16 15:00 23:00 07:00 Intake Total 110 ml 720 ml Output Total 2000 ml Balance 110 ml -1280 ml Exam Neck: No jvd Respiratory: clear to auscultation Cardiovascular: regular rate and rhythm Gastrointestinal: soft Extremities: No edema (of legs, less sacral edema) Results Result Diagram: 09/08/16 0655 09/08/16 0655 Results 24 hrs Laboratory Tests Test 09/07/16 12:06 09/07/16 15:50 09/07/16 17:10 09/07/16 20:06 Bedside Glucose 154 141 168 Immunoglobulin A 749 H Immunoglobulin G 1760 H Immunoglobulin M 83 Test 09/08/16 02:00 09/08/16 06:55 09/08/16 08:03 Bedside Glucose 130 94 White Blood Count 9.8 Red Blood Count 3.95 L Hemoglobin 9.7 L Hematocrit 31.3 L Mean Corpuscular Volume 79.2 L Mean Corpuscular Hemoglobin 24.6 L Mean Corpuscular Hemoglobin Concent 31.0 L Red Cell Distribution Width 17.1 H Platelet Count 226 Mean Platelet Volume 9.9 Neutrophils % 77.6 H Lymphocytes % 9.7 L Monocytes % 7.6 Eosinophils % 3.9 Basophils % 0.6 Nucleated Red Blood Cells % 0.0 Neutrophils # 7.6 H Lymphocytes # 1.0 Monocytes # 0.7 Eosinophils # 0.4 Basophils # 0.1 Nucleated Red Blood Cells # 0.0 Sodium Level 138 Potassium Level 5.8 H Chloride Level 98 Carbon Dioxide Level 28 Anion Gap 18 H Blood Urea Nitrogen 64 H Creatinine 2.02 H Glucose Level 94 Calcium Level 9.0 Magnesium Level 1.7 Medications Medications Current Medications Heparin Sodium (Porcine) (Heparin (5000 Units/0.5 ml)) 5,000 unit BID SC Last administered on 09/08/16 09:07; Admin Dose 5,000 UNIT; Start 09/01/16 at 09:00 Acetaminophen (Tylenol Tab) 650 mg Q6H PRN PO PAIN AND OR ELEVATED TEMP; Start 09/01/16 at 05:00 Insulin Glargine (Lantus) 12 unit DAILY@20 SC Last administered on 09/07/16 20: 42; Admin Dose 12 UNIT; Start 09/01/16 at 20:00 Diagnostic Test (Pha) (Accu-Chek) 1 ea 02 XX Last administered on 09/05/16 02: 00; Admin Dose 1 EA; Start 09/02/16 at 02:00 Ondansetron HCl (Zofran Inj) 4 mg Q6H PRN IV NAUSEA AND/OR VOMITING; Start at 05:00 Miscellaneous Information 1 ea NOTE XX ; Start 09/01/16 at 05:00 Glucose (Glutose) 15 gm Q15M PRN PO DECREASED GLUCOSE; Start 09/01/16 at 05:00 Glucose (Glutose) 22.5 gm Q15M PRN PO DECREASED GLUCOSE; Start 09/01/16 at 05: 00 Dextrose (D50w Syringe) 25 ml Q15M PRN IV DECREASED GLUCOSE; Start 09/01/16 at 05:00 Dextrose (D50w Syringe) 50 ml Q15M PRN IV DECREASED GLUCOSE; Start 09/01/16 at 05:00 Glucagon (Glucagen) 1 mg Q15M PRN IM DECREASED GLUCOSE; Start 09/01/16 at 05:00 Glucose (Glutose) 15 gm Q15M PRN BUCCAL DECREASED GLUCOSE; Start 09/01/16 at 05 :00 Aspirin (Halfprin) 81 mg DAILY PO Last administered on 09/08/16 08:58; Admin Dose 81 MG; Start 09/01/16 at 09:00 Hydroxyzine HCl (Atarax) 25 mg Q6H PRN GTB ITCHING; Start 09/01/16 at 08:30 Docusate Sodium (Colace) 100 mg DAILY PO Last administered on 09/08/16 08:58; Admin Dose 100 MG; Start 09/01/16 at 09:00 Metoprolol Succinate (Toprol Xl) 12.5 mg BID PO Last administered on 09/07/16 20:44; Admin Dose 12.5 MG; Start 09/03/16 at 21:00 Hydralazine HCl (Apresoline) 10 mg Q8 PO Last administered on 09/08/16 05:31; Admin Dose 10 MG; Start 09/03/16 at 22:00 Famotidine (Pepcid) 20 mg DAILY PO Last administered on 09/08/16 08:59; Admin Dose 20 MG; Start 09/05/16 at 17:57 Metolazone 5 mg 5 mg BID PO Last administered on 09/08/16 08:58; Admin Dose 5 MG; Start 09/06/16 at 09:00 Ferric Sodium Gluconate Complex/ Sodium Chloride (Ferrlecit/NS) 110 ml @ 110 mls/hr Q24H IVPB Last administered on 09/07/16 09:01; Admin Dose 110 MLS/HR; Start 09/07/16 at 09:00; Stop 09/11/16 at 09:59 Epoetin Rio (Epogen (Non Esrd/Non Oncology)) 10,000 units MoWeFr@17 SC Last administered on 09/07/16 17:20; Admin Dose 10,000 UNITS; Start 09/07/16 at 17:00 JAKCIE FROST MD September 08, 2016 11:39
--- NOTE | 2016-09-08 11:59 | CONS ---
Date/Time of Note Date/Time of Note DATE: 09/08/16 TIME: 11:55 Assessment/Plan Assessment/Plan Chief Complaint/Hosp Course IMPRESSION: 1. Congestive heart failure, systolic, acute on chronic, likely.-negative troponin x 3 2. Cardiomyopathy with severely depressed left ventricular ejection fraction.15 -20% by echo this admit 3. Abnormal electrocardiogram with left bundle branch block pattern; negative troponins greater than 3. 4. Hypertension, under reasonable control. 5. Peripheral vascular disease, status post right above the knee amputation. 6. 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 Hyperkalemia-recurrent today 8. Anemia. 9.Dyslipidemia-LDL 93 HDL 27 10. Monoclonal gammopathy Recc: -Tele -serial ecg's -Continue toprol XL -Continue low dose hydralazine afterload reduction as tolerated to improve cardiac output in lieu of ACEI given renal failure at this time -Continue lasix diuresis and follow sound technician supervisor closely and volume status which is slowly improving -Lexiscan stress today to assess for territory at risk/ischemia Problems: Consultation Date/Type/Reason Admit Date/Time Aug 31, 2016 at 19:32 Initial Consult Date 09/02/2016 Type of Consultation: Cardiology Reason for Consultation CHF/cardiomyopathy Referring Provider: RICKY CHUNG VP CLIENT SERVICES Exam/Review of Systems Vital Signs Vitals Vital Signs Date Time Temp Pulse Resp B/P Pulse Ox O2 Delivery O2 Flow Rate FiO2 09/08/16 10:00 Nasal Cannula 2.0 09/08/16 08:12 77 09/08/16 07:59 98.6 16 130/73 98 Intake and Output 09/07/16 09/07/16 09/08/16 15:00 23:00 07:00 Intake Total 110 ml 720 ml Output Total 2000 ml Balance 110 ml -1280 ml Exam Review of Systems: CONSTITUTIONAL: No fevers, chills. PULMONARY: ongoing sob CARDIOVASCULAR: No chest pain/palpitations GASTROINTESTINAL: No nausea/vomiting. GENITOURINARY: No hematuria/dysuria. MUSCULOSKELETAL: No myagias/arthalgias. PSYCHIATRIC: The patient denies depression. NEUROLOGIC: No weakness Constitutional: alert Psych: no complaints Head: normocephalic ENMT: mucosa pink and moist Neck: jvd (9 cm water), supple Respiratory: diminished breath sounds (at bases/B) Cardiovascular: regular rate and rhythm Gastrointestinal: non-tender, soft Musculoskeletal: muscle weakness (generalized) Extremities: other (s/p RLE amputation, LLE with edema) Neurological: lethargic Results Result Diagram: 09/08/16 0655 09/08/16 0655 Results 24 hrs Laboratory Tests Test 09/07/16 12:06 09/07/16 15:50 09/07/16 17:10 09/07/16 20:06 Bedside Glucose 154 141 168 Immunoglobulin A 749 H Immunoglobulin G 1760 H Immunoglobulin M 83 Test 09/08/16 02:00 09/08/16 06:55 09/08/16 08:03 Bedside Glucose 130 94 White Blood Count 9.8 Red Blood Count 3.95 L Hemoglobin 9.7 L Hematocrit 31.3 L Mean Corpuscular Volume 79.2 L Mean Corpuscular Hemoglobin 24.6 L Mean Corpuscular Hemoglobin Concent 31.0 L Red Cell Distribution Width 17.1 H Platelet Count 226 Mean Platelet Volume 9.9 Neutrophils % 77.6 H Lymphocytes % 9.7 L Monocytes % 7.6 Eosinophils % 3.9 Basophils % 0.6 Nucleated Red Blood Cells % 0.0 Neutrophils # 7.6 H Lymphocytes # 1.0 Monocytes # 0.7 Eosinophils # 0.4 Basophils # 0.1 Nucleated Red Blood Cells # 0.0 Sodium Level 138 Potassium Level 5.8 H Chloride Level 98 Carbon Dioxide Level 28 Anion Gap 18 H Blood Urea Nitrogen 64 H Creatinine 2.02 H Glucose Level 94 Calcium Level 9.0 Magnesium Level 1.7 Medications Medications Current Medications Heparin Sodium (Porcine) (Heparin (5000 Units/0.5 ml)) 5,000 unit BID SC Last administered on 09/08/16 09:07; Admin Dose 5,000 UNIT; Start 09/01/16 at 09:00 Acetaminophen (Tylenol Tab) 650 mg Q6H PRN PO PAIN AND OR ELEVATED TEMP; Start 09/01/16 at 05:00 Insulin Glargine (Lantus) 12 unit DAILY@20 SC Last administered on 09/07/16 20: 42; Admin Dose 12 UNIT; Start 09/01/16 at 20:00 Diagnostic Test (Pha) (Accu-Chek) 1 ea 02 XX Last administered on 09/05/16 02: 00; Admin Dose 1 EA; Start 09/02/16 at 02:00 Ondansetron HCl (Zofran Inj) 4 mg Q6H PRN IV NAUSEA AND/OR VOMITING; Start at 05:00 Miscellaneous Information 1 ea NOTE XX ; Start 09/01/16 at 05:00 Glucose (Glutose) 15 gm Q15M PRN PO DECREASED GLUCOSE; Start 09/01/16 at 05:00 Glucose (Glutose) 22.5 gm Q15M PRN PO DECREASED GLUCOSE; Start 09/01/16 at 05: 00 Dextrose (D50w Syringe) 25 ml Q15M PRN IV DECREASED GLUCOSE; Start 09/01/16 at 05:00 Dextrose (D50w Syringe) 50 ml Q15M PRN IV DECREASED GLUCOSE; Start 09/01/16 at 05:00 Glucagon (Glucagen) 1 mg Q15M PRN IM DECREASED GLUCOSE; Start 09/01/16 at 05:00 Glucose (Glutose) 15 gm Q15M PRN BUCCAL DECREASED GLUCOSE; Start 09/01/16 at 05 :00 Aspirin (Halfprin) 81 mg DAILY PO Last administered on 09/08/16 08:58; Admin Dose 81 MG; Start 09/01/16 at 09:00 Hydroxyzine HCl (Atarax) 25 mg Q6H PRN GTB ITCHING; Start 09/01/16 at 08:30 Docusate Sodium (Colace) 100 mg DAILY PO Last administered on 09/08/16 08:58; Admin Dose 100 MG; Start 09/01/16 at 09:00 Metoprolol Succinate (Toprol Xl) 12.5 mg BID PO Last administered on 09/07/16 20:44; Admin Dose 12.5 MG; Start 09/03/16 at 21:00 Hydralazine HCl (Apresoline) 10 mg Q8 PO Last administered on 09/08/16 05:31; Admin Dose 10 MG; Start 09/03/16 at 22:00 Famotidine (Pepcid) 20 mg DAILY PO Last administered on 09/08/16 08:59; Admin Dose 20 MG; Start 09/05/16 at 17:57 Metolazone 5 mg 5 mg BID PO Last administered on 09/08/16 08:58; Admin Dose 5 MG; Start 09/06/16 at 09:00 Ferric Sodium Gluconate Complex/ Sodium Chloride (Ferrlecit/NS) 110 ml @ 110 mls/hr Q24H IVPB Last administered on 09/07/16 09:01; Admin Dose 110 MLS/HR; Start 09/07/16 at 09:00; Stop 09/11/16 at 09:59 Epoetin Rio (Epogen (Non Esrd/Non Oncology)) 10,000 units MoWeFr@17 SC Last administered on 09/07/16 17:20; Admin Dose 10,000 UNITS; Start 09/07/16 at 17:00 Sodium Polystyrene Sulfonate (Kayexalate) 30 gm ONCE ONCE PO ; Start 09/08/16 at 12:00; Stop 09/08/16 at 12:01; Status UNV ELANA LARSON September 08, 2016 11:59
[2016-09-08] MEDS ORDERED: NA POLYST SULFON 15 GM/60 ML BTL PO ONE ×2 (12:00→20:00)
--- NOTE | 2016-09-08 12:39 | CARRPT ---
DATE OF PROCEDURE: 09/08/2016 INDICATION: Cardiomyopathy with severely depressed left ventricular ejection fraction, assess for i schemia ____electrocardiogram. REFERRING PHYSICIAN: Dr. Perez from the hospitalist service. BASELINE VITAL SIGNS AND ELECTROCARDIOGRAM: Pulse 75, blood pressure 119/68. Electrocardiogram was normal sinus rhythm, rate of 75 with left bundle block, secondary repolarization abnormalities. PROCEDURE: The patient underwent standard Lexiscan infusion protocol over 10 seconds followed by ra diolabeled tracer. The patient's test was stopped due to completion of protocol. Maximal blood pre ssure during the test 140/66. Maximal heart rate during the test 80. ELECTROCARDIOGRAM FINDINGS: The patient did not develop any new Lexiscan-induced ST or T-wave dawkins es from baseline abnormalities. No documented PVCs. SYMPTOMS: The patient had complaints of chest pain and stomach pain, shortness of breath during Nando iscan infusion, which resolved in recovery. IMPRESSION: 1. No Lexiscan-induced ST or T-wave changes from baseline abnormalities diagnostic cardiac ischemia . 2. Complaints of chest pain, shortness breath during stress test that resolved in recovery. 3. No documented premature ventricular contractions during stress testing. 4. Report of nuclear images to follow in separate dictation. Dictated By: ELANA ROTHMAN/IMTIAZ Conf#: [id number] DID#: [id number] CC: BRADLEY PEREZ MD;*EndCC*
[2016-09-08] MEDS: SOD FERRIC GLUC COMPLX 125 MG in SOD CHLORIDE 0.9% 100 ML IVPB SCH (12:52)
[2016-09-08] MEDS: METOPROLOL (XL) 25 MG TAB PO SCH ×2 (12:56→21:29)
--- NOTE | 2016-09-08 13:51 | RADRPT ---
PROCEDURE: Lexiscan myocardial perfusion study CLINICAL INDICATION: 65 -year-old patient complaining of chest pain. TECHNIQUE: Lexiscan 0.4 mg intravenously separate acquisition gated myocardial perfusion SPECT usi ng Tc 99m Myoview 31.1 mCi intravenously at stress and Tc-99m Myoview, 10.4 mCi intravenously at res t was performed using the rest/stress sequence. Poststress Myoview SPECT images were obtained in th e supine position. COMPARISON: No prior studies. FINDINGS: Perfusion images reveal a large size moderate to severe in degree nonreversible perfusion defect in the apical, distal to mid anterior, distal to mid anteroseptal, inferior and inferolateral muñoz. Lexiscan post stress gated SPECT images demonstrate moderate hypokinesis of the left ventricle. IMPRESSION: 1. The type and distribution of the scintigraphic abnormalities are most consistent with a large no nreversible perfusion defect in the apex, distal to mid anterior, distal to mid anteroseptal, inferi or and inferolateral muñoz. 2. Moderate hypokinesis of the left ventricle. 3. The left ventricle ejection fraction at stress is 21%. RPTAT: HH .Lianet Willoughby MD, MD Date Time Electronically viewed and signed by .Lianet Willoughby MD, on 09/08/2016 13:50 .L/
--- NOTE | 2016-09-08 13:59 | PN ---
Date/Time of Note Date/Time of Note DATE: 09/08/16 TIME: 13:57 Assessment/Plan VTE Prophylaxis VTE Prophylaxis Intervention: heparin Lines/Catheters IV [facility] Type [facility] Saline Lock Urinary Cath still in place: No Assessment/Plan Chief Complaint/Hosp Course 1. Acute respiratory failure. Hypoxic. Secondary to congestive heart failure exacerbation. Systolic dysfunction. Continue supplemental oxygen and inhaled bronchodilators. 2. Cardiomyopathy with ejection fraction of 15% to 20%. Continue cardiac medications including beta blockers and hydralazine. The patient is not an ideal candidate for JACQUELINE inhibitors because of underlying renal function. 3. Acute on chronic congestive heart failure exacerbation. Systolic dysfunction. Continue on diuretics as per nephrology. 4. Acute on chronic kidney disease. Continue to monitor BUN and creatinine closely. Nephrology following. 5. Essential hypertension. Continue antihypertensives. Blood pressure slightly on the lower side. 6. History of coronary artery disease. Continue antiplatelet therapy. 7. Diabetes mellitus type 2. Hemoglobin A1c 5.4. Continue sliding scale insulin. Blood sugars fairly good control. 8. Dyslipidemia. Reinforced low cholesterol diet. 9. Hyperkalemia, most probably secondary to underlying worsening renal function. Management as per nephrology. 10. Peripheral vascular disease. Continue antiplatelet therapy. 11. Monoclonal gammopathy. The patient being followed by hematology. 12. Fluid, electrolytes and nutrition. Carbohydrate controlled, low cholesterol diet. 13 Deep venous thrombosis prophylaxis, subcutaneous heparin. 14. Gastrointestinal prophylaxis. Histamine 2 receptor blockers. PLAN: 1. Continue current management. 2. Continue to monitor renal function closely. 3. Await further recommendations from consultants. Case discussed with Dr. Fuentes. The plan of care was explained to the patient's with the help of an [place] ed educational aide. Problems: Exam/Review of Systems Vital Signs Vitals Vital Signs Date Time Temp Pulse Resp B/P Pulse Ox O2 Delivery O2 Flow Rate FiO2 09/08/16 10:00 Nasal Cannula 2.0 09/08/16 08:12 77 09/08/16 07:59 98.6 16 130/73 98 Intake and Output 09/07/16 09/07/16 09/08/16 15:00 23:00 07:00 Intake Total 110 ml 720 ml Output Total 2000 ml Balance 110 ml -1280 ml Exam GENERAL: This is a 65-year-old male sitting in bed in no apparent distress. HEENT: Head normocephalic and atraumatic. Eyes: Anicteric sclerae. Conjunctivae clear. ENT: Nasal septum is midline. Oral mucosa is moist. NECK: Supple. No JVD noticed. RESPIRATORY: Bilaterally diminished breath sounds. Right basilar rales. CARDIAC: Regular rate and rhythm. S1 and S2 heard. GENITOURINARY: Deferred. EXTREMITIES: No cyanosis, no clubbing. Right-sided below knee amputation. NEUROLOGIC: The patient is awake, alert and oriented. Cranial nerves are grossly intact. Results Result Diagram: 09/08/16 0655 09/08/16 0655 Results 24 hrs Laboratory Tests Test 09/07/16 15:50 09/07/16 17:10 09/07/16 20:06 09/08/16 02:00 Immunoglobulin A 749 H Immunoglobulin G 1760 H Immunoglobulin M 83 Bedside Glucose 141 168 130 Test 09/08/16 06:55 09/08/16 08:03 09/08/16 12:52 White Blood Count 9.8 Red Blood Count 3.95 L Hemoglobin 9.7 L Hematocrit 31.3 L Mean Corpuscular Volume 79.2 L Mean Corpuscular Hemoglobin 24.6 L Mean Corpuscular Hemoglobin Concent 31.0 L Red Cell Distribution Width 17.1 H Platelet Count 226 Mean Platelet Volume 9.9 Neutrophils % 77.6 H Lymphocytes % 9.7 L Monocytes % 7.6 Eosinophils % 3.9 Basophils % 0.6 Nucleated Red Blood Cells % 0.0 Neutrophils # 7.6 H Lymphocytes # 1.0 Monocytes # 0.7 Eosinophils # 0.4 Basophils # 0.1 Nucleated Red Blood Cells # 0.0 Sodium Level 138 Potassium Level 5.8 H Chloride Level 98 Carbon Dioxide Level 28 Anion Gap 18 H Blood Urea Nitrogen 64 H Creatinine 2.02 H Glucose Level 94 Calcium Level 9.0 Magnesium Level 1.7 Bedside Glucose 94 85 Medications Medications Current Medications Heparin Sodium (Porcine) (Heparin (5000 Units/0.5 ml)) 5,000 unit BID SC Last administered on 09/08/16 09:07; Admin Dose 5,000 UNIT; Start 09/01/16 at 09:00 Acetaminophen (Tylenol Tab) 650 mg Q6H PRN PO PAIN AND OR ELEVATED TEMP Last administered on 09/08/16 12:57; Admin Dose 650 MG; Start 09/01/16 at 05:00 Insulin Glargine (Lantus) 12 unit DAILY@20 SC Last administered on 09/07/16 20: 42; Admin Dose 12 UNIT; Start 09/01/16 at 20:00 Diagnostic Test (Pha) (Accu-Chek) 1 ea 02 XX Last administered on 09/05/16 02: 00; Admin Dose 1 EA; Start 09/02/16 at 02:00 Ondansetron HCl (Zofran Inj) 4 mg Q6H PRN IV NAUSEA AND/OR VOMITING; Start at 05:00 Miscellaneous Information 1 ea NOTE XX ; Start 09/01/16 at 05:00 Glucose (Glutose) 15 gm Q15M PRN PO DECREASED GLUCOSE; Start 09/01/16 at 05:00 Glucose (Glutose) 22.5 gm Q15M PRN PO DECREASED GLUCOSE; Start 09/01/16 at 05: 00 Dextrose (D50w Syringe) 25 ml Q15M PRN IV DECREASED GLUCOSE; Start 09/01/16 at 05:00 Dextrose (D50w Syringe) 50 ml Q15M PRN IV DECREASED GLUCOSE; Start 09/01/16 at 05:00 Glucagon (Glucagen) 1 mg Q15M PRN IM DECREASED GLUCOSE; Start 09/01/16 at 05:00 Glucose (Glutose) 15 gm Q15M PRN BUCCAL DECREASED GLUCOSE; Start 09/01/16 at 05 :00 Aspirin (Halfprin) 81 mg DAILY PO Last administered on 09/08/16 08:58; Admin Dose 81 MG; Start 09/01/16 at 09:00 Hydroxyzine HCl (Atarax) 25 mg Q6H PRN GTB ITCHING; Start 09/01/16 at 08:30 Docusate Sodium (Colace) 100 mg DAILY PO Last administered on 09/08/16 08:58; Admin Dose 100 MG; Start 09/01/16 at 09:00 Metoprolol Succinate (Toprol Xl) 12.5 mg BID PO Last administered on 09/08/16 12:56; Admin Dose 12.5 MG; Start 09/03/16 at 21:00 Hydralazine HCl (Apresoline) 10 mg Q8 PO Last administered on 09/08/16 05:31; Admin Dose 10 MG; Start 09/03/16 at 22:00 Famotidine (Pepcid) 20 mg DAILY PO Last administered on 09/08/16 08:59; Admin Dose 20 MG; Start 09/05/16 at 17:57 Metolazone 5 mg 5 mg BID PO Last administered on 09/08/16 08:58; Admin Dose 5 MG; Start 09/06/16 at 09:00 Ferric Sodium Gluconate Complex/ Sodium Chloride (Ferrlecit/NS) 110 ml @ 110 mls/hr Q24H IVPB Last administered on 09/08/16 12:52; Admin Dose 110 MLS/HR; Start 09/07/16 at 09:00; Stop 09/11/16 at 09:59 Epoetin Rio (Epogen (Non Esrd/Non Oncology)) 10,000 units MoWeFr@17 SC Last administered on 09/07/16 17:20; Admin Dose 10,000 UNITS; Start 09/07/16 at 17:00 RICKY CHUNG NP September 08, 2016 13:58
--- NOTE | 2016-09-08 17:25 | CONS ---
Date/Time of Note Date/Time of Note DATE: 09/08/16 TIME: 17:17 Assessment/Plan Assessment/Plan Chief Complaint/Hosp Course 65 yo male with CKD found with faint IgA (kappa) monoclonal immunoglobulin detected on serum and urine immunofixation. Although monoclonal gammopathy can be seen in CKD it is reasonable to rule out multiple myeloma or smoldering myeloma. We will first order the SPEP to see if there is a clinically significant amount of monoclonal protein. We will also order quantitative immunoglobulins and [place]/ lambda Light chains. # Concern for monoclonal gammopathy -f/u SPEP, Free [place]/ Lambda LC (pending). IgG and IGA are both elevated without reciprocal depression of IgM (normal at 83). Low suspicion for myleoma , likely related to CKD. -if the above labs are abnormal, we will need to pursue a bone marrow bx to confirm the presence of multiple myeloma. # Anemia - this is likely secondary to iron deficiency as well as CKD -cont Ferrlecit as ordered -Epo level ordered to see if patient would benefit from procrit (pending) # CHF - ER 20% -management per cardiology # CKD -management per nephrology Problems: Consultation Date/Type/Reason Admit Date/Time Aug 31, 2016 at 19:32 Initial Consult Date 09/07/16 Type of Consultation: Hematology/Oncology Referring Provider: RICKY CHUNG NP 24 HR Interval Summary Free Text/Dictation Patient feels "normal," no complaints. Exam/Review of Systems Vital Signs Vitals Vital Signs Date Time Temp Pulse Resp B/P Pulse Ox O2 Delivery O2 Flow Rate FiO2 09/08/16 16:13 97.8 80 18 101/59 92 09/08/16 10:00 Nasal Cannula 2.0 Intake and Output 09/07/16 09/07/16 09/08/16 15:00 23:00 07:00 Intake Total 110 ml 720 ml Output Total 2000 ml Balance 110 ml -1280 ml Exam Constitutional: alert, oriented Psych: no complaints Head: normocephalic Eyes: nl conjunctiva ENMT: nl external ears & nose, nl lips & teeth Neck: non-tender, supple Respiratory: clear to auscultation, normal air movement Cardiovascular: regular rate and rhythm Gastrointestinal: soft Musculoskeletal: nl extremities to inspection, nl gait and stance Extremities: normal pulses, other (s/p amputation) Results Result Diagram: 09/08/16 0655 09/08/16 0655 Results 24 hrs Laboratory Tests Test 09/07/16 20:06 09/08/16 02:00 09/08/16 06:55 09/08/16 08:03 Bedside Glucose 168 130 94 White Blood Count 9.8 Red Blood Count 3.95 L Hemoglobin 9.7 L Hematocrit 31.3 L Mean Corpuscular Volume 79.2 L Mean Corpuscular Hemoglobin 24.6 L Mean Corpuscular Hemoglobin Concent 31.0 L Red Cell Distribution Width 17.1 H Platelet Count 226 Mean Platelet Volume 9.9 Neutrophils % 77.6 H Lymphocytes % 9.7 L Monocytes % 7.6 Eosinophils % 3.9 Basophils % 0.6 Nucleated Red Blood Cells % 0.0 Neutrophils # 7.6 H Lymphocytes # 1.0 Monocytes # 0.7 Eosinophils # 0.4 Basophils # 0.1 Nucleated Red Blood Cells # 0.0 Sodium Level 138 Potassium Level 5.8 H Chloride Level 98 Carbon Dioxide Level 28 Anion Gap 18 H Blood Urea Nitrogen 64 H Creatinine 2.02 H Glucose Level 94 Calcium Level 9.0 Magnesium Level 1.7 Test 09/08/16 12:52 Bedside Glucose 85 Medications Medications Current Medications Heparin Sodium (Porcine) (Heparin (5000 Units/0.5 ml)) 5,000 unit BID SC Last administered on 09/08/16 09:07; Admin Dose 5,000 UNIT; Start 09/01/16 at 09:00 Acetaminophen (Tylenol Tab) 650 mg Q6H PRN PO PAIN AND OR ELEVATED TEMP Last administered on 09/08/16 12:57; Admin Dose 650 MG; Start 09/01/16 at 05:00 Insulin Glargine (Lantus) 12 unit DAILY@20 SC Last administered on 09/07/16 20: 42; Admin Dose 12 UNIT; Start 09/01/16 at 20:00 Diagnostic Test (Pha) (Accu-Chek) 1 ea 02 XX Last administered on 09/05/16 02: 00; Admin Dose 1 EA; Start 09/02/16 at 02:00 Ondansetron HCl (Zofran Inj) 4 mg Q6H PRN IV NAUSEA AND/OR VOMITING; Start at 05:00 Miscellaneous Information 1 ea NOTE XX ; Start 09/01/16 at 05:00 Glucose (Glutose) 15 gm Q15M PRN PO DECREASED GLUCOSE; Start 09/01/16 at 05:00 Glucose (Glutose) 22.5 gm Q15M PRN PO DECREASED GLUCOSE; Start 09/01/16 at 05: 00 Dextrose (D50w Syringe) 25 ml Q15M PRN IV DECREASED GLUCOSE; Start 09/01/16 at 05:00 Dextrose (D50w Syringe) 50 ml Q15M PRN IV DECREASED GLUCOSE; Start 09/01/16 at 05:00 Glucagon (Glucagen) 1 mg Q15M PRN IM DECREASED GLUCOSE; Start 09/01/16 at 05:00 Glucose (Glutose) 15 gm Q15M PRN BUCCAL DECREASED GLUCOSE; Start 09/01/16 at 05 :00 Aspirin (Halfprin) 81 mg DAILY PO Last administered on 09/08/16 08:58; Admin Dose 81 MG; Start 09/01/16 at 09:00 Hydroxyzine HCl (Atarax) 25 mg Q6H PRN GTB ITCHING; Start 09/01/16 at 08:30 Docusate Sodium (Colace) 100 mg DAILY PO Last administered on 09/08/16 08:58; Admin Dose 100 MG; Start 09/01/16 at 09:00 Metoprolol Succinate (Toprol Xl) 12.5 mg BID PO Last administered on 09/08/16 12:56; Admin Dose 12.5 MG; Start 09/03/16 at 21:00 Hydralazine HCl (Apresoline) 10 mg Q8 PO Last administered on 09/08/16 14:14; Admin Dose 10 MG; Start 09/03/16 at 22:00 Famotidine (Pepcid) 20 mg DAILY PO Last administered on 09/08/16 08:59; Admin Dose 20 MG; Start 09/05/16 at 17:57 Metolazone 5 mg 5 mg BID PO Last administered on 09/08/16 08:58; Admin Dose 5 MG; Start 09/06/16 at 09:00 Ferric Sodium Gluconate Complex/ Sodium Chloride (Ferrlecit/NS) 110 ml @ 110 mls/hr Q24H IVPB Last administered on 09/08/16 12:52; Admin Dose 110 MLS/HR; Start 09/07/16 at 09:00; Stop 09/11/16 at 09:59 Epoetin Rio (Epogen (Non Esrd/Non Oncology)) 10,000 units MoWeFr@17 SC Last administered on 09/07/16t 17:20; Admin Dose 10,000 UNITS; Start 09/07/16 at 17:00 OLIVE SUAREZ MD September 08, 2016 17:25
[2016-09-08] MEDS: INSULIN GLARGINE [LANtus] 3 ML PEN SC SCH (21:07)
[2016-09-09] VITALS (11 sets, daily range): BP systolic 103–122; BP diastolic 56–65; PULSE 72–80; RESP 18–20
[2016-09-09] MEDS: ACCU-CHEK XX SCH (02:34)
[2016-09-09] MEDS: FUROSEMIDE 40 MG INJ IV SCH (05:30)
[2016-09-09 07:23] LABS: ADD SCAN DIFF NO
[2016-09-09 07:31] LABS: BASOPHILS % 0.5 % (0.0-2.0); EOSINOPHILS # 0.4 10^3/ul (0.0-0.5); HEMATOCRIT 28.3 % (42.0-52.0); HEMOGLOBIN 8.7 g/dl (14.0-18.0); LYMPHOCYTES # 1.1 10^3/ul (0.8-2.9); LYMPHOCYTES % 17.5 % (15.0-51.0); MEAN CORPUSCULAR HEMOGLOBIN 24.4 pg (29.0-33.0); MEAN CORPUSCULAR HGB CONC 30.7 g/dl (32.0-37.0); MEAN CORPUSCULAR VOLUME 79.5 fl (82.0-101.0); MEAN PLATELET VOLUME 10.3 fl (7.4-10.4); MONOCYTE # 0.5 10^3/ul (0.3-0.9); MONOCYTES % 8.8 % (0.0-11.0); NEUTROPHILS % 66.7 % (39.0-77.0); PLATELET COUNT 204 10^3/UL (140-415); RED BLOOD COUNT 3.56 10^6/ul (4.70-6.10); RED CELL DISTRIBUTION WIDTH 17.2 % (11.5-14.5)
[2016-09-09] MEDS: INSULIN ASPART [NOVOLOG] 3 ML PEN SC SCH ×4 (07:50→21:00)
--- NOTE | 2016-09-09 07:59 | CONS ---
Date/Time of Note Date/Time of Note DATE: 09/09/16 TIME: 07:57 Assessment/Plan Assessment/Plan Additional Assessment/Plan 1. CHF resolved. 2. ASHD (nucl mill noted) with marked reduced ejection fx 3. Renal fx stable, labs today pending, I changed lasix to bid (po) and stopped zaroxolyn 4. Heme eval in progress re-monoclonal protein. Consultation Date/Type/Reason Admit Date/Time Aug 31, 2016 at 19:32 Type of Consultation: Hematology/Oncology Referring Provider: RICKY CHUNG TELEVISION PRESENTER Detailed Summary Respiratory: No shortness of breath Cardiovascular: No chest pain Gastrointestinal: no complaints Exam/Review of Systems Vital Signs Vitals Vital Signs Date Time Temp Pulse Resp B/P Pulse Ox O2 Delivery O2 Flow Rate FiO2 09/09/16 07:34 98.1 78 18 117/65 96 09/08/16 21:00 Nasal Cannula 2.0 Intake and Output 09/08/16 09/08/16 09/09/16 15:00 23:00 07:00 Intake Total 650 ml 830 ml 500 ml Output Total 1000 ml 1000 ml 990 ml Balance -350 ml -170 ml -490 ml Exam Neck: jvd (is present) Respiratory: diminished breath sounds, No crackles/rales Cardiovascular: regular rate and rhythm Gastrointestinal: soft Extremities: edema (sacral edmea much improved) Results Result Diagram: 09/09/16 0700 09/08/16 1732 Results 24 hrs Laboratory Tests Test 09/08/16 08:03 09/08/16 12:52 09/08/16 17:32 09/08/16 17:44 Bedside Glucose 94 85 173 Potassium Level 5.5 H Test 09/08/16 20:58 09/09/16 02:34 09/09/16 07:00 Bedside Glucose 204 144 White Blood Count 6.0 # Red Blood Count 3.56 L Hemoglobin 8.7 L Hematocrit 28.3 L Mean Corpuscular Volume 79.5 L Mean Corpuscular Hemoglobin 24.4 L Mean Corpuscular Hemoglobin Concent 30.7 L Red Cell Distribution Width 17.2 H Platelet Count 204 Mean Platelet Volume 10.3 Neutrophils % 66.7 Lymphocytes % 17.5 Monocytes % 8.8 Eosinophils % 6.0 Basophils % 0.5 Nucleated Red Blood Cells % 0.0 Neutrophils # 4.0 Lymphocytes # 1.1 Monocytes # 0.5 Eosinophils # 0.4 Basophils # 0.0 Nucleated Red Blood Cells # 0.0 Medications Medications Current Medications Heparin Sodium (Porcine) (Heparin (5000 Units/0.5 ml)) 5,000 unit BID SC Last administered on 09/08/16 21:06; Admin Dose 5,000 UNIT; Start 09/01/16 at 09:00 Acetaminophen (Tylenol Tab) 650 mg Q6H PRN PO PAIN AND OR ELEVATED TEMP Last administered on 09/08/16 12:57; Admin Dose 650 MG; Start 09/01/16 at 05:00 Insulin Glargine (Lantus) 12 unit DAILY@20 SC Last administered on 09/08/16 21: 07; Admin Dose 12 UNIT; Start 09/01/16 at 20:00 Diagnostic Test (Pha) (Accu-Chek) 1 ea 02 XX Last administered on 09/09/16 02: 34; Admin Dose 1 EA; Start 09/02/16 at 02:00 Ondansetron HCl (Zofran Inj) 4 mg Q6H PRN IV NAUSEA AND/OR VOMITING; Start at 05:00 Miscellaneous Information 1 ea NOTE XX ; Start 09/01/16 at 05:00 Glucose (Glutose) 15 gm Q15M PRN PO DECREASED GLUCOSE; Start 09/01/16 at 05:00 Glucose (Glutose) 22.5 gm Q15M PRN PO DECREASED GLUCOSE; Start 09/01/16 at 05: 00 Dextrose (D50w Syringe) 25 ml Q15M PRN IV DECREASED GLUCOSE; Start 09/01/16 at 05:00 Dextrose (D50w Syringe) 50 ml Q15M PRN IV DECREASED GLUCOSE; Start 09/01/16 at 05:00 Glucagon (Glucagen) 1 mg Q15M PRN IM DECREASED GLUCOSE; Start 09/01/16 at 05:00 Glucose (Glutose) 15 gm Q15M PRN BUCCAL DECREASED GLUCOSE; Start 09/01/16 at 05 :00 Aspirin (Halfprin) 81 mg DAILY PO Last administered on 09/08/16 08:58; Admin Dose 81 MG; Start 09/01/16 at 09:00 Hydroxyzine HCl (Atarax) 25 mg Q6H PRN GTB ITCHING; Start 09/01/16 at 08:30 Docusate Sodium (Colace) 100 mg DAILY PO Last administered on 09/08/16 08:58; Admin Dose 100 MG; Start 09/01/16 at 09:00 Metoprolol Succinate (Toprol Xl) 12.5 mg BID PO Last administered on 09/08/16 21:29; Admin Dose 12.5 MG; Start 09/03/16 at 21:00 Hydralazine HCl (Apresoline) 10 mg Q8 PO Last administered on 09/09/16 05:31; Admin Dose 10 MG; Start 09/03/16 at 22:00 Famotidine (Pepcid) 20 mg DAILY PO Last administered on 09/08/16 08:59; Admin Dose 20 MG; Start 09/05/16 at 17:57 Metolazone 5 mg 5 mg BID PO Last administered on 09/08/16 21:03; Admin Dose 5 MG; Start 09/06/16 at 09:00 Ferric Sodium Gluconate Complex/ Sodium Chloride (Ferrlecit/NS) 110 ml @ 110 mls/hr Q24H IVPB Last administered on 09/08/16 12:52; Admin Dose 110 MLS/HR; Start 09/07/16 at 09:00; Stop 09/11/16 at 09:59 Epoetin Rio (Epogen (Non Esrd/Non Oncology)) 10,000 units MoWeFr@17 SC Last administered on 09/07/16 17:20; Admin Dose 10,000 UNITS; Start 09/07/16 at 17:00 JACKIE FROST MD September 09, 2016 07:59
[2016-09-09 08:01] LABS: CALCIUM 8.5 mg/dl (8.4-10.2); CREATININE 2.07 mg/dl (0.61-1.24); POTASSIUM 4.3 mmol/L (3.5-5.1)
[2016-09-09] MEDS: ASPIRIN (EC) 81 MG TAB PO SCH (09:01)
[2016-09-09] MEDS: METOPROLOL (XL) 25 MG TAB PO SCH ×2 (09:01→21:14)
[2016-09-09] MEDS: DOCUSATE SODIUM 100 MG CAP PO SCH (09:01)
[2016-09-09] MEDS: FAMOTIDINE 20 MG TAB PO SCH (09:01)
[2016-09-09] MEDS: SOD FERRIC GLUC COMPLX 125 MG in SOD CHLORIDE 0.9% 100 ML IVPB SCH (09:02)
[2016-09-09] MEDS: HEPARIN 5,000 UNIT/0.5 ML VIAL SC SCH ×2 (09:05→21:15)
[2016-09-09] MEDS: FUROSEMIDE 40 MG TAB PO SCH ×2 (09:06→17:27)
[2016-09-09 10:24] LABS: PROTEIN, TOTAL 7.6 g/dL (6.1-8.1)
--- NOTE | 2016-09-09 14:41 | PN ---
Date/Time of Note Date/Time of Note DATE: 09/09/16 TIME: 14:39 Assessment/Plan VTE Prophylaxis VTE Prophylaxis Intervention: heparin Lines/Catheters IV C[facility] Type ([facility] [place] [facility] Urinary Cath still in place: No Assessment/Plan Chief Complaint/Hosp Course 1. Acute respiratory failure. Hypoxic. Secondary to congestive heart failure exacerbation. Systolic dysfunction. Continue supplemental oxygen and inhaled bronchodilators. 2. Cardiomyopathy with ejection fraction of 15% to 20%. Continue cardiac medications including beta blockers and hydralazine. The patient is not an ideal candidate for JACQUELINE inhibitors because of underlying renal function. 3. Acute on chronic congestive heart failure exacerbation. Systolic dysfunction. Continue diuretics as per nephrology. 4. Acute on chronic kidney disease. Continue to monitor BUN and creatinine closely. Nephrology following. 5. Essential hypertension. Continue antihypertensives. Blood pressure slightly on the lower side. 6. History of coronary artery disease. Continue antiplatelet therapy. 7. Diabetes mellitus type 2. Hemoglobin A1c 5.4. Continue sliding scale insulin. Blood sugars fairly well controlled. 8. Dyslipidemia. Reinforced low cholesterol diet. 9. Hyperkalemia, most probably secondary to underlying worsening renal function. Management as per nephrology. 10. Peripheral vascular disease. Continue antiplatelet therapy. 11. Monoclonal gammopathy. The patient being followed by hematology. 12. Fluid, electrolytes and nutrition. Carbohydrate controlled, low cholesterol diet. 13 Deep venous thrombosis prophylaxis, subcutaneous heparin. 14. Gastrointestinal prophylaxis. Histamine 2 receptor blockers. PLAN: 1. Continue current management. 2. Continue to monitor renal function closely. 3. Await further recommendations from consultants. Case discussed with Dr. Fuentes. Problems: Subjective 24 Hr Interval Summary Free Text/Dictation Vital signs stable. Exam/Review of Systems Vital Signs Vitals Vital Signs Date Time Temp Pulse Resp B/P Pulse Ox O2 Delivery O2 Flow Rate FiO2 09/09/16 12:44 77 09/09/16 12:11 98.1 18 121/60 96 09/08/16 21:00 Nasal Cannula 2.0 Intake and Output 09/08/16 09/08/16 09/09/16 14:59 22:59 06:59 Intake Total 650 ml 830 ml 500 ml Output Total 1000 ml 1000 ml 990 ml Balance -350 ml -170 ml -490 ml Exam GENERAL: This is a 65-year-old male sitting in bed in no apparent distress. HEENT: Head normocephalic and atraumatic. Eyes: Anicteric sclerae. Conjunctivae clear. ENT: Nasal septum is midline. Oral mucosa is moist. NECK: Supple. No JVD noticed. RESPIRATORY: Bilaterally diminished breath sounds. Right basilar rales. CARDIAC: Regular rate and rhythm. S1 and S2 heard. GENITOURINARY: Deferred. EXTREMITIES: No cyanosis, no clubbing. Right-sided below knee amputation. NEUROLOGIC: The patient is awake, alert and oriented. Cranial nerves are grossly intact. Results Result Diagram: 09/09/16 0700 09/09/16 0700 Results 24 hrs Laboratory Tests Test 09/08/16 17:32 09/08/16 17:44 09/08/16 20:58 09/09/16 02:34 Potassium Level 5.5 H Bedside Glucose 173 204 144 Test 09/09/16 07:00 09/09/16 07:43 09/09/16 11:52 White Blood Count 6.0 # Red Blood Count 3.56 L Hemoglobin 8.7 L Hematocrit 28.3 L Mean Corpuscular Volume 79.5 L Mean Corpuscular Hemoglobin 24.4 L Mean Corpuscular Hemoglobin Concent 30.7 L Red Cell Distribution Width 17.2 H Platelet Count 204 Mean Platelet Volume 10.3 Neutrophils % 66.7 Lymphocytes % 17.5 Monocytes % 8.8 Eosinophils % 6.0 Basophils % 0.5 Nucleated Red Blood Cells % 0.0 Neutrophils # 4.0 Lymphocytes # 1.1 Monocytes # 0.5 Eosinophils # 0.4 Basophils # 0.0 Nucleated Red Blood Cells # 0.0 Sodium Level 139 Potassium Level 4.3 Chloride Level 101 Carbon Dioxide Level 29 Anion Gap 13 Blood Urea Nitrogen 64 H Creatinine 2.07 H Glucose Level 123 Calcium Level 8.5 Magnesium Level 1.7 Bedside Glucose 108 144 Medications Medications Current Medications Heparin Sodium (Porcine) (Heparin (5000 Units/0.5 ml)) 5,000 unit BID SC Last administered on 09/09/16 09:05; Admin Dose 5,000 UNIT; Start 09/01/16 at 09:00 Acetaminophen (Tylenol Tab) 650 mg Q6H PRN PO PAIN AND OR ELEVATED TEMP Last administered on 09/08/16 12:57; Admin Dose 650 MG; Start 09/01/16 at 05:00 Insulin Glargine (Lantus) 12 unit DAILY@20 SC Last administered on 09/08/16 21: 07; Admin Dose 12 UNIT; Start 09/01/16 at 20:00 Diagnostic Test (Pha) (Accu-Chek) 1 ea 02 XX Last administered on 09/09/16 02: 34; Admin Dose 1 EA; Start 09/02/16 at 02:00 Ondansetron HCl (Zofran Inj) 4 mg Q6H PRN IV NAUSEA AND/OR VOMITING; Start at 05:00 Miscellaneous Information 1 ea NOTE XX ; Start 09/01/16 at 05:00 Glucose (Glutose) 15 gm Q15M PRN PO DECREASED GLUCOSE; Start 09/01/16 at 05:00 Glucose (Glutose) 22.5 gm Q15M PRN PO DECREASED GLUCOSE; Start 09/01/16 at 05: 00 Dextrose (D50w Syringe) 25 ml Q15M PRN IV DECREASED GLUCOSE; Start 09/01/16 at 05:00 Dextrose (D50w Syringe) 50 ml Q15M PRN IV DECREASED GLUCOSE; Start 09/01/16 at 05:00 Glucagon (Glucagen) 1 mg Q15M PRN IM DECREASED GLUCOSE; Start 09/01/16 at 05:00 Glucose (Glutose) 15 gm Q15M PRN BUCCAL DECREASED GLUCOSE; Start 09/01/16 at 05 :00 Aspirin (Halfprin) 81 mg DAILY PO Last administered on 09/09/16 09:01; Admin Dose 81 MG; Start 09/01/16 at 09:00 Hydroxyzine HCl (Atarax) 25 mg Q6H PRN GTB ITCHING; Start 09/01/16 at 08:30 Docusate Sodium (Colace) 100 mg DAILY PO Last administered on 09/09/16 09:01; Admin Dose 100 MG; Start 09/01/16 at 09:00 Metoprolol Succinate (Toprol Xl) 12.5 mg BID PO Last administered on 09/09/16 09:01; Admin Dose 12.5 MG; Start 09/03/16 at 21:00 Hydralazine HCl (Apresoline) 10 mg Q8 PO Last administered on 09/09/16 05:31; Admin Dose 10 MG; Start 09/03/16 at 22:00 Famotidine 20 mg 20 mg DAILY PO Last administered on 09/09/16 09:01; Admin Dose 20 MG; Start 09/05/16 at 17:57 Ferric Sodium Gluconate Complex/ Sodium Chloride (Ferrlecit/NS) 110 ml @ 110 mls/hr Q24H IVPB Last administered on 09/09/16 09:02; Admin Dose 110 MLS/HR; Start 09/07/16 at 09:00; Stop 09/11/16 at 09:59 Epoetin Rio (Epogen (Non Esrd/Non Oncology)) 10,000 units MoWeFr@17 SC Last administered on 09/07/16 17:20; Admin Dose 10,000 UNITS; Start 09/07/16 at 17:00 RICKY CHUNG NP September 09, 2016 14:41
--- NOTE | 2016-09-09 15:35 | CONS ---
Date/Time of Note Date/Time of Note DATE: 09/09/16 TIME: 15:32 Assessment/Plan Assessment/Plan Chief Complaint/Hosp Course IMPRESSION: 1. Congestive heart failure, systolic, acute on chronic, likely.-negative troponin x 3. NOw s/p lexsiacn with scar but no reversible ischemia LVEF 21% 2. Cardiomyopathy with severely depressed left ventricular ejection fraction.15 -20% by echo this admit 3. Abnormal electrocardiogram with left bundle branch block pattern; negative troponins greater than 3. 4. Hypertension, under reasonable control. 5. Peripheral vascular disease, status post right above the knee amputation. 6. Renal failure 7. Hyperkalemia-improved today 8. Anemia. 9.Dyslipidemia-LDL 93 HDL 27 10. Monoclonal gammopathy Recc: -Tele -serial ecg's -Continue toprol XL -Continue low dose hydralazine afterload reduction as tolerated to improve cardiac output in lieu of ACEI given renal failure at this time -Continue lasix diuresis and follow gravity prospecting supervisor closely and volume status which is slowly improving Problems: Consultation Date/Type/Reason Admit Date/Time Aug 31, 2016 at 19:32 Initial Consult Date 09/02/2016 Type of Consultation: Cardiology Reason for Consultation Cardiomyopathy/CHF Referring Provider: RICKY CHUNG BREAKDOWN MAN Exam/Review of Systems Vital Signs Vitals Vital Signs Date Time Temp Pulse Resp B/P Pulse Ox O2 Delivery O2 Flow Rate FiO2 09/09/16 12:44 77 09/09/16 12:11 98.1 18 121/60 96 09/08/16 21:00 Nasal Cannula 2.0 Intake and Output 09/08/16 09/08/16 09/09/16 15:00 23:00 07:00 Intake Total 650 ml 830 ml 500 ml Output Total 1000 ml 1000 ml 990 ml Balance -350 ml -170 ml -490 ml Exam Review of Systems: CONSTITUTIONAL: No fevers, chills. PULMONARY: ongoing sob CARDIOVASCULAR: No chest pain/palpitations GASTROINTESTINAL: No nausea/vomiting. GENITOURINARY: No hematuria/dysuria. MUSCULOSKELETAL: No myagias/arthalgias. PSYCHIATRIC: The patient denies depression. NEUROLOGIC: lethargic Constitutional: alert Psych: no complaints Head: normocephalic ENMT: mucosa pink and moist Neck: jvd (9 cm water), supple Respiratory: diminished breath sounds (at bases/B) Cardiovascular: regular rate and rhythm Gastrointestinal: non-tender, soft Musculoskeletal: muscle tone (weakness generalized) Extremities: other (s/p LE amputation) Neurological: lethargic Results Result Diagram: 09/09/16 0700 09/09/16 0700 Results 24 hrs Laboratory Tests Test 09/08/16 17:32 09/08/16 17:44 09/08/16 20:58 09/09/16 02:34 Potassium Level 5.5 H Bedside Glucose 173 204 144 Test 09/09/16 07:00 09/09/16 07:43 09/09/16 11:52 White Blood Count 6.0 # Red Blood Count 3.56 L Hemoglobin 8.7 L Hematocrit 28.3 L Mean Corpuscular Volume 79.5 L Mean Corpuscular Hemoglobin 24.4 L Mean Corpuscular Hemoglobin Concent 30.7 L Red Cell Distribution Width 17.2 H Platelet Count 204 Mean Platelet Volume 10.3 Neutrophils % 66.7 Lymphocytes % 17.5 Monocytes % 8.8 Eosinophils % 6.0 Basophils % 0.5 Nucleated Red Blood Cells % 0.0 Neutrophils # 4.0 Lymphocytes # 1.1 Monocytes # 0.5 Eosinophils # 0.4 Basophils # 0.0 Nucleated Red Blood Cells # 0.0 Sodium Level 139 Potassium Level 4.3 Chloride Level 101 Carbon Dioxide Level 29 Anion Gap 13 Blood Urea Nitrogen 64 H Creatinine 2.07 H Glucose Level 123 Calcium Level 8.5 Magnesium Level 1.7 Bedside Glucose 108 144 Medications Medications Current Medications Heparin Sodium (Porcine) (Heparin (5000 Units/0.5 ml)) 5,000 unit BID SC Last administered on 09/09/16 09:05; Admin Dose 5,000 UNIT; Start 09/01/16 at 09:00 Acetaminophen (Tylenol Tab) 650 mg Q6H PRN PO PAIN AND OR ELEVATED TEMP Last administered on 09/08/16 12:57; Admin Dose 650 MG; Start 09/01/16 at 05:00 Insulin Glargine (Lantus) 12 unit DAILY@20 SC Last administered on 09/08/16 21: 07; Admin Dose 12 UNIT; Start 09/01/16 at 20:00 Diagnostic Test (Pha) (Accu-Chek) 1 ea 02 XX Last administered on 09/09/16 02: 34; Admin Dose 1 EA; Start 09/02/16 at 02:00 Ondansetron HCl (Zofran Inj) 4 mg Q6H PRN IV NAUSEA AND/OR VOMITING; Start at 05:00 Miscellaneous Information 1 ea NOTE XX ; Start 09/01/16 at 05:00 Glucose (Glutose) 15 gm Q15M PRN PO DECREASED GLUCOSE; Start 09/01/16 at 05:00 Glucose (Glutose) 22.5 gm Q15M PRN PO DECREASED GLUCOSE; Start 09/01/16 at 05: 00 Dextrose (D50w Syringe) 25 ml Q15M PRN IV DECREASED GLUCOSE; Start 09/01/16 at 05:00 Dextrose (D50w Syringe) 50 ml Q15M PRN IV DECREASED GLUCOSE; Start 09/01/16 at 05:00 Glucagon (Glucagen) 1 mg Q15M PRN IM DECREASED GLUCOSE; Start 09/01/16 at 05:00 Glucose (Glutose) 15 gm Q15M PRN BUCCAL DECREASED GLUCOSE; Start 09/01/16 at 05 :00 Aspirin (Halfprin) 81 mg DAILY PO Last administered on 09/09/16 09:01; Admin Dose 81 MG; Start 09/01/16 at 09:00 Hydroxyzine HCl (Atarax) 25 mg Q6H PRN GTB ITCHING; Start 09/01/16 at 08:30 Docusate Sodium (Colace) 100 mg DAILY PO Last administered on 09/09/16 09:01; Admin Dose 100 MG; Start 09/01/16 at 09:00 Metoprolol Succinate (Toprol Xl) 12.5 mg BID PO Last administered on 09/09/16 09:01; Admin Dose 12.5 MG; Start 09/03/16 at 21:00 Hydralazine HCl (Apresoline) 10 mg Q8 PO Last administered on 09/09/16 14:49; Admin Dose 10 MG; Start 09/03/16 at 22:00 Famotidine 20 mg 20 mg DAILY PO Last administered on 09/09/16 09:01; Admin Dose 20 MG; Start 09/05/16 at 17:57 Ferric Sodium Gluconate Complex/ Sodium Chloride (Ferrlecit/NS) 110 ml @ 110 mls/hr Q24H IVPB Last administered on 09/09/16 09:02; Admin Dose 110 MLS/HR; Start 09/07/16 at 09:00; Stop 09/11/16 at 09:59 Epoetin Rio (Epogen (Non Esrd/Non Oncology)) 10,000 units MoWeFr@17 SC Last administered on 09/07/16t 17:20; Admin Dose 10,000 UNITS; Start 09/07/16 at 17:00 ELANA LARSON September 09, 2016 15:35
--- NOTE | 2016-09-09 15:54 | PN ---
Date/Time of Note Date/Time of Note DATE: 09/09/16 TIME: 14:32 Assessment/Plan Lines/Catheters Urinary Cath still in place: No Exam/Review of Systems Vital Signs Vitals Results Result Diagram: 09/09/16 0700 09/09/16 0700 Medications Medications SHELDONRICKY NP September 09, 2016 15:52 slightly on the lower side. 6. History of coronary artery disease. Continue antiplatelet therapy. 7. Diabetes mellitus type 2. Hemoglobin A1c 5.4. Continue sliding scale insulin. Blood sugars fairly good control. 8. Dyslipidemia. Reinforced low cholesterol diet. 9. Hyperkalemia, most probably secondary to underlying worsening renal function. Management as per nephrology. 10. Peripheral vascular disease. Continue antiplatelet therapy. 11. Monoclonal gammopathy. The patient being followed by hematology. 12. Fluid, electrolytes and nutrition. Carbohydrate controlled, low cholesterol diet. 13 Deep venous thrombosis prophylaxis, subcutaneous heparin. 14. Gastrointestinal prophylaxis. Histamine 2 receptor blockers. PLAN: 1. Continue current management. 2. Continue to monitor renal function closely. 3. Await further recommendations from consultants. Case discussed with Dr. Fuentes. The plan of care was explained to the patient's with the help of an [place] telephone betting clerk. Problems: Exam/Review of Systems Vital Signs Vitals Vital Signs Date Time Temp Pulse Resp B/P Pulse Ox O2 Delivery O2 Flow Rate FiO2 09/09/16 12:44 77 09/09/16 12:11 98.1 18 121/60 96 09/08/16 21:00 Nasal Cannula 2.0 Intake and Output 09/08/16 09/08/16 09/09/16 15:00 23:00 07:00 Intake Total 650 ml 830 ml 500 ml Output Total 1000 ml 1000 ml 990 ml Balance -350 ml -170 ml -490 ml Exam GENERAL: This is a 65-year-old male sitting in bed in no apparent distress. HEENT: Head normocephalic and atraumatic. Eyes: Anicteric sclerae. Conjunctivae clear. ENT: Nasal septum is midline. Oral mucosa is moist. NECK: Supple. No JVD noticed. RESPIRATORY: Bilaterally diminished breath sounds. Right basilar rales. CARDIAC: Regular rate and rhythm. S1 and S2 heard. GENITOURINARY: Deferred. EXTREMITIES: No cyanosis, no clubbing. Right-sided below knee amputation. NEUROLOGIC: The patient is awake, alert and oriented. Cranial nerves are grossly intact. Results Result Diagram: 09/09/16 0700 09/09/16 0700 Results 24 hrs Laboratory Tests Test 09/08/16 17:32 09/08/16 17:44 09/08/16 20:58 09/09/16 02:34 Potassium Level 5.5 H Bedside Glucose 173 204 144 Test 09/09/16 07:00 09/09/16 07:43 09/09/16 11:52 White Blood Count 6.0 # Red Blood Count 3.56 L Hemoglobin 8.7 L Hematocrit 28.3 L Mean Corpuscular Volume 79.5 L Mean Corpuscular Hemoglobin 24.4 L Mean Corpuscular Hemoglobin Concent 30.7 L Red Cell Distribution Width 17.2 H Platelet Count 204 Mean Platelet Volume 10.3 Neutrophils % 66.7 Lymphocytes % 17.5 Monocytes % 8.8 Eosinophils % 6.0 Basophils % 0.5 Nucleated Red Blood Cells % 0.0 Neutrophils # 4.0 Lymphocytes # 1.1 Monocytes # 0.5 Eosinophils # 0.4 Basophils # 0.0 Nucleated Red Blood Cells # 0.0 Sodium Level 139 Potassium Level 4.3 Chloride Level 101 Carbon Dioxide Level 29 Anion Gap 13 Blood Urea Nitrogen 64 H Creatinine 2.07 H Glucose Level 123 Calcium Level 8.5 Magnesium Level 1.7 Bedside Glucose 108 144 Medications Medications Current Medications Heparin Sodium (Porcine) (Heparin (5000 Units/0.5 ml)) 5,000 unit BID SC Last administered on 09/09/16 09:05; Admin Dose 5,000 UNIT; Start 09/01/16 at 09:00 Acetaminophen (Tylenol Tab) 650 mg Q6H PRN PO PAIN AND OR ELEVATED TEMP Last administered on 09/08/16 12:57; Admin Dose 650 MG; Start 09/01/16 at 05:00 Insulin Glargine (Lantus) 12 unit DAILY@20 SC Last administered on 09/08/16 21: 07; Admin Dose 12 UNIT; Start 09/01/16 at 20:00 Diagnostic Test (Pha) (Accu-Chek) 1 ea 02 XX Last administered on 09/09/16 02: 34; Admin Dose 1 EA; Start 09/02/16 at 02:00 Ondansetron HCl (Zofran Inj) 4 mg Q6H PRN IV NAUSEA AND/OR VOMITING; Start at 05:00 Miscellaneous Information 1 ea NOTE XX ; Start 09/01/16 at 05:00 Glucose (Glutose) 15 gm Q15M PRN PO DECREASED GLUCOSE; Start 09/01/16 at 05:00 Glucose (Glutose) 22.5 gm Q15M PRN PO DECREASED GLUCOSE; Start 09/01/16 at 05: 00 Dextrose (D50w Syringe) 25 ml Q15M PRN IV DECREASED GLUCOSE; Start 09/01/16 at 05:00 Dextrose (D50w Syringe) 50 ml Q15M PRN IV DECREASED GLUCOSE; Start 09/01/16 at 05:00 Glucagon (Glucagen) 1 mg Q15M PRN IM DECREASED GLUCOSE; Start 09/01/16 at 05:00 Glucose (Glutose) 15 gm Q15M PRN BUCCAL DECREASED GLUCOSE; Start 09/01/16 at 05 :00 Aspirin (Halfprin) 81 mg DAILY PO Last administered on 09/09/16 09:01; Admin Dose 81 MG; Start 09/01/16 at 09:00 Hydroxyzine HCl (Atarax) 25 mg Q6H PRN GTB ITCHING; Start 09/01/16 at 08:30 Docusate Sodium (Colace) 100 mg DAILY PO Last administered on 09/09/16 09:01; Admin Dose 100 MG; Start 09/01/16 at 09:00 Metoprolol Succinate (Toprol Xl) 12.5 mg BID PO Last administered on 09/09/16 09:01; Admin Dose 12.5 MG; Start 09/03/16 at 21:00 Hydralazine HCl (Apresoline) 10 mg Q8 PO Last administered on 09/09/16 05:31; Admin Dose 10 MG; Start 09/03/16 at 22:00 Famotidine 20 mg 20 mg DAILY PO Last administered on 09/09/16 09:01; Admin Dose 20 MG; Start 09/05/16 at 17:57 Ferric Sodium Gluconate Complex/ Sodium Chloride (Ferrlecit/NS) 110 ml @ 110 mls/hr Q24H IVPB Last administered on 09/09/16 09:02; Admin Dose 110 MLS/HR; Start 09/07/16 at 09:00; Stop 09/11/16 at 09:59 Epoetin Rio (Epogen (Non Esrd/Non Oncology)) 10,000 units MoWeFr@17 SC Last administered on 09/07/16t 17:20; Admin Dose 10,000 UNITS; Start 09/07/16 at 17:00 RICKY CHUNG NP September 09, 2016 15:52
[2016-09-09] MEDS: EPOETIN 10000 UNITS/ML (NON ESRD/NON ONCOLOGY) SC SCH (17:30)
--- NOTE | 2016-09-09 18:46 | CONS ---
Date/Time of Note Date/Time of Note DATE: 09/09/16 TIME: 18:46 Assessment/Plan Assessment/Plan Chief Complaint/Hosp Course 65 yo male with CKD found with faint IgA (kappa) monoclonal immunoglobulin detected on serum and urine immunofixation. Although monoclonal gammopathy can be seen in CKD it is reasonable to rule out multiple myeloma or smoldering myeloma. We will first order the SPEP to see if there is a clinically significant amount of monoclonal protein. We will also order quantitative immunoglobulins and Mott/ lambda Light chains. # Concern for monoclonal gammopathy -f/u SPEP, Free Mott/ Lambda LC (pending). IgG and IGA are both elevated without reciprocal depression of IgM (normal at 83). Low suspicion for myleoma , likely related to CKD. -if the above labs are abnormal, we will need to pursue a bone marrow bx to confirm the presence of multiple myeloma. # Anemia - this is likely secondary to iron deficiency as well as CKD -cont Ferrlecit as ordered -Epo level ordered to see if patient would benefit from procrit (pending) # CHF - ER 20% -management per cardiology # CKD -management per nephrology Problems: Consultation Date/Type/Reason Admit Date/Time Aug 31, 2016 at 19:32 Initial Consult Date 09/07/16 Type of Consultation: Hematology Referring Provider: RICKY CHUNG NP 24 HR Interval Summary Free Text/Dictation No complaints. Exam/Review of Systems Vital Signs Vitals Vital Signs Date Time Temp Pulse Resp B/P Pulse Ox O2 Delivery O2 Flow Rate FiO2 09/09/16 16:39 76 09/09/16 15:46 98.1 18 116/59 96 09/08/16 21:00 Nasal Cannula 2.0 Intake and Output 09/08/16 09/08/16 09/09/16 15:00 23:00 07:00 Intake Total 650 ml 830 ml 500 ml Output Total 1000 ml 1000 ml 990 ml Balance -350 ml -170 ml -490 ml Exam Constitutional: alert, oriented Psych: no complaints Head: normocephalic Eyes: nl conjunctiva ENMT: nl external ears & nose, nl lips & teeth Neck: non-tender, supple Respiratory: clear to auscultation, normal air movement Cardiovascular: regular rate and rhythm Gastrointestinal: soft Musculoskeletal: nl extremities to inspection, nl gait and stance Extremities: normal pulses, other (s/p amputation) Results Result Diagram: 09/09/16 0700 09/09/16 0700 Results 24 hrs Laboratory Tests Test 09/08/16 20:58 09/09/16 02:34 09/09/16 07:00 09/09/16 07:43 Bedside Glucose 204 144 108 White Blood Count 6.0 # Red Blood Count 3.56 L Hemoglobin 8.7 L Hematocrit 28.3 L Mean Corpuscular Volume 79.5 L Mean Corpuscular Hemoglobin 24.4 L Mean Corpuscular Hemoglobin Concent 30.7 L Red Cell Distribution Width 17.2 H Platelet Count 204 Mean Platelet Volume 10.3 Neutrophils % 66.7 Lymphocytes % 17.5 Monocytes % 8.8 Eosinophils % 6.0 Basophils % 0.5 Nucleated Red Blood Cells % 0.0 Neutrophils # 4.0 Lymphocytes # 1.1 Monocytes # 0.5 Eosinophils # 0.4 Basophils # 0.0 Nucleated Red Blood Cells # 0.0 Sodium Level 139 Potassium Level 4.3 Chloride Level 101 Carbon Dioxide Level 29 Anion Gap 13 Blood Urea Nitrogen 64 H Creatinine 2.07 H Glucose Level 123 Calcium Level 8.5 Magnesium Level 1.7 Test 09/09/16 11:52 09/09/16 17:25 Bedside Glucose 144 156 Medications Medications Current Medications Heparin Sodium (Porcine) (Heparin (5000 Units/0.5 ml)) 5,000 unit BID SC Last administered on 09/09/16 09:05; Admin Dose 5,000 UNIT; Start 09/01/16 at 09:00 Acetaminophen (Tylenol Tab) 650 mg Q6H PRN PO PAIN AND OR ELEVATED TEMP Last administered on 09/08/16 12:57; Admin Dose 650 MG; Start 09/01/16 at 05:00 Insulin Glargine (Lantus) 12 unit DAILY@20 SC Last administered on 09/08/16 21: 07; Admin Dose 12 UNIT; Start 09/01/16 at 20:00 Diagnostic Test (Pha) (Accu-Chek) 1 ea 02 XX Last administered on 09/09/16 02: 34; Admin Dose 1 EA; Start 09/02/16 at 02:00 Ondansetron HCl (Zofran Inj) 4 mg Q6H PRN IV NAUSEA AND/OR VOMITING; Start at 05:00 Miscellaneous Information 1 ea NOTE XX ; Start 09/01/16 at 05:00 Glucose (Glutose) 15 gm Q15M PRN PO DECREASED GLUCOSE; Start 09/01/16 at 05:00 Glucose (Glutose) 22.5 gm Q15M PRN PO DECREASED GLUCOSE; Start 09/01/16 at 05: 00 Dextrose (D50w Syringe) 25 ml Q15M PRN IV DECREASED GLUCOSE; Start 09/01/16 at 05:00 Dextrose (D50w Syringe) 50 ml Q15M PRN IV DECREASED GLUCOSE; Start 09/01/16 at 05:00 Glucagon (Glucagen) 1 mg Q15M PRN IM DECREASED GLUCOSE; Start 09/01/16 at 05:00 Glucose (Glutose) 15 gm Q15M PRN BUCCAL DECREASED GLUCOSE; Start 09/01/16 at 05 :00 Aspirin (Halfprin) 81 mg DAILY PO Last administered on 09/09/16 09:01; Admin Dose 81 MG; Start 09/01/16 at 09:00 Hydroxyzine HCl (Atarax) 25 mg Q6H PRN GTB ITCHING; Start 09/01/16 at 08:30 Docusate Sodium (Colace) 100 mg DAILY PO Last administered on 09/09/16 09:01; Admin Dose 100 MG; Start 09/01/16 at 09:00 Metoprolol Succinate (Toprol Xl) 12.5 mg BID PO Last administered on 09/09/16 09:01; Admin Dose 12.5 MG; Start 09/03/16 at 21:00 Hydralazine HCl (Apresoline) 10 mg Q8 PO Last administered on 09/09/16 14:49; Admin Dose 10 MG; Start 09/03/16 at 22:00 Famotidine 20 mg 20 mg DAILY PO Last administered on 09/09/16 09:01; Admin Dose 20 MG; Start 09/05/16 at 17:57 Ferric Sodium Gluconate Complex/ Sodium Chloride (Ferrlecit/NS) 110 ml @ 110 mls/hr Q24H IVPB Last administered on 09/09/16 09:02; Admin Dose 110 MLS/HR; Start 09/07/16 at 09:00; Stop 09/11/16 at 09:59 Epoetin Rio (Epogen (Non Esrd/Non Oncology)) 10,000 units MoWeFr@17 SC Last administered on 09/09/16t 17:30; Admin Dose 10,000 UNITS; Start 09/07/16 at 17:00 TOOLIVE MD September 09, 2016 18:46
[2016-09-09] MEDS: INSULIN GLARGINE [LANtus] 3 ML PEN SC SCH (20:11)
[2016-09-09 23:07] LABS: ABNORMAL PROTEIN BAND 1 0.3 g/dL (NONE DETECTED); ABNORMAL PROTEIN BAND 2 0.5 g/dL (NONE DETECTED); ALBUMIN 3.3 g/dL (3.8-4.8)
[2016-09-10] VITALS (10 sets, daily range): BP systolic 111–121; BP diastolic 52–68; PULSE 72–92; RESP 18–20
[2016-09-10] MEDS: ACCU-CHEK XX SCH (02:00)
[2016-09-10] MEDS: FUROSEMIDE 40 MG TAB PO SCH (06:04)
[2016-09-10 07:31] LABS: ADD SCAN DIFF NO
[2016-09-10 07:40] LABS: HEMATOCRIT 29.5 % (42.0-52.0); MEAN CORPUSCULAR HEMOGLOBIN 24.1 pg (29.0-33.0); MEAN CORPUSCULAR HGB CONC 30.5 g/dl (32.0-37.0); MEAN CORPUSCULAR VOLUME 78.9 fl (82.0-101.0); MEAN PLATELET VOLUME 10.1 fl (7.4-10.4); PLATELET COUNT 233 10^3/UL (140-415); RED BLOOD COUNT 3.74 10^6/ul (4.70-6.10); RED CELL DISTRIBUTION WIDTH 17.2 % (11.5-14.5); WHITE BLOOD COUNT 12.2 10^3/ul (4.8-10.8)
[2016-09-10 07:53] LABS: POTASSIUM 4.7 mmol/L (3.5-5.1)
[2016-09-10 07:55] LABS: CREATININE 2.13 mg/dl (0.61-1.24)
[2016-09-10 07:56] LABS: CALCIUM 8.6 mg/dl (8.4-10.2)
[2016-09-10] MEDS: INSULIN ASPART [NOVOLOG] 3 ML PEN SC SCH ×2 (08:00→12:37)
[2016-09-10 08:02] LABS: MAGNESIUM 1.7 mg/dl (1.7-2.5); PHOSPHORUS 4.5 mg/dl (2.5-4.9)
[2016-09-10] MEDS: FAMOTIDINE 20 MG TAB PO SCH (09:04)
[2016-09-10] MEDS: SOD FERRIC GLUC COMPLX 125 MG in SOD CHLORIDE 0.9% 100 ML IVPB SCH (09:04)
[2016-09-10] MEDS: DOCUSATE SODIUM 100 MG CAP PO SCH (09:04)
[2016-09-10] MEDS: ASPIRIN (EC) 81 MG TAB PO SCH (09:04)
[2016-09-10] MEDS: METOPROLOL (XL) 25 MG TAB PO SCH (09:05)
--- NOTE | 2016-09-10 09:22 | CONS ---
Date/Time of Note Date/Time of Note DATE: 09/10/16 TIME: 09:21 Assessment/Plan Assessment/Plan Additional Assessment/Plan 1. CKD stable. 2. Heme eval reviewed 3. CHF resolved, now on lower dose diuretic regimen 4. Renal Fx is stable 5. Will gladly see on request Consultation Date/Type/Reason Admit Date/Time Aug 31, 2016 at 19:32 Type of Consultation: Hematology Referring Provider: RICKY CHUNG [employer] ADMINISTRATOR Detailed Summary Respiratory: shortness of breath Cardiovascular: No chest pain Gastrointestinal: no complaints Genitourinary: no complaints Exam/Review of Systems Vital Signs Vitals Vital Signs Date Time Temp Pulse Resp B/P Pulse Ox O2 Delivery O2 Flow Rate FiO2 09/10/16 08:00 78 09/10/16 07:51 98.1 18 111/60 94 09/08/16 21:00 Nasal Cannula 2.0 Intake and Output 09/09/16 09/09/16 09/10/16 15:00 23:00 07:00 Intake Total 1060 ml 800 ml Output Total 1000 ml Balance 1060 ml -200 ml Exam Neck: No jvd Respiratory: diminished breath sounds (and few rales) Cardiovascular: S3, regular rate and rhythm Gastrointestinal: soft Extremities: No edema Results Result Diagram: 09/10/16 0649 09/10/16 0649 Results 24 hrs Laboratory Tests Test 09/09/16 11:52 09/09/16 17:25 09/09/16 20:05 09/09/16 21:09 Bedside Glucose 144 156 181 179 Test 09/10/16 06:49 09/10/16 08:46 White Blood Count 12.2 #H Red Blood Count 3.74 L Hemoglobin 9.0 L Hematocrit 29.5 L Mean Corpuscular Volume 78.9 L Mean Corpuscular Hemoglobin 24.1 L Mean Corpuscular Hemoglobin Concent 30.5 L Red Cell Distribution Width 17.2 H Platelet Count 233 Mean Platelet Volume 10.1 Sodium Level 139 Potassium Level 4.7 Chloride Level 97 Carbon Dioxide Level 30 Anion Gap 17 H Blood Urea Nitrogen 67 H Creatinine 2.13 H Glucose Level 121 Calcium Level 8.6 Phosphorus Level 4.5 Magnesium Level 1.7 Bedside Glucose 116 Medications Medications Current Medications Heparin Sodium (Porcine) (Heparin (5000 Units/0.5 ml)) 5,000 unit BID SC Last administered on 09/09/16 21:15; Admin Dose 5,000 UNIT; Start 09/01/16 at 09:00 Acetaminophen (Tylenol Tab) 650 mg Q6H PRN PO PAIN AND OR ELEVATED TEMP Last administered on 09/08/16 12:57; Admin Dose 650 MG; Start 09/01/16 at 05:00 Insulin Glargine (Lantus) 12 unit DAILY@20 SC Last administered on 09/09/16 20: 11; Admin Dose 12 UNIT; Start 09/01/16 at 20:00 Diagnostic Test (Pha) (Accu-Chek) 1 ea 02 XX Last administered on 09/09/16 02: 34; Admin Dose 1 EA; Start 09/02/16 at 02:00 Ondansetron HCl (Zofran Inj) 4 mg Q6H PRN IV NAUSEA AND/OR VOMITING; Start at 05:00 Miscellaneous Information 1 ea NOTE XX ; Start 09/01/16 at 05:00 Glucose (Glutose) 15 gm Q15M PRN PO DECREASED GLUCOSE; Start 09/01/16 at 05:00 Glucose (Glutose) 22.5 gm Q15M PRN PO DECREASED GLUCOSE; Start 09/01/16 at 05: 00 Dextrose (D50w Syringe) 25 ml Q15M PRN IV DECREASED GLUCOSE; Start 09/01/16 at 05:00 Dextrose (D50w Syringe) 50 ml Q15M PRN IV DECREASED GLUCOSE; Start 09/01/16 at 05:00 Glucagon (Glucagen) 1 mg Q15M PRN IM DECREASED GLUCOSE; Start 09/01/16 at 05:00 Glucose (Glutose) 15 gm Q15M PRN BUCCAL DECREASED GLUCOSE; Start 09/01/16 at 05 :00 Aspirin (Halfprin) 81 mg DAILY PO Last administered on 09/09/16 09:01; Admin Dose 81 MG; Start 09/01/16 at 09:00 Hydroxyzine HCl (Atarax) 25 mg Q6H PRN GTB ITCHING; Start 09/01/16 at 08:30 Docusate Sodium (Colace) 100 mg DAILY PO Last administered on 09/09/16 09:01; Admin Dose 100 MG; Start 09/01/16 at 09:00 Metoprolol Succinate (Toprol Xl) 12.5 mg BID PO Last administered on 09/09/16 21:14; Admin Dose 12.5 MG; Start 09/03/16 at 21:00 Hydralazine HCl (Apresoline) 10 mg Q8 PO Last administered on 09/09/16 22:10; Admin Dose 10 MG; Start 09/03/16 at 22:00 Famotidine 20 mg 20 mg DAILY PO Last administered on 09/09/16 09:01; Admin Dose 20 MG; Start 09/05/16 at 17:57 Ferric Sodium Gluconate Complex/ Sodium Chloride (Ferrlecit/NS) 110 ml @ 110 mls/hr Q24H IVPB Last administered on 09/09/16 09:02; Admin Dose 110 MLS/HR; Start 09/07/16 at 09:00; Stop 09/11/16 at 09:59 Epoetin Rio (Epogen (Non Esrd/Non Oncology)) 10,000 units MoWeFr@17 SC Last administered on 09/09/16 17:30; Admin Dose 10,000 UNITS; Start 09/07/16 at 17:00 JACKIE FROST MD September 10, 2016 09:22
[2016-09-10] MEDS: HEPARIN 5,000 UNIT/0.5 ML VIAL SC SCH (09:37)
[2016-09-10 10:49] LABS: BASOPHILS % 0.4 % (0.0-2.0); EOSINOPHILS % 2.5 % (0.0-7.0); LYMPHOCYTES % 8.7 % (15.0-51.0); MONOCYTES % 5.7 % (0.0-11.0); NEUTROPHILS % 82.2 % (39.0-77.0)
[2016-09-10 10:50] LABS: BASOPHIL # 0.1 10^3/ul (0.0-0.1); EOSINOPHILS # 0.3 10^3/ul (0.0-0.5); LYMPHOCYTES # 1.1 10^3/ul (0.8-2.9); MONOCYTE # 0.7 10^3/ul (0.3-0.9); NEUTROPHIL # 10.1 10^3/ul (1.6-7.5); TOTAL CELLS COUNTED % 100
--- NOTE | 2016-09-10 12:47 | CONS ---
Date/Time of Note Date/Time of Note DATE: 09/10/16 TIME: 12:46 Assessment/Plan Assessment/Plan Additional Assessment/Plan 1. Congestive heart failure, systolic, acute on chronic, likely.-negative troponin x 3. NOw s/p lexsiacn with scar but no reversible ischemia LVEF 21% - outpt ICDeval. 2. Cardiomyopathy with severely depressed left ventricular ejection fraction.15 -20% by echo this admit - ICD advised if stable EF. 3. Abnormal electrocardiogram with left bundle branch block pattern; negative troponins greater than 3. 4. Hypertension, under reasonable control. BETTER now. 5. Peripheral vascular disease, status post right above the knee amputation. 6. Renal failure 7. Hyperkalemia-improved today 8. Anemia. 9.Dyslipidemia-LDL 93 HDL 27 10. Monoclonal gammopathy Consultation Date/Type/Reason Admit Date/Time Aug 31, 2016 at 19:32 Type of Consultation: Hematology Referring Provider: RICKY CHUNG NP 24 HR Interval Summary Free Text/Dictation NO acute events -no significant ectopy on tele. ROS: No fever, no chills, no nausea, no vomiting, no diarrhea/constipation No recent weight changes No chest pain, no PND, no orthopnea No dizziness, blurred vision No thirst, no heat or cold intolerance Exam/Review of Systems Vital Signs Vitals Vital Signs Date Time Temp Pulse Resp B/P Pulse Ox O2 Delivery O2 Flow Rate FiO2 09/10/16 11:43 98.0 18 18 117/68 95 09/08/16 21:00 Nasal Cannula 2.0 Intake and Output 09/09/16 09/09/16 09/10/16 15:00 23:00 07:00 Intake Total 1060 ml 800 ml Output Total 1000 ml Balance 1060 ml -200 ml Exam General: WN/WD/NAD, AOx 2-3 HEENT: Unicetric/atraumatic/EOMI (follow commands) NECK: JVD elevated, no thyromegaly Lymph: no lymphadenopathy HEART: regular with no S3, II/ systolic murmur at apex LUNGS: Coarse sounds ABD: soft, NT, ND, +BS : Intact Neuro: non focal SKIN: chronic changes EXT: trace edema, amput Results Result Diagram: 09/10/16 0649 09/10/16 0649 Results 24 hrs Laboratory Tests Test 09/09/16 17:25 09/09/16 20:05 09/09/16 21:09 09/10/16 06:49 Bedside Glucose 156 181 179 White Blood Count 12.2 #H Red Blood Count 3.74 L Hemoglobin 9.0 L Hematocrit 29.5 L Mean Corpuscular Volume 78.9 L Mean Corpuscular Hemoglobin 24.1 L Mean Corpuscular Hemoglobin Concent 30.5 L Red Cell Distribution Width 17.2 H Platelet Count 233 Mean Platelet Volume 10.1 Neutrophils % 82.2 H Lymphocytes % 8.7 L Monocytes % 5.7 Eosinophils % 2.5 Basophils % 0.4 Nucleated Red Blood Cells % 0.0 Neutrophils # 10.1 H Lymphocytes # 1.1 Monocytes # 0.7 Eosinophils # 0.3 Basophils # 0.1 Nucleated Red Blood Cells # 0.0 Sodium Level 139 Potassium Level 4.7 Chloride Level 97 Carbon Dioxide Level 30 Anion Gap 17 H Blood Urea Nitrogen 67 H Creatinine 2.13 H Glucose Level 121 Calcium Level 8.6 Phosphorus Level 4.5 Magnesium Level 1.7 Test 09/10/16 08:46 09/10/16 12:33 Bedside Glucose 116 150 Medications Medications Current Medications Heparin Sodium (Porcine) (Heparin (5000 Units/0.5 ml)) 5,000 unit BID SC Last administered on 09/10/16 09:37; Admin Dose 5,000 UNIT; Start 09/01/16 at 09:00 Acetaminophen (Tylenol Tab) 650 mg Q6H PRN PO PAIN AND OR ELEVATED TEMP Last administered on 09/08/16 12:57; Admin Dose 650 MG; Start 09/01/16 at 05:00 Insulin Glargine (Lantus) 12 unit DAILY@20 SC Last administered on 09/09/16 20: 11; Admin Dose 12 UNIT; Start 09/01/16 at 20:00 Diagnostic Test (Pha) (Accu-Chek) 1 ea 02 XX Last administered on 09/09/16 02: 34; Admin Dose 1 EA; Start 09/02/16 at 02:00 Ondansetron HCl (Zofran Inj) 4 mg Q6H PRN IV NAUSEA AND/OR VOMITING; Start at 05:00 Miscellaneous Information 1 ea NOTE XX ; Start 09/01/16 at 05:00 Glucose (Glutose) 15 gm Q15M PRN PO DECREASED GLUCOSE; Start 09/01/16 at 05:00 Glucose (Glutose) 22.5 gm Q15M PRN PO DECREASED GLUCOSE; Start 09/01/16 at 05: 00 Dextrose (D50w Syringe) 25 ml Q15M PRN IV DECREASED GLUCOSE; Start 09/01/16 at 05:00 Dextrose (D50w Syringe) 50 ml Q15M PRN IV DECREASED GLUCOSE; Start 09/01/16 at 05:00 Glucagon (Glucagen) 1 mg Q15M PRN IM DECREASED GLUCOSE; Start 09/01/16 at 05:00 Glucose (Glutose) 15 gm Q15M PRN BUCCAL DECREASED GLUCOSE; Start 09/01/16 at 05 :00 Aspirin (Halfprin) 81 mg DAILY PO Last administered on 09/10/16 09:04; Admin Dose 81 MG; Start 09/01/16 at 09:00 Hydroxyzine HCl (Atarax) 25 mg Q6H PRN GTB ITCHING; Start 09/01/16 at 08:30 Docusate Sodium (Colace) 100 mg DAILY PO Last administered on 09/10/16 09:04; Admin Dose 100 MG; Start 09/01/16 at 09:00 Metoprolol Succinate (Toprol Xl) 12.5 mg BID PO Last administered on 09/10/16 09:05; Admin Dose 12.5 MG; Start 09/03/16 at 21:00 Hydralazine HCl (Apresoline) 10 mg Q8 PO Last administered on 09/09/16 22:10; Admin Dose 10 MG; Start 09/03/16 at 22:00 Famotidine 20 mg 20 mg DAILY PO Last administered on 09/10/16 09:04; Admin Dose 20 MG; Start 09/05/16 at 17:57 Ferric Sodium Gluconate Complex/ Sodium Chloride (Ferrlecit/NS) 110 ml @ 110 mls/hr Q24H IVPB Last administered on 09/10/16 09:04; Admin Dose 110 MLS/HR; Start 09/07/16 at 09:00; Stop 09/11/16 at 09:59 Epoetin Rio (Epogen (Non Esrd/Non Oncology)) 10,000 units MoWeFr@17 SC Last administered on 09/09/16 17:30; Admin Dose 10,000 UNITS; Start 09/07/16 at 17:00 JACKIE PACHECO MD September 10, 2016 12:47
--- NOTE | 2016-09-10 13:49 | PN ---
Date/Time of Note Date/Time of Note DATE: 09/10/16 TIME: 13:47 Assessment/Plan VTE Prophylaxis VTE Prophylaxis Intervention: heparin Lines/Catheters IV Catheter Type (from [facility]): Saline Lock Assessment/Plan Chief Complaint/Hosp Course 1. Acute respiratory failure. Hypoxic. Secondary to congestive heart failure exacerbation. Systolic dysfunction. Continue supplemental oxygen and inhaled bronchodilators. 2. Cardiomyopathy with ejection fraction of 15% to 20%. Continue cardiac medications including beta blockers and hydralazine. The patient is not an ideal candidate for JACQUELINE inhibitors because of underlying renal function. 3. Acute on chronic congestive heart failure exacerbation. Systolic dysfunction. Continue on diuretics as per nephrology. 4. Acute on chronic kidney disease. Continue to monitor BUN and creatinine closely. Nephrology following. 5. Essential hypertension. Continue antihypertensives. Blood pressure slightly on the lower side. 6. History of coronary artery disease. Continue antiplatelet therapy. 7. Diabetes mellitus type 2. Hemoglobin A1c 5.4. Continue sliding scale insulin. Blood sugars fairly good control. 8. Dyslipidemia. Reinforced low cholesterol diet. 9. Hyperkalemia, most probably secondary to underlying worsening renal function. Management as per nephrology. 10. Peripheral vascular disease. Continue antiplatelet therapy. 11. Monoclonal gammopathy. The patient being followed by hematology. 12. Fluid, electrolytes and nutrition. Carbohydrate controlled, low cholesterol diet. 13 Deep venous thrombosis prophylaxis, subcutaneous heparin. 14. Gastrointestinal prophylaxis. Histamine 2 receptor blockers. PLAN: 1. Continue current management. 2. Continue to monitor renal function closely. 3. Await further recommendations from consultants. Case discussed with Dr. Fuentes. Problems: Subjective 24 Hr Interval Summary Free Text/Dictation Vital signs stable. Exam/Review of Systems Vital Signs Vitals Vital Signs Date Time Temp Pulse Resp B/P Pulse Ox O2 Delivery O2 Flow Rate FiO2 09/10/16 11:43 98.0 18 18 117/68 95 09/08/16 21:00 Nasal Cannula 2.0 Intake and Output 09/09/16 09/09/16 09/10/16 15:00 23:00 07:00 Intake Total 1060 ml 800 ml Output Total 1000 ml Balance 1060 ml -200 ml Exam GENERAL: This is a 65-year-old male sitting in bed in no apparent distress. HEENT: Head normocephalic and atraumatic. Eyes: Anicteric sclerae. Conjunctivae clear. ENT: Nasal septum is midline. Oral mucosa is moist. NECK: Supple. No JVD noticed. RESPIRATORY: Bilaterally diminished breath sounds. Right basilar rales. CARDIAC: Regular rate and rhythm. S1 and S2 heard. GENITOURINARY: Deferred. EXTREMITIES: No cyanosis, no clubbing. Right-sided below knee amputation. NEUROLOGIC: The patient is awake, alert and oriented. Cranial nerves are grossly intact. Results Result Diagram: 09/10/16 0649 09/10/16 0649 Results 24 hrs Laboratory Tests Test 09/09/16 17:25 09/09/16 20:05 09/09/16 21:09 09/10/16 06:49 Bedside Glucose 156 181 179 White Blood Count 12.2 #H Red Blood Count 3.74 L Hemoglobin 9.0 L Hematocrit 29.5 L Mean Corpuscular Volume 78.9 L Mean Corpuscular Hemoglobin 24.1 L Mean Corpuscular Hemoglobin Concent 30.5 L Red Cell Distribution Width 17.2 H Platelet Count 233 Mean Platelet Volume 10.1 Neutrophils % 82.2 H Lymphocytes % 8.7 L Monocytes % 5.7 Eosinophils % 2.5 Basophils % 0.4 Nucleated Red Blood Cells % 0.0 Neutrophils # 10.1 H Lymphocytes # 1.1 Monocytes # 0.7 Eosinophils # 0.3 Basophils # 0.1 Nucleated Red Blood Cells # 0.0 Sodium Level 139 Potassium Level 4.7 Chloride Level 97 Carbon Dioxide Level 30 Anion Gap 17 H Blood Urea Nitrogen 67 H Creatinine 2.13 H Glucose Level 121 Calcium Level 8.6 Phosphorus Level 4.5 Magnesium Level 1.7 Test 09/10/16 08:46 09/10/16 12:33 Bedside Glucose 116 150 Medications Medications Current Medications Heparin Sodium (Porcine) (Heparin (5000 Units/0.5 ml)) 5,000 unit BID SC Last administered on 09/10/16 09:37; Admin Dose 5,000 UNIT; Start 09/01/16 at 09:00 Acetaminophen (Tylenol Tab) 650 mg Q6H PRN PO PAIN AND OR ELEVATED TEMP Last administered on 09/08/16 12:57; Admin Dose 650 MG; Start 09/01/16 at 05:00 Insulin Glargine (Lantus) 12 unit DAILY@20 SC Last administered on 09/09/16 20: 11; Admin Dose 12 UNIT; Start 09/01/16 at 20:00 Diagnostic Test (Pha) (Accu-Chek) 1 ea 02 XX Last administered on 09/09/16 02: 34; Admin Dose 1 EA; Start 09/02/16 at 02:00 Ondansetron HCl (Zofran Inj) 4 mg Q6H PRN IV NAUSEA AND/OR VOMITING; Start at 05:00 Miscellaneous Information 1 ea NOTE XX ; Start 09/01/16 at 05:00 Glucose (Glutose) 15 gm Q15M PRN PO DECREASED GLUCOSE; Start 09/01/16 at 05:00 Glucose (Glutose) 22.5 gm Q15M PRN PO DECREASED GLUCOSE; Start 09/01/16 at 05: 00 Dextrose (D50w Syringe) 25 ml Q15M PRN IV DECREASED GLUCOSE; Start 09/01/16 at 05:00 Dextrose (D50w Syringe) 50 ml Q15M PRN IV DECREASED GLUCOSE; Start 09/01/16 at 05:00 Glucagon (Glucagen) 1 mg Q15M PRN IM DECREASED GLUCOSE; Start 09/01/16 at 05:00 Glucose (Glutose) 15 gm Q15M PRN BUCCAL DECREASED GLUCOSE; Start 09/01/16 at 05 :00 Aspirin (Halfprin) 81 mg DAILY PO Last administered on 09/10/16 09:04; Admin Dose 81 MG; Start 09/01/16 at 09:00 Hydroxyzine HCl (Atarax) 25 mg Q6H PRN GTB ITCHING; Start 09/01/16 at 08:30 Docusate Sodium (Colace) 100 mg DAILY PO Last administered on 09/10/16 09:04; Admin Dose 100 MG; Start 09/01/16 at 09:00 Metoprolol Succinate (Toprol Xl) 12.5 mg BID PO Last administered on 09/10/16 09:05; Admin Dose 12.5 MG; Start 09/03/16 at 21:00 Hydralazine HCl (Apresoline) 10 mg Q8 PO Last administered on 09/09/16 22:10; Admin Dose 10 MG; Start 09/03/16 at 22:00 Famotidine 20 mg 20 mg DAILY PO Last administered on 09/10/16 09:04; Admin Dose 20 MG; Start 09/05/16 at 17:57 Ferric Sodium Gluconate Complex/ Sodium Chloride (Ferrlecit/NS) 110 ml @ 110 mls/hr Q24H IVPB Last administered on 09/10/16 09:04; Admin Dose 110 MLS/HR; Start 09/07/16 at 09:00; Stop 09/11/16 at 09:59 Epoetin Rio (Epogen (Non Esrd/Non Oncology)) 10,000 units MoWeFr@17 SC Last administered on 09/09/16 17:30; Admin Dose 10,000 UNITS; Start 09/07/16 at 17:00 RICKY CHUNG NP September 10, 2016 13:49
--- NOTE | 2016-09-10 16:14 | PDOCDIS ---
Discharge Instructions DIAGNOSIS Discharge Diagnosis: CHF exacerbation. CONDITION Patient Condition: Stable HOME CARE INSTRUCTIONS: Special Diet: 1800 ADA; 2g NA, low potassium. FOLLOW UP/APPOINTMENTS Appointments 1. Angela Cole MD Specialty: Oncology, Hematology Office Address: [address] [place] [address] [address] [id number] Office or [phone] (after hours) 2. Ochoa Oneill MD Specialty: Cardiology Office Address: [address] [place], [place] [id number] Office 3. Shahab Sesay MD Specialty: Internal Medicine Office Address: [address] [place], [place] [id number] Office OTHER ORDERS: Other Orders: 1. Take medications as per prescription. 2. Resume activities as tolerated. 3. Follow-up with in 2 weeks for further evaluation of abnormal lab findings. 4. Follow-up with cardiology [Dr. Oneill] in 2 weeks. 5. Follow-up with nephrology [Dr. Sesay] in 2 weeks. RICKY CHUNG NP September 10, 2016 16:14
[2016-09-10] MEDS ORDERED: HYDR-3670 PO (16:17)
[2016-09-10] MEDS ORDERED: FURO40TA4 PO (16:17)
[2016-09-10] MEDS ORDERED: FER325 PO (16:19)
--- NOTE | 2016-09-10 16:49 | HKNOTE ---
DATE OF SERVICE: 09/10/2016 Mr. Phan is a 65-year-old [place] gentleman with a history of CKD and congestive heart failure, was found to have elevated IgG and IgA. Faint IgA kappa monoclonal protein was seen on urine and serum immunofixation. The patient also has history of CKD. A workup for myeloma is in progress. PHYSICAL EXAMINATION: GENERAL: Shows a moderately built male in no distress. ENT: Normal. HEART: Normal. LUNGS: Normal. ABDOMEN: There is no hepatosplenomegaly or lymphadenopathy. LABORATORY DATA: His CBC is unremarkable except for hemoglobin of 9 with MCV 78.9. CMP also is unremarkable except for creatinine 2.1 and a slightly elevated alkaline phosphatase. His albumin is 3 and globulin is 3.7. His ferritin is 92, but the iron saturation is low at 5%. The patient has had IV iron. IMPRESSION: 1. Faint IgA kappa monoclonal protein could be secondary to renal disease, but need to rule out myeloma. 2. Anemia with a low serum iron saturation, also rule out B12 or folate deficiency or gastrointestinal bleeding. 3. Chronic kidney disease. PLAN: This patient eventually will need a bone marrow. This probably can be done in the office after all other results are available. For the anemia, I will add a stool Hemoccult, B12, folate and LDH levels to complete the workup. Dictated By: GISELLA VILLANUEVA/IMTIAZ Conf#: [id number] DID#: [id number]
[2016-09-10 18:06] LABS: FOLATE 7.4 ng/ml (2.8-20.0)
--- NOTE | 2016-09-10 23:14 | DS ---
DATE OF ADMISSION: 08/31/2016 DATE OF DISCHARGE: 09/10/2016 FINAL DIAGNOSES 1. Acute hypoxic respiratory failure secondary to congestive heart failure exacerbation. 2. Qfcas-ck-ktcioqg congestive heart failure exacerbation, systolic dysfunction. 3. Cardiomyopathy with ejection fraction of 15%-20%. 4. Sstzf-tm-xwaeqjo kidney disease. 5. Essential hypertension. 6. Coronary artery disease. 7. Type 2 diabetes mellitus. 8. Dyslipidemia. 9. Hyperkalemia, resolved. 10. Peripheral vascular disease. 11. Monoclonal gammopathy. 12. Microcytic hypochromic anemia with iron deficiency. 13. Pulmonary hypertension. CONSULTATIONS: 1. Shahab Sesay MD, nephrology. 2. Ochoa Oneill MD, cardiology. 3. Shahab Littlejohn MD, cardiology. 4. Angela Cole MD, hematology. 5. Ileana Pineda MD, hematology. 6. Valdo Bhatia MD, hematology. HOSPITAL COURSE: This is a 65-year-old male with past medical history of type 2 diabetes, congestive heart failure, right above-knee amputation, possible CAD in [facility], [place] a few years ago, peripheral neuropathy, diabetes, and hypertension who presented to the emergency department with a chief complaint of dyspnea. The patient verbalized that his symptoms have been progressively getting worse. The patient denied any chest pain, nausea, vomiting, diaphoresis, fevers, or chills. In the emergency room, the patient was noticed to be tachypneic with respiratory rate in the 30s. The patient's chest x-ray showed cardiomegaly with mild interstitial CHF and small bilateral pleural effusions, right greater than left. Provided the patient's history of present illness, his comorbidities , and the diagnostic findings, a clinical decision was made to admit the patient to inpatient setting to have him further evaluated. The patient was admitted to inpatient telemetry floor. A cardiology consult and nephrology consult was called on this patient. The patient's acute respiratory failure was caused by his congestive heart failure exacerbation. The patient was adequately diuresed. However, caution was used with the diuresis because of the patient's underlying chronic kidney disease with worsening renal function, as evidenced by hyperkalemia. The patient underwent a 2D echocardiogram that showed evidence of ischemic cardiomyopathy with ejection fraction of 15%-20%. The patient was maintained on beta-blockers and hydralazine. The patient was not an appropriate candidate for JACQUELINE inhibitors or ARB because of underlying worsening renal function. The patient was maintained on antihypertensives for his underlying hypertension. The patient was maintained on antiplatelet therapy for his underlying CAD. The patient has underlying type 2 diabetes mellitus. The patient's hemoglobin A1c was 5.4. The patient was maintained on sliding scale insulin with well- controlled blood sugars. The patient also was noticed to have dyslipidemia. The patient was reinforced on a low-cholesterol diet. The patient also has underlying peripheral vascular disease. The patient was maintained on antiplatelet therapy for the same. The patient's workup for his chronic kidney disease showed some monoclonal gammopathy. Hematology was consulted on the patient. Hematology ordered further workup, and hematology concluded that he has faint IgA kappa monoclonal protein, which could be secondary to renal disease, but needs to be ruled out for any underlying myeloma. The patient eventually needs a bone marrow biopsy, that can be done as an outpatient after all other results are available. The patient also had underlying microcytic hypochromic anemia with severe iron deficiency. The patient was maintained on iron supplements. The patient had a prolonged hospital course because of the slow progress in the patient's symptoms, and incidental finding of monoclonal gammopathy that needed further evaluation. The patient was cleared by all consultants to be discharged home on 09/10/2016. DISCHARGE DISPOSITION/PLAN: The patient will be discharged home today. The patient was instructed to take medications as per prescription. She was instructed to resume activities as tolerated. The patient was instructed to take a carbohydrate-controlled, low-potassium diet. The patient was instructed to follow up with Dr. Cole in 2 weeks for further evaluation of abnormal lab findings. The patient was instructed to follow up with Dr. Oneill in 2 weeks, and to follow up with Dr. Sesay in 2 weeks. The patient's family verbalized understanding of the discharge instructions. CONDITION AT DISCHARGE: Stable. DISCHARGE MEDICATIONS: 1. Ferrous sulfate 325 mg p.o. b.i.d. 2. Lasix 40 mg p.o. b.i.d. 3. Hydralazine 10 mg p.o. q.8 hours. 4. ProAir HFA 2 puffs inhaled q.4. hours p.r.n. dyspnea. 5. Aspirin 81 mg p.o. daily. 6. Colace 100 mg p.o. b.i.d. 7. Toprol XL 25 mg p.o. daily. 8. Regular insulin as per sliding scale. PERTINENT LABORATORY AND DIAGNOSTIC DATA: 1. Nuclear medicine cardiac stress test: The type and distribution of the scintigraphic abnormalities are most consistent with a large and nonreversible perfusion defect in the apex, distal to mid anterior, distal to mid anteroseptal , inferior and inferolateral muñoz, moderate hypokinesis of the left ventricle. Left ventricular ejection fraction at stress is 21%. 2. 2-D echocardiogram: Severe left ventricular systolic dysfunction. Ejection fraction is visually estimated at 15%-20%. Estimated peak PA systolic pressure of 49 mmHg. 3. Latest CBC: WBC 12.3, hemoglobin 9.0, hematocrit 29.5, platelet count 233. 4. Latest BMP: Sodium 139, potassium 4.7, chloride 97, carbon dioxide 30, anion gap 17, BUN 67, creatinine 2.13, glucose 121. 5. Hemoglobin A1c 5.4. 6. Iron panel: Iron 13, TIBC 275, iron saturation 5. 7. Fasting lipid panel: Triglycerides 99, total cholesterol 141, LDL 94, HDL 27. 8. Stool for OB x1 negative. 9. Serum immunofixation. Faint IgA kappa monoclonal immunoglobulin with faint monoclonal free kappa light chains is detected. 10. Urine immunofixation. A faint IgA kappa monoclonal immunoglobulin is detected. 11. Latest chest x-ray on 09/07/2016: Cardiomegaly, stable diffuse mild interstitial prominence in both lungs, stable bilateral lower lung infiltrates, small pleural effusions, atelectasis in the left upper lobe. At this time, we would like to thank all the consultants for seeing the patient , doing the necessary procedures, and providing clinical recommendations. The case and management of this patient was fully discussed with Dr. Valera. Approximately 40 minutes was spent on coordinating the discharge on this patient. RICKY VALERA MD, AM/IMTIAZ Conf#: [id number] DID#: [id number] MTDD
== END 2016-09-10 17:32 | disposition home or self-care (01) | DRG 291 ==
LOC: E/R 17:43 → MS4 19:32
PROVIDERS: ADMIT Internal Medicine; ATTEND Internal Medicine
DX: I13.0 Hypertensive heart and chronic kidney disease with heart failure and stage 1 through stage 4 chronic kidney disease, or unspecified chronic kidney disease (principal); I50.23 Acute on chronic systolic (congestive) heart failure; J96.01 Acute respiratory failure with hypoxia; E11.22 Type 2 diabetes mellitus with diabetic chronic kidney disease; I27.2 Other secondary pulmonary hypertension; R18.8 Other ascites; E11.42 Type 2 diabetes mellitus with diabetic polyneuropathy; D50.9 Iron deficiency anemia, unspecified; E11.51 Type 2 diabetes mellitus with diabetic peripheral angiopathy without gangrene; E87.5 Hyperkalemia; N18.9 Chronic kidney disease, unspecified; I25.10 Atherosclerotic heart disease of native coronary artery without angina pectoris; E78.5 Hyperlipidemia, unspecified; D47.2 Monoclonal gammopathy; I25.5 Ischemic cardiomyopathy; Z89.611 Acquired absence of right leg above knee; Z79.4 Long term (current) use of insulin
CPT/HCPCS: 36415; 71010; 76775; 76856; 78452; 80048; 80053; 80061; 81001; 81003; 82270; 82550; 82553; 82570; 82607; 82668; 82728; 82746; 82784; 82962; 83036; 83540; 83735; 83880; 84100; 84132; 84155; 84165; 84443; 84484; 85025; 85610; 85730; 86320; 86325; 87081; 93005; 93017; 93306; 94640; 94664; A9500; A9505; J0885; J1644; J1815; J1940; J2405; J2785; J2916